=== PATIENT | female | born 1965 | race Two or more races ===

== ENCOUNTER → 2017-04-01 | Outpatient (CLI) | payer BC ==
[~2017-04-01] MED LIST: GEMF600T3; INSU31MI32; LEVO100T8; LEVOTHYROXINE; LISI-646; LISIPOW; METF-312; METF-312 OR; SITA100T7
[2017-04-01 07:14] LABS: Urine RBC None Seen /hpf (0 - 4)
[2017-04-01 07:31] LABS: Urine Bilirubin Negative (Negative); Urine Blood Negative /uL (Negative); Urine Color Yellow (Yellow); Urine Ketone Negative (Negative); Urine Nitrite Negative (Negative); Urine Squamous Epithelial Cell FEW /hpf (<5); Urine Urobilinogen Normal (Negative)
[2017-04-01 07:36] LABS: Basophils # (auto) 0 uL; Basophils % (auto) 0.6 % (0.0-2.0); Eosinophils # (auto) 0.2 uL; Eosinophils % (auto) 3.6 % (0.0-7.0); Hematocrit 41.5 % (36.0-46.0); Hemoglobin 14.4 g/dL (12.2-16.2); Lymphocytes # (auto) 2.3 uL; Lymphocytes % (auto) 33.4 % (10.0-50.0); Mean Corpuscular Hemoglobin 30.7 pg (28.0-32.0); Mean Corpuscular Hgb Conc. 34.6 g/dL (32.0-36.0); Mean Corpuscular Volume 88.7 fL (80.0-100.0); Mean Platelet Volume 9.7 fL (7.4-10.4); Monocytes # (auto) 0.5 uL; Neutrophils # (auto) 3.8 uL; Neutrophils % (auto) 55.4 % (37.0-80.0); Platelet Count (auto) 208 10^3/uL (140-450); Red Cell Distribution Width 12.2 % (11.6-16.0); Urine Glucose 4+ mg/dL (Normal); White Blood Cell 6.8 10^3/uL (4.4-10.8)
[2017-04-01 07:55] LABS: Albumin 3.7 g/dL (3.4-5.0); Alkaline Phosphatase 87 U/L (45-117); Anion Gap 9 (5-15); Aspartate Aminotransferase 77 U/L (15-37); BUN/Creatinine Ratio 13.3; Bilirubin, Total 0.4 mg/dL (0.2-1.0); Blood Urea Nitrogen 10 mg/dL (7-18); Calcium 9.3 mg/dL (8.5-10.1); Carbon Dioxide 26 mmol/L (21-32); Chloride 99 mmol/L (98-107); Cholesterol 174 mg/dL (< 200); GFR African American 104 mL/min; GFR Non-African American 86 mL/min; Glucose 295 mg/dL (74-106); HDL Cholesterol 31 mg/dL (40-59); Potassium 4.1 mmol/L (3.5-5.1); Sodium 134 mmol/L (136-145); Total Protein 8.4 g/dL (6.4-8.2); Triglycerides 412 mg/dL (< 150)
== END | disposition home or self-care (01) ==
LOC: LAB 06:57
PROVIDERS: ATTEND Internal Medicine
DX: Z00.00 Encounter for general adult medical examination without abnormal findings (principal); E78.2 Mixed hyperlipidemia; I10 Essential (primary) hypertension; E55.9 Vitamin D deficiency, unspecified
CPT/HCPCS: 36415; 80053; 80061; 81001; 82043; 82306; 83036; 84443; 85025

== ENCOUNTER 2017-09-17 06:27 | Day surgery (SDC) | payer BC ==
[2017-09-11 09:59] LABS: Basophils # (auto) 0.1 uL; Basophils % (auto) 1.1 % (0.0-2.0); Eosinophils # (auto) 0.2 uL; Eosinophils % (auto) 2.9 % (0.0-7.0); Hematocrit 40.9 % (36.0-46.0); Hemoglobin 14.1 g/dL (12.2-16.2); Lymphocytes # (auto) 2.4 uL; Mean Corpuscular Hgb Conc. 34.3 g/dL (32.0-36.0); Mean Corpuscular Volume 93.1 fL (80.0-100.0); Mean Platelet Volume 9.2 fL (6.9-10.8); Monocytes # (auto) 0.6 uL; Monocytes % (auto) 8.8 % (0.0-12.0); Neutrophils # (auto) 3.4 uL; Neutrophils % (auto) 51.2 % (37.0-80.0); Platelet Count (auto) 161 10^3/uL (140-450); Red Cell Distribution Width 12.3 % (11.8-14.3); White Blood Cell 6.6 10^3/uL (4.4-10.8)
[2017-09-11 10:19] LABS: INR 1.04 (0.9-1.15); Partial Thromboplastin Time 27.5 sec (22.64-33.71); Prothrombin Time 11.3 sec (9.37-12.3)
[2017-09-11 10:22] LABS: Urine Bilirubin Negative (Negative); Urine Blood Negative /uL (Negative); Urine Color Yellow (Yellow); Urine Glucose 4+ mg/dL (Normal); Urine Ketone Negative (Negative); Urine Nitrite Negative (Negative); Urine RBC 2 /hpf (0 - 4); Urine Squamous Epithelial Cell FEW /hpf (<5); Urine Urobilinogen Normal (Negative)
[2017-09-11 10:25] LABS: Albumin 4.4 g/dL (3.4-5.0); BUN/Creatinine Ratio 12.5; Bilirubin, Total 0.7 mg/dL (0.2-1.0); Calcium 9.5 mg/dL (8.5-10.1); Potassium 4.4 mmol/L (3.5-5.1); Total Protein 9.1 g/dL (6.4-8.2)
[~2017-09-17] VITALS: Ht 165.1 cm; Wt 80.7 kg
[~2017-09-17 06:27] MED LIST changes: -GEMF600T3; -INSU31MI32; +INSUINJ37 SUBCUT; -LEVO100T8; +LEVO100T8 PO; -LEVOTHYROXINE; -LISI-646; +LISI-646 PO; -LISIPOW; -METF-312; -METF-312 OR; +METF-372 PO; -SITA100T7; +SITA100T7 PO
[2017-09-17] MEDS ORDERED: NEOMYCIN-BACITRACIN-POLYM 15GM TOP OINT TOP ONE (06:49)
[2017-09-17] MEDS ORDERED: BUPIVACAINE 0.75% INJ 10ML MPV SDV IJ ONE ×2 (06:49→06:50)
[2017-09-17] MEDS ORDERED: DOXAPRAM HCL 20 MG/ML 20ML VIAL INJ IV ONE (06:52)
[2017-09-17] MEDS ORDERED: LIDOCAINE 1% HCL (LOCAL ANESTH.) INJ 20ML MDV ONE (06:52)
[2017-09-17] MEDS ORDERED: SUCCINYLCHOLINE CHLORIDE 20 MG/ML 10ML VIAL IV ONE (06:53)
[2017-09-17] MEDS ORDERED: ceFAZolin 1GM/50ML D5W 50 ML IV ONE (06:53)
[2017-09-17] MEDS ORDERED: MIDAZOLAM HCL 1MG/1ML-2 ML VIAL ONE (07:18)
[2017-09-17] MEDS ORDERED: fentaNYL CITRATE 100 MCG/2 ML VL ONE (07:18)
[2017-09-17] MEDS ORDERED: PROPOFOL 10 MG/ML 20 ML IV ONE (07:18)
[2017-09-17] MEDS ORDERED: SODIUM CHLORIDE LOCK 10 ML ONE (07:18)
[2017-09-17] MEDS ORDERED: METOCLOPRAMIDE HCL 5MG/ml INJ 2ml VIAL ONE (07:18)
[2017-09-17] MEDS ORDERED: ACCU-CHEK COMFORT CURVE STRIP VI ONE (07:30)
[2017-09-17] MEDS ORDERED: KETOROLAC TROMETH 30 MG/ML 1ML VIAL IV ONE (07:30)
[2017-09-17] MEDS ORDERED: METOCLOPRAMIDE HCL 5MG/ml INJ 2ml VIAL IV ONE (07:30)
[2017-09-17] MEDS ORDERED: HYDROmorphone HCL 2 MG/ML VL IV PRN (07:30)
[2017-09-17 09:11] VITALS: BP 103/75
== END 2017-09-17 09:21 | disposition home or self-care (01) ==
LOC: SUR 06:27
PROVIDERS: ATTEND Podiatrist Foot & Ankle Surgery
DX: S92.912A Unspecified fracture of left toe(s), initial encounter for closed fracture (principal); X58.XXXA Exposure to other specified factors, initial encounter; Y93.89 Activity, other specified; Y92.89 Other specified places as the place of occurrence of the external cause; Y99.8 Other external cause status; Z90.710 Acquired absence of both cervix and uterus; Z90.721 Acquired absence of ovaries, unilateral; E11.9 Type 2 diabetes mellitus without complications; Z83.3 Family history of diabetes mellitus; D69.6 Thrombocytopenia, unspecified; J45.909 Unspecified asthma, uncomplicated; F10.99 Alcohol use, unspecified with unspecified alcohol-induced disorder; I10 Essential (primary) hypertension; E03.9 Hypothyroidism, unspecified; E66.9 Obesity, unspecified; Z68.29 Body mass index [BMI] 29.0-29.9, adult
CPT/HCPCS: 28525; 36415; 73660; 76000; 80053; 81001; 82962; 85025; 85610; 85730; J0330; J0690; J1885; J2001; J2250; J2704; J2765; J3010; J3490

== ENCOUNTER → 2018-10-21 | Outpatient (CLI) | payer BC ==
[2018-10-21 08:16] LABS: Basophils # (auto) 0.1 uL; Basophils % (auto) 1.2 % (0.0-2.0); Eosinophils # (auto) 0.1 uL; Eosinophils % (auto) 1.9 % (0.0-7.0); Hematocrit 43.8 % (36.0-46.0); Hemoglobin 14.8 g/dL (12.2-16.2); Lymphocytes # (auto) 2.9 uL; Lymphocytes % (auto) 39.8 % (10.0-50.0); Mean Corpuscular Hemoglobin 31.2 pg (28.0-32.0); Mean Corpuscular Hgb Conc. 33.8 g/dL (32.0-36.0); Mean Corpuscular Volume 92.3 fL (80.0-100.0); Monocytes # (auto) 0.6 uL; Neutrophils # (auto) 3.5 uL; Neutrophils % (auto) 49.1 % (37.0-80.0); Platelet Count (auto) 192 10^3/uL (140-450); Red Blood Cells 4.75 10^6/uL (4.0-5.20); Red Cell Distribution Width 12.4 % (11.8-14.3); White Blood Cell 7.2 10^3/uL (4.4-10.8)
[2018-10-21 08:20] LABS: Urine Bacteria NONE SEEN /hpf (None Seen); Urine Blood Negative /uL (Negative); Urine Specific Gravity 1.024 (1.001-1.035); Urine WBC 3 /hpf (0 - 5)
[2018-10-21 08:28] LABS: Albumin 4.3 g/dL (3.4-5.0); Calcium 9.9 mg/dL (8.5-10.1); Potassium 4.1 mmol/L (3.5-5.1)
[2018-10-21 08:36] LABS: BUN/Creatinine Ratio 12.5; Bilirubin, Total 0.7 mg/dL (0.2-1.0); Total Protein 8.9 g/dL (6.4-8.2)
== END | disposition home or self-care (01) ==
LOC: LAB 07:15
PROVIDERS: ATTEND Physician Assistant
DX: E11.22 Type 2 diabetes mellitus with diabetic chronic kidney disease (principal); N18.2 Chronic kidney disease, stage 2 (mild); E11.21 Type 2 diabetes mellitus with diabetic nephropathy; E78.2 Mixed hyperlipidemia; R70.0 Elevated erythrocyte sedimentation rate; K70.9 Alcoholic liver disease, unspecified; R79.89 Other specified abnormal findings of blood chemistry
CPT/HCPCS: 36415; 80053; 80061; 81001; 83036; 84443; 85025

== ENCOUNTER → 2018-11-20 | Outpatient (CLI) | payer BC | END | disposition home or self-care (01) | LOC: LAB 09:03 | PROVIDERS: ATTEND Urology | DX: N39.0 Urinary tract infection, site not specified (principal) | CPT/HCPCS: 87086 ==

== ENCOUNTER 2019-01-24 22:24 | Emergency (ER) | payer BC ==
[~2019-01-24] VITALS: Ht 160 cm; Wt 63.5 kg
[2019-01-24 22:57] LABS: Basophils # (auto) 0.1 uL; Basophils % (auto) 0.8 % (0.0-2.0); Eosinophils # (auto) 0.1 uL; Eosinophils % (auto) 2.1 % (0.0-7.0); Hematocrit 41.9 % (36.0-46.0); Hemoglobin 14.2 g/dL (12.2-16.2); Lymphocytes # (auto) 2.8 uL; Lymphocytes % (auto) 42.1 % (10.0-50.0); Mean Corpuscular Hemoglobin 31.8 pg (28.0-32.0); Mean Corpuscular Hgb Conc. 33.9 g/dL (32.0-36.0); Mean Corpuscular Volume 93.9 fL (80.0-100.0); Monocytes # (auto) 0.5 uL; Monocytes % (auto) 7.8 % (0.0-12.0); Neutrophils # (auto) 3.2 uL; Neutrophils % (auto) 47.2 % (37.0-80.0); Nucleated Red Blood Cells % 0.1 %; Platelet Count (auto) 134 10^3/uL (140-450); Red Blood Cells 4.46 10^6/uL (4.0-5.20); Red Cell Distribution Width 12.9 % (11.8-14.3); White Blood Cell 6.7 10^3/uL (4.4-10.8)
[2019-01-24 23:15] LABS: Alanine Aminotransferase 75 U/L (13-56); Anion Gap 15 (5-15); Aspartate Aminotransferase 52 U/L (15-37); Blood Urea Nitrogen 9 mg/dL (7-18); Calcium 8.7 mg/dL (8.5-10.1); Carbon Dioxide 20 mmol/L (21-32); Chloride 100 mmol/L (98-107); GFR African American 93 mL/min; GFR Non-African American 77 mL/min; Glucose 373 mg/dL (74-106); Potassium 3.7 mmol/L (3.5-5.1); Sodium 135 mmol/L (136-145)
[2019-01-24 23:21] LABS: Alkaline Phosphatase 94 U/L (45-117); Bilirubin, Total 0.5 mg/dL (0.2-1.0); Total Protein 8.7 g/dL (6.4-8.2)
[2019-01-25 00:56] VITALS: BP 151/97
[2019-01-25 01:06] LABS: Urine Bacteria NONE SEEN /hpf (None Seen); Urine Blood Negative /uL (Negative); Urine Specific Gravity 1.021 (1.001-1.035); Urine WBC <1 /hpf (0 - 5)
[2019-01-25 01:24] LABS: Amphetamine Screen, Urine NEGATIVE (NEGATIVE); Barbiturate Scree,Urine NEGATIVE (NEGATIVE); Benzodiazephine Screen, Urine NEGATIVE (NEGATIVE); Cannabinoid Screen, Urine NEGATIVE (NEGATIVE); Cocaine Screen, Urine NEGATIVE (NEGATIVE); Opiate Scree,Urine NEGATIVE (NEGATIVE); Phencyclidine Screen, Urine NEGATIVE (NEGATIVE)
[2019-01-25] MEDS ORDERED: SODIUM CHLORIDE 0.9% 1,000 ML IV ONE (01:45)
== END 2019-01-25 03:17 | disposition home or self-care (01) ==
LOC: EDBD 22:24 → ER 22:29
DX: E11.65 Type 2 diabetes mellitus with hyperglycemia (principal); F41.9 Anxiety disorder, unspecified; F10.920 Alcohol use, unspecified with intoxication, uncomplicated; R94.5 Abnormal results of liver function studies; M19.90 Unspecified osteoarthritis, unspecified site; E78.5 Hyperlipidemia, unspecified; Z90.710 Acquired absence of both cervix and uterus
CPT/HCPCS: 36415; 70450; 71045; 80053; 80307; 81001; 84484; 85025; 93005; 96360; 99284; J7030

== ENCOUNTER → 2019-03-30 | Outpatient (CLI) | payer BC ==
[~2019-03-30] MED LIST changes: +BUPIVACAINE 0.25% INJ 50ML VIAL ONE; +IOHEXOL 300 MG/ML 100ML BOTTLE IJ ONE; +LIDOCAINE 2%HCL (LOCAL ANESTH.) INJ 20ML MDV ONE; +methylPREDNISolone ACETATE 80 MG/ML VL ONE
== END | disposition home or self-care (01) ==
LOC: XYW 10:25
PROVIDERS: ATTEND Orthopaedic Surgery Adult Reconstructive Orthopaedic Surgery
DX: M75.01 Adhesive capsulitis of right shoulder (principal); Z98.890 Other specified postprocedural states
CPT/HCPCS: 20610; 77002; J1040; J3490; Q9967; 76000

== ENCOUNTER → 2019-11-12 | Outpatient (CLI) | payer BC ==
[~2019-11-12] MED LIST changes: -BUPIVACAINE 0.25% INJ 50ML VIAL ONE; -IOHEXOL 300 MG/ML 100ML BOTTLE IJ ONE; -LIDOCAINE 2%HCL (LOCAL ANESTH.) INJ 20ML MDV ONE; -methylPREDNISolone ACETATE 80 MG/ML VL ONE
== END | disposition home or self-care (01) ==
LOC: XYW 08:55
PROVIDERS: ATTEND Internal Medicine
DX: I10 Essential (primary) hypertension (principal)
CPT/HCPCS: 93306

== ENCOUNTER → 2019-11-16 | Outpatient (CLI) | payer BC ==
[~2019-11-16] VITALS: Ht 167.6 cm; Wt 81.6 kg
[~2019-11-16] MED LIST changes: +ADENOSINE 69 MG in GIVE UN-DILUTED 0 ML IV STA
[2019-11-16 09:27] VITALS: BP 123/76
== END | disposition home or self-care (01) ==
LOC: XY 08:19
PROVIDERS: ATTEND Internal Medicine
DX: R07.9 Chest pain, unspecified (principal)
CPT/HCPCS: 78452; 93017; A9500; J0153

== ENCOUNTER → 2019-12-17 | Outpatient (CLI) | payer BC ==
[~2019-12-17] MED LIST changes: -ADENOSINE 69 MG in GIVE UN-DILUTED 0 ML IV STA
[2019-12-17 08:45] LABS: Cholesterol 115 mg/dL (< 200); HDL Cholesterol 35 mg/dL (40-59); LDL Cholesterol 61 mg/dL (< 100); Triglycerides 180 mg/dL (< 150)
== END | disposition home or self-care (01) ==
LOC: LAB 07:38
PROVIDERS: ATTEND Internal Medicine
DX: I10 Essential (primary) hypertension (principal); E11.9 Type 2 diabetes mellitus without complications; R07.9 Chest pain, unspecified; E78.5 Hyperlipidemia, unspecified
CPT/HCPCS: 36415; 80061

== ENCOUNTER → 2020-07-01 | Outpatient (CLI) | payer BC ==
[2020-07-01 09:19] LABS: Basophils # (auto) 0.1 10 ^3/uL (0-0.2); Eosinophils # (auto) 0.1 10 ^3/uL (0-0.8); Eosinophils % (auto) 1.7 % (0.0-7.0); Hematocrit 44.6 % (36.0-46.0); Hemoglobin 15.1 g/dL (12.2-16.2); Lymphocytes # (auto) 2.6 10 ^3/uL (0.4-5.4); Lymphocytes % (auto) 33.6 % (10.0-50.0); Mean Corpuscular Hemoglobin 31.6 pg (28.0-32.0); Mean Corpuscular Hgb Conc. 33.9 g/dL (32.0-36.0); Mean Corpuscular Volume 93.2 fL (80.0-100.0); Monocytes # (auto) 0.5 10 ^3/uL (0-1.3); Monocytes % (auto) 6.7 % (0.0-12.0); Neutrophils # (auto) 4.4 10 ^3/uL (1.6-8.6); Platelet Count (auto) 183 10^3/uL (140-450); Red Blood Cells 4.78 10^6/uL (4.0-5.20); Red Cell Distribution Width 12.6 % (11.8-14.3); White Blood Cell 7.6 10^3/uL (4.4-10.8)
[2020-07-01 09:22] LABS: Urine Bacteria NONE SEEN /hpf (None Seen); Urine Blood Negative /uL (Negative); Urine Specific Gravity 1.022 (1.001-1.035); Urine WBC 24 /hpf (0 - 5)
[2020-07-01 12:01] LABS: Potassium 4.2 mmol/L (3.5-5.1)
[2020-07-01 12:15] LABS: Albumin 4.2 g/dL (3.4-5.0); BUN/Creatinine Ratio 9.6; Bilirubin, Total 0.6 mg/dL (0.2-1.0); Calcium 10.3 mg/dL (8.5-10.1); Total Protein 8.6 g/dL (6.4-8.2)
[2020-07-03 10:10] LABS: Folate (Folic Acid) 22.75 ng/mL (5.38-24)
== END | disposition home or self-care (01) ==
LOC: LAB 09:07
PROVIDERS: ATTEND Physician Assistant
DX: E11.21 Type 2 diabetes mellitus with diabetic nephropathy (principal); I10 Essential (primary) hypertension; E78.2 Mixed hyperlipidemia; R07.9 Chest pain, unspecified
CPT/HCPCS: 36415; 80053; 80061; 81001; 82746; 83036; 85025

== ENCOUNTER 2020-10-18 13:54 | Inpatient (IN) | payer BC ==
[~2020-10-18] VITALS: Ht 167.6 cm; Wt 72.4 kg
[2020-10-18 15:13] LABS: Basophils # (auto) 0 10 ^3/uL (0-0.2); Basophils % (auto) 0.2 % (0.0-2.0); Eosinophils # (auto) 0.2 10 ^3/uL (0-0.8); Eosinophils % (auto) 1.7 % (0.0-7.0); Hematocrit 45.5 % (36.0-46.0); Hemoglobin 15.4 g/dL (12.2-16.2); Lymphocytes # (auto) 2.7 10 ^3/uL (0.4-5.4); Mean Corpuscular Hemoglobin 32.5 pg (28.0-32.0); Mean Corpuscular Hgb Conc. 33.9 g/dL (32.0-36.0); Mean Corpuscular Volume 95.9 fL (80.0-100.0); Monocytes # (auto) 0.7 10 ^3/uL (0-1.3); Monocytes % (auto) 8.2 % (0.0-12.0); Neutrophils # (auto) 5.1 10 ^3/uL (1.6-8.6); Neutrophils % (auto) 58.9 % (37.0-80.0); Platelet Count (auto) 196 10^3/uL (140-450); Red Blood Cells 4.75 10^6/uL (4.0-5.20); Red Cell Distribution Width 12.7 % (11.8-14.3); White Blood Cell 8.7 10^3/uL (4.4-10.8)
[2020-10-18 15:28] LABS: Urine Bacteria NONE SEEN /hpf (None Seen); Urine Blood Negative /uL (Negative); Urine Specific Gravity 1.025 (1.001-1.035); Urine WBC 1 /hpf (0 - 5)
[2020-10-18 15:33] LABS: Albumin 3.9 g/dL (3.4-5.0); Calcium 9.1 mg/dL (8.5-10.1); Potassium 4.1 mmol/L (3.5-5.1)
[2020-10-18 15:41] LABS: BUN/Creatinine Ratio 8.2; Bilirubin, Total 0.5 mg/dL (0.2-1.0); Total Protein 8.6 g/dL (6.4-8.2)
[2020-10-18] MEDS ORDERED: SODIUM CHLORIDE 0.9% 1,000 ML IVB ONE (18:00)
[2020-10-18] MEDS ORDERED: cefTRIAXone 1GM/50ML D5W 50 ML IV ONE (18:00)
[2020-10-18] MEDS ORDERED: ONDANSETRON HCL 4 MG/2 ML VIAL IV ONE (18:00)
[2020-10-18] MEDS ORDERED: MORPHINE SULF INJ 2 MG/ML SYRINGE 1ML IV ONE (18:00)
[2020-10-18] MEDS ORDERED: metroNIDAZOLE 500MG/100ML 100 ML IV ONE (18:00)
[2020-10-18] MEDS ORDERED: DEXTROSE (50%) 50ML SYRG IV PRN (21:45)
[2020-10-18] MEDS: MORPHINE SULF INJ 2 MG/ML SYRINGE 1ML IV PRN (21:56)
[2020-10-18] MEDS: SODIUM CHLORIDE 0.9% 1,000 ML IV SCH (22:02)
[2020-10-19] MEDS: ACCU-CHEK COMFORT CURVE STRIP VI SCH ×5 (00:08→23:56)
[2020-10-19] MEDS: MORPHINE SULF INJ 2 MG/ML SYRINGE 1ML IV PRN ×4 (02:52→20:24)
[2020-10-19] MEDS: InsuLIN REG 1unit/0.01ml Soln (100units/ml) SC SCH ×4 (06:00→17:51)
[2020-10-19] MEDS: metroNIDAZOLE 500MG/100ML 100 ML IV SCH ×3 (06:15→22:12)
[2020-10-19 06:56] LABS: Basophils # (auto) 0 10 ^3/uL (0-0.2); Basophils % (auto) 0.4 % (0.0-2.0); Eosinophils # (auto) 0.2 10 ^3/uL (0-0.8); Eosinophils % (auto) 2.7 % (0.0-7.0); Hemoglobin 13.3 g/dL (12.2-16.2); Lymphocytes # (auto) 2.3 10 ^3/uL (0.4-5.4); Lymphocytes % (auto) 34.3 % (10.0-50.0); Mean Corpuscular Hemoglobin 32.3 pg (28.0-32.0); Mean Corpuscular Hgb Conc. 33.4 g/dL (32.0-36.0); Mean Corpuscular Volume 96.7 fL (80.0-100.0); Monocytes # (auto) 0.6 10 ^3/uL (0-1.3); Monocytes % (auto) 8.8 % (0.0-12.0); Neutrophils # (auto) 3.6 10 ^3/uL (1.6-8.6); Neutrophils % (auto) 53.8 % (37.0-80.0); Nucleated Red Blood Cells % 0.1 %; Platelet Count (auto) 142 10^3/uL (140-450); Red Blood Cells 4.13 10^6/uL (4.0-5.20); Red Cell Distribution Width 12.6 % (11.8-14.3); White Blood Cell 6.7 10^3/uL (4.4-10.8)
[2020-10-19 07:13] LABS: Albumin 3.2 g/dL (3.4-5.0); Calcium 8.6 mg/dL (8.5-10.1)
[2020-10-19 07:15] LABS: BUN/Creatinine Ratio 13.8
[2020-10-19 07:27] LABS: Bilirubin, Total 0.4 mg/dL (0.2-1.0); Total Protein 6.8 g/dL (6.4-8.2)
[2020-10-19] MEDS: cefTRIAXone 1GM/50ML D5W 50 ML IV SCH (08:50)
[2020-10-19] MEDS: ONDANSETRON HCL 4 MG/2 ML VIAL IV PRN ×2 (08:50→15:54)
[2020-10-19] MEDS ORDERED: PANTOPRAZOLE 40 MG/10 ML VIAL INJ IV SCH (10:00)
[2020-10-19] MEDS: SODIUM CHLORIDE 0.9% 1,000 ML IV SCH (11:27)
[2020-10-19 14:23] VITALS: BP 117/69
[2020-10-19] MEDS ORDERED: ATOR20TA50 PO (14:59)
[2020-10-19] MEDS ORDERED: MELA3TAB27 PO (14:59)
[2020-10-19 16:24] LABS: INR 1.08 (0.9-1.15)
[2020-10-19 16:47] VITALS: BP 117/69
[2020-10-19] MEDS: SUCRALFATE 1 GM/10 ML ORAL SUSP PO SCH ×2 (17:51→22:10)
--- NOTE | 2020-10-19 19:20 | NUR ---
Opening Shift Note Assumed care of patient, awake and alert. No S/S of distress/SOB. Instructed on POC and to call for assist PRN, will continue to monitor for changes Q1hr and PRN. Bed locked and in lowest position with call light within reach.
[2020-10-19 20:00] VITALS: BP 115/70
[2020-10-19 22:00] VITALS: BP 115/70
[2020-10-19] MEDS: PANTOPRAZOLE 40 MG/10 ML VIAL INJ IV SCH (22:11)
[2020-10-20] MEDS: SODIUM CHLORIDE 0.9% 1,000 ML IV SCH ×2 (00:25→13:45)
[2020-10-20 05:00] VITALS: BP 109/62
[2020-10-20] MEDS: metroNIDAZOLE 500MG/100ML 100 ML IV SCH ×3 (05:31→22:28)
[2020-10-20] MEDS: ACCU-CHEK COMFORT CURVE STRIP VI SCH ×4 (05:43→23:56)
[2020-10-20] MEDS: InsuLIN REG 1unit/0.01ml Soln (100units/ml) SC SCH ×4 (05:44→17:30)
[2020-10-20] MEDS: SUCRALFATE 1 GM/10 ML ORAL SUSP PO SCH ×4 (06:44→22:28)
--- NOTE | 2020-10-20 07:30 | NUR ---
Opening Shift Note Assumed care of patient, awake and alert. No S/S of distress/SOB or pain on room air. Instructed on POC and to call for assist PRN, will continue to monitor for changes Q1hr and PRN. Bed in low and locked position, rails up x2, no-slip socks on. Patient NPO status maintained for procedure today.
[2020-10-20] MEDS ORDERED: SODIUM CHLORIDE LOCK 10 ML ONE (08:35)
[2020-10-20] MEDS ORDERED: LIDOCAINE VISCOUS 2% 15ML UD ONE (08:35)
[2020-10-20] MEDS ORDERED: diphenhdrAMINE HCL 50 MG/1 ML VL ONE (08:35)
--- NOTE | 2020-10-20 08:55 | NUR ---
PATIENT OFF UNIT FOR PROCEDURE EGD
--- NOTE | 2020-10-20 11:00 | NUR ---
DR VERDIN AWAITING PATIENT RETURN
[2020-10-20] MEDS: fentaNYL CITRATE 100 MCG/2 ML VL ONE ×2 (11:04→11:07)
[2020-10-20] MEDS: MIDAZOLAM HCL 5 MG/ML-1ML VIAL ONE ×2 (11:04→11:07)
[2020-10-20] MEDS: cefTRIAXone 1GM/50ML D5W 50 ML IV SCH (11:55)
[2020-10-20] MEDS: PANTOPRAZOLE 40 MG/10 ML VIAL INJ IV SCH ×2 (11:55→22:28)
--- NOTE | 2020-10-20 13:00 | NUR ---
DR VERDIN AT BEDSIDE
[2020-10-20] MEDS ORDERED: ACETAMINOPHEN 325 MG TAB PO PRN (16:45)
[2020-10-20] MEDS ORDERED: POLYETHYLENE GLYCOL 17 GM PWDR PO ONE (16:45)
[2020-10-20 17:00] VITALS: BP 117/78
[2020-10-20] MEDS: MORPHINE SULF INJ 2 MG/ML SYRINGE 1ML IV PRN (18:11)
[2020-10-20] MEDS: ONDANSETRON HCL 4 MG/2 ML VIAL IV PRN (18:11)
[2020-10-20 22:00] VITALS: BP 100/62
[2020-10-21] MEDS: MORPHINE SULF INJ 2 MG/ML SYRINGE 1ML IV PRN ×3 (00:05→11:24)
[2020-10-21] MEDS: InsuLIN REG 1unit/0.01ml Soln (100units/ml) SC SCH ×3 (00:23→12:15)
[2020-10-21] MEDS: SODIUM CHLORIDE 0.9% 1,000 ML IV SCH (03:20)
[2020-10-21 05:00] VITALS: BP 103/69
[2020-10-21] MEDS: ACCU-CHEK COMFORT CURVE STRIP VI SCH ×2 (06:03→12:12)
[2020-10-21] MEDS: SUCRALFATE 1 GM/10 ML ORAL SUSP PO SCH ×2 (06:26→11:24)
[2020-10-21] MEDS: metroNIDAZOLE 500MG/100ML 100 ML IV SCH (06:26)
--- NOTE | 2020-10-21 08:00 | NUR ---
OPENING SHIFT NOTE ASSUMED CARE OF PATIENT AWAKE AND ALERT. NO S/S OF DISTRESS NOTED. PATIENT UPDATED ON POC FOR THE DAY AND ALL QUESTIONS ANSWERED. BED IS IN LOWEST, LOCKED POSITION WITH SIDE RAILS UP X2 AND CALL LIGHT WITHIN REACH. WILL CONTINUE TO MONITOR Q1H AND PRN.
[2020-10-21 09:10] VITALS: BP 99/66
[2020-10-21] MEDS ORDERED: POLYETHYLENE GLYCOL 17 GM PWDR PO SCH (10:00)
[2020-10-21] MEDS: PANTOPRAZOLE 40 MG/10 ML VIAL INJ IV SCH (10:03)
[2020-10-21] MEDS: cefTRIAXone 1GM/50ML D5W 50 ML IV SCH (10:03)
--- NOTE | 2020-10-21 13:46 | NUR ---
Discharge instructions given as ordered. Encourage to follow up with PMD as instructed. All questions and concerns addressed. Patient verbalized understanding. IV removed with catheter intact, pressure dressing applied. Patient taken to vehicle via wheelchair with all personal belongings, accompanied by staff. Medications picked up at [facility]. No distress noted at time of departure.
== END 2020-10-21 13:45 | disposition home or self-care (01) | DRG 392 ==
LOC: ER 13:54 → OVERFLOW 13:55 → CENTRAL 10-19 13:47
PROVIDERS: ADMIT Nurse Practitioner; ATTEND Internal Medicine
PROC: 0DB68ZX Excision of Stomach, Via Natural or Artificial Opening Endoscopic, Diagnostic (ICD-10-PCS; 2020-10-20)
PROC: 0DBA8ZX Excision of Jejunum, Via Natural or Artificial Opening Endoscopic, Diagnostic (ICD-10-PCS; 2020-10-20)
PROC: 0DB98ZX Excision of Duodenum, Via Natural or Artificial Opening Endoscopic, Diagnostic (ICD-10-PCS; principal; 2020-10-20 11:01)
DX: K29.70 Gastritis, unspecified, without bleeding (principal); K52.9 Noninfective gastroenteritis and colitis, unspecified; D72.829 Elevated white blood cell count, unspecified; Z20.828 Contact with and (suspected) exposure to other viral communicable diseases; E11.9 Type 2 diabetes mellitus without complications; E27.8 Other specified disorders of adrenal gland; E78.5 Hyperlipidemia, unspecified; I10 Essential (primary) hypertension; M19.90 Unspecified osteoarthritis, unspecified site; K29.80 Duodenitis without bleeding; K80.20 Calculus of gallbladder without cholecystitis without obstruction; R16.0 Hepatomegaly, not elsewhere classified; Z79.4 Long term (current) use of insulin; Z82.49 Family history of ischemic heart disease and other diseases of the circulatory system; Z83.3 Family history of diabetes mellitus; Z90.710 Acquired absence of both cervix and uterus; Z79.899 Other long term (current) drug therapy; E66.9 Obesity, unspecified; Z68.25 Body mass index [BMI] 25.0-25.9, adult
CPT/HCPCS: 36415; 71045; 74176; 74181; 76705; 78226; 80053; 81001; 82962; 83036; 83690; 83735; 85025; 85610; 86850; 86900; 86901; 93005; 96365; 96367; 96375; C9113; G0378; J0696; J1815; J2250; J2405; J3490

== ENCOUNTER 2020-10-22 18:51 | Inpatient (IN) | payer BC ==
[~2020-10-22] VITALS: Ht 167.6 cm; Wt 81.9 kg
[~2020-10-22 18:51] MED LIST changes: +ATOR20TA50 PO; +MELA3TAB27 PO
[2020-10-22] MEDS ORDERED: ONDANSETRON HCL 4 MG/2 ML VIAL IV ONE (19:30)
[2020-10-22] MEDS ORDERED: MORPHINE SULFATE 4 MG/ML SYR/VIAL IV ONE (19:30)
[2020-10-22] MEDS ORDERED: SODIUM CHLORIDE 0.9% 500 ML IVB ONE (19:30)
[2020-10-22 19:48] LABS: Basophils # (auto) 0.1 10 ^3/uL (0-0.2); Basophils % (auto) 0.8 % (0.0-2.0); Eosinophils # (auto) 0.1 10 ^3/uL (0-0.8); Eosinophils % (auto) 0.9 % (0.0-7.0); Lymphocytes # (auto) 2.3 10 ^3/uL (0.4-5.4); Lymphocytes % (auto) 18.8 % (10.0-50.0); Mean Corpuscular Hemoglobin 32.2 pg (28.0-32.0); Mean Corpuscular Hgb Conc. 34.1 g/dL (32.0-36.0); Mean Corpuscular Volume 94.5 fL (80.0-100.0); Monocytes # (auto) 0.9 10 ^3/uL (0-1.3); Monocytes % (auto) 7.2 % (0.0-12.0); Neutrophils # (auto) 8.9 10 ^3/uL (1.6-8.6); Neutrophils % (auto) 72.3 % (37.0-80.0); Nucleated Red Blood Cells % 0.1 %; Platelet Count (auto) 238 10^3/uL (140-450); Red Blood Cells 4.97 10^6/uL (4.0-5.20); Red Cell Distribution Width 12.7 % (11.8-14.3); White Blood Cell 12.3 10^3/uL (4.4-10.8)
[2020-10-22 20:01] LABS: Urine Bacteria FEW /hpf (None Seen); Urine Blood Negative /uL (Negative); Urine Mucus FEW (None Seen); Urine Specific Gravity 1.035 (1.001-1.035); Urine WBC 3 /hpf (0 - 5)
[2020-10-22 20:08] LABS: Albumin 3.7 g/dL (3.4-5.0); Calcium 9.6 mg/dL (8.5-10.1); Potassium 3.9 mmol/L (3.5-5.1)
[2020-10-22 20:13] LABS: BUN/Creatinine Ratio 17.1; Bilirubin, Total 0.6 mg/dL (0.2-1.0)
[2020-10-22 20:17] LABS: Lipase 139 U/L (73-393)
[2020-10-23] MEDS ORDERED: HYDROcodone-ACET 5/325MG TAB PO PRN (02:30)
[2020-10-23] MEDS ORDERED: ONDANSETRON HCL 4 MG/2 ML VIAL IV PRN (02:30)
[2020-10-23] MEDS ORDERED: MORPHINE SULFATE 4 MG/ML SYR/VIAL IV PRN (02:30)
[2020-10-23] MEDS ORDERED: DEXTROSE (50%) 50ML SYRG IV PRN (02:30)
[2020-10-23] MEDS ORDERED: ACETAMINOPHEN 325 MG TAB PO PRN (02:30)
[2020-10-23 03:30] VITALS: BP 125/79
[2020-10-23] MEDS: SODIUM CHLORIDE 0.9% 1,000 ML IV SCH ×2 (03:47→15:50)
[2020-10-23 05:00] VITALS: BP 123/74
[2020-10-23] MEDS: ACCU-CHEK COMFORT CURVE STRIP VI SCH ×3 (06:08→17:32)
[2020-10-23] MEDS: LEVOTHYROXINE SODIUM 100 MCG TAB PO SCH (06:08)
[2020-10-23] MEDS: metroNIDAZOLE 500MG/100ML 100 ML IV SCH ×3 (06:08→22:08)
[2020-10-23] MEDS: InsuLIN REG 1unit/0.01ml Soln (100units/ml) SC SCH ×3 (06:09→17:28)
[2020-10-23 09:00] VITALS: BP 126/84
[2020-10-23] MEDS: PANTOPRAZOLE 40 MG/10 ML VIAL INJ IV SCH ×2 (10:02→22:08)
[2020-10-23] MEDS: cefTRIAXone 1GM/50ML D5W 50 ML IV SCH (10:03)
[2020-10-23] MEDS: LISINOPRIL 20 MG TAB PO SCH (10:04)
[2020-10-23] MEDS ORDERED: POLYETHYLENE GLYCOL 17 GM PWDR PO ONE (11:00)
[2020-10-23] MEDS: SUCRALFATE 1 GM TAB PO SCH ×3 (11:45→22:08)
[2020-10-23] MEDS ORDERED: GOLYTELY 4L KIT PO ONE (13:45)
[2020-10-23 17:00] VITALS: BP 119/84
[2020-10-23 22:00] VITALS: BP 108/66
[2020-10-23] MEDS: ATORVASTATIN 20 MG TAB PO SCH (22:08)
[2020-10-24] MEDS: ACCU-CHEK COMFORT CURVE STRIP VI SCH ×4 (00:12→18:02)
[2020-10-24 05:06] VITALS: BP 106/68
[2020-10-24] MEDS: SODIUM CHLORIDE 0.9% 1,000 ML IV SCH ×2 (05:21→18:30)
[2020-10-24] MEDS: metroNIDAZOLE 500MG/100ML 100 ML IV SCH ×3 (05:56→21:57)
[2020-10-24] MEDS ORDERED: GOLYTELY 4L KIT PO ONE (06:00)
[2020-10-24] MEDS: LEVOTHYROXINE SODIUM 100 MCG TAB PO SCH (06:34)
[2020-10-24] MEDS: SUCRALFATE 1 GM TAB PO SCH ×4 (06:34→21:57)
[2020-10-24] MEDS: InsuLIN REG 1unit/0.01ml Soln (100units/ml) SC SCH ×4 (06:41→18:06)
[2020-10-24 06:53] LABS: Basophils # (auto) 0 10 ^3/uL (0-0.2); Basophils % (auto) 0.3 % (0.0-2.0); Eosinophils # (auto) 0.1 10 ^3/uL (0-0.8); Eosinophils % (auto) 1.6 % (0.0-7.0); Hematocrit 40.4 % (36.0-46.0); Hemoglobin 13.5 g/dL (12.2-16.2); Lymphocytes # (auto) 2.3 10 ^3/uL (0.4-5.4); Lymphocytes % (auto) 27.7 % (10.0-50.0); Mean Corpuscular Hgb Conc. 33.5 g/dL (32.0-36.0); Mean Corpuscular Volume 95.5 fL (80.0-100.0); Monocytes # (auto) 0.8 10 ^3/uL (0-1.3); Monocytes % (auto) 9.5 % (0.0-12.0); Neutrophils # (auto) 5.1 10 ^3/uL (1.6-8.6); Neutrophils % (auto) 60.9 % (37.0-80.0); Nucleated Red Blood Cells % 0.1 %; Platelet Count (auto) 180 10^3/uL (140-450); Red Blood Cells 4.23 10^6/uL (4.0-5.20); Red Cell Distribution Width 12.2 % (11.8-14.3); White Blood Cell 8.4 10^3/uL (4.4-10.8)
[2020-10-24 07:05] LABS: INR 1.09 (0.9-1.15); Partial Thromboplastin Time 25.5 sec (23.0-31.2)
[2020-10-24 07:07] LABS: Albumin 2.8 g/dL (3.4-5.0); Calcium 8.4 mg/dL (8.5-10.1); Potassium 3.3 mmol/L (3.5-5.1)
[2020-10-24 07:24] LABS: Bilirubin, Total 0.5 mg/dL (0.2-1.0); Total Protein 6.2 g/dL (6.4-8.2)
[2020-10-24] MEDS ORDERED: POTASSIUM CHL 20 Meq TABLET PO ONE (08:15)
[2020-10-24] MEDS ORDERED: SODIUM CHLORIDE LOCK 10 ML ONE (08:38)
[2020-10-24] MEDS ORDERED: diphenhdrAMINE HCL 50 MG/1 ML VL ONE (08:39)
[2020-10-24 09:00] VITALS: BP 103/65
[2020-10-24] MEDS: LISINOPRIL 20 MG TAB PO SCH (10:00)
[2020-10-24] MEDS: PANTOPRAZOLE 40 MG/10 ML VIAL INJ IV SCH ×2 (10:10→22:17)
[2020-10-24] MEDS: cefTRIAXone 1GM/50ML D5W 50 ML IV SCH (10:10)
[2020-10-24] MEDS: fentaNYL CITRATE 100 MCG/2 ML VL ONE ×3 (11:32→11:39)
[2020-10-24] MEDS: MIDAZOLAM HCL 5 MG/ML-1ML VIAL ONE ×3 (11:32→11:39)
[2020-10-24 13:00] VITALS: BP 102/61
[2020-10-24 16:22] VITALS: BP 118/71
[2020-10-24] MEDS: ATORVASTATIN 20 MG TAB PO SCH (21:57)
[2020-10-24 22:00] VITALS: BP 100/66
[2020-10-25] MEDS: ACCU-CHEK COMFORT CURVE STRIP VI SCH ×3 (00:46→11:22)
[2020-10-25] MEDS: InsuLIN REG 1unit/0.01ml Soln (100units/ml) SC SCH ×3 (00:47→11:22)
[2020-10-25 05:00] VITALS: BP 90/58
[2020-10-25] MEDS: LEVOTHYROXINE SODIUM 100 MCG TAB PO SCH (06:13)
[2020-10-25] MEDS: metroNIDAZOLE 500MG/100ML 100 ML IV SCH ×2 (06:13→13:18)
[2020-10-25] MEDS: SUCRALFATE 1 GM TAB PO SCH ×2 (06:14→11:22)
[2020-10-25 07:27] LABS: Potassium 3.7 mmol/L (3.5-5.1)
[2020-10-25 07:32] LABS: Calcium 8.4 mg/dL (8.5-10.1); Magnesium 1.9 mg/dL (1.6-2.6)
[2020-10-25] MEDS: SODIUM CHLORIDE 0.9% 1,000 ML IV SCH (07:50)
[2020-10-25 08:43] VITALS: BP 108/70
[2020-10-25] MEDS: cefTRIAXone 1GM/50ML D5W 50 ML IV SCH (09:09)
[2020-10-25] MEDS: LISINOPRIL 20 MG TAB PO SCH (09:09)
[2020-10-25] MEDS: PANTOPRAZOLE 40 MG/10 ML VIAL INJ IV SCH (09:09)
[2020-10-25 13:00] VITALS: BP 98/56
== END 2020-10-25 15:10 | disposition home or self-care (01) | DRG 392 ==
LOC: ER 18:55 → OVERFLOW 18:56 → WEST WING 10-23 03:27
PROVIDERS: ADMIT Nurse Practitioner; ATTEND Internal Medicine
PROC: 0DBF8ZX Excision of Right Large Intestine, Via Natural or Artificial Opening Endoscopic, Diagnostic (ICD-10-PCS; 2020-10-24)
PROC: 0DBB8ZX Excision of Ileum, Via Natural or Artificial Opening Endoscopic, Diagnostic (ICD-10-PCS; principal; 2020-10-24 11:29)
DX: K52.9 Noninfective gastroenteritis and colitis, unspecified (principal); N39.0 Urinary tract infection, site not specified; E11.9 Type 2 diabetes mellitus without complications; E27.8 Other specified disorders of adrenal gland; E78.5 Hyperlipidemia, unspecified; I10 Essential (primary) hypertension; Z20.828 Contact with and (suspected) exposure to other viral communicable diseases; K29.70 Gastritis, unspecified, without bleeding; K29.80 Duodenitis without bleeding; Z82.49 Family history of ischemic heart disease and other diseases of the circulatory system; Z83.3 Family history of diabetes mellitus; Z90.710 Acquired absence of both cervix and uterus
CPT/HCPCS: 36415; 71045; 74176; 80048; 80053; 81001; 82962; 83690; 83735; 84484; 85025; 85610; 85730; 86850; 86900; 86901; 87081; C9113; G0378; J0696; J1815; J2250; J2405; J3490

== ENCOUNTER → 2021-04-12 | Outpatient (CLI) | payer BC ==
[~2021-04-12] MED LIST changes: -LISI-646 PO; +LISI20TA28 PO
[2021-04-12 08:12] LABS: Basophils # (auto) 0 10 ^3/uL (0-0.2); Basophils % (auto) 0.6 % (0.0-2.0); Eosinophils # (auto) 0.1 10 ^3/uL (0-0.8); Eosinophils % (auto) 1.4 % (0.0-7.0); Lymphocytes % (auto) 37.5 % (10.0-50.0); Mean Corpuscular Hemoglobin 32.7 pg (28.0-32.0); Mean Corpuscular Hgb Conc. 34.9 g/dL (32.0-36.0); Mean Corpuscular Volume 93.9 fL (80.0-100.0); Monocytes # (auto) 0.5 10 ^3/uL (0-1.3); Monocytes % (auto) 6.9 % (0.0-12.0); Neutrophils # (auto) 4.3 10 ^3/uL (1.6-8.6); Neutrophils % (auto) 53.6 % (37.0-80.0); Nucleated Red Blood Cells % 0.1 %; Platelet Count (auto) 175 10^3/uL (140-450); Red Blood Cells 4.59 10^6/uL (4.0-5.20); Red Cell Distribution Width 12.6 % (11.8-14.3); White Blood Cell 7.9 10^3/uL (4.4-10.8)
[2021-04-12 08:29] LABS: Calcium 10.8 mg/dL (8.5-10.1); Potassium 4.4 mmol/L (3.5-5.1)
[2021-04-12 08:35] LABS: BUN/Creatinine Ratio 12.2; Bilirubin, Total 0.7 mg/dL (0.2-1.0); Total Protein 8.4 g/dL (6.4-8.2)
[2021-04-12 09:43] LABS: Folate (Folic Acid) > 24.00 ng/mL (5.38-24)
== END | disposition home or self-care (01) ==
LOC: LAB 07:42
PROVIDERS: ATTEND Physician Assistant
DX: E11.21 Type 2 diabetes mellitus with diabetic nephropathy (principal); I10 Essential (primary) hypertension; E78.5 Hyperlipidemia, unspecified; K70.9 Alcoholic liver disease, unspecified; F10.20 Alcohol dependence, uncomplicated
CPT/HCPCS: 36415; 80053; 80061; 82043; 82746; 83036; 85025

== ENCOUNTER → 2021-05-24 | Outpatient (CLI) | payer BC ==
[~2021-05-24] MED LIST changes: +EMPA1TAB PO; +GLIP5TAB12 PO
== END | disposition home or self-care (01) ==
LOC: LAB 14:25
PROVIDERS: ATTEND Nurse Practitioner Family
DX: E11.65 Type 2 diabetes mellitus with hyperglycemia (principal); R53.83 Other fatigue; R23.3 Spontaneous ecchymoses
CPT/HCPCS: 36415; 84443; 85652; 86038; 86141

== ENCOUNTER 2021-05-25 12:39 | Inpatient (IN) | payer BC ==
[~2021-05-25] VITALS: Ht 167.6 cm; Wt 77.7 kg
[~2021-05-25 12:39] MED LIST changes: -EMPA1TAB PO; -GLIP5TAB12 PO
[2021-05-25] MEDS ORDERED: MORPHINE SULFATE 4 MG/ML SYR/VIAL IV ONE (13:30)
[2021-05-25] MEDS ORDERED: ONDANSETRON HCL 4 MG/2 ML VIAL IV ONE (13:30)
[2021-05-25] MEDS ORDERED: SODIUM CHLORIDE 0.9% 500 ML IVB ONE (13:30)
[2021-05-25 14:13] LABS: Basophils # (auto) 0.1 10 ^3/uL (0-0.2); Basophils % (auto) 1.1 % (0.0-2.0); Eosinophils # (auto) 0.1 10 ^3/uL (0-0.8); Eosinophils % (auto) 0.6 % (0.0-7.0); Hematocrit 41.9 % (36.0-46.0); Hemoglobin 14.7 g/dL (12.2-16.2); Lymphocytes # (auto) 3.4 10 ^3/uL (0.4-5.4); Mean Corpuscular Hemoglobin 32.2 pg (28.0-32.0); Mean Corpuscular Hgb Conc. 35.2 g/dL (32.0-36.0); Mean Corpuscular Volume 91.4 fL (80.0-100.0); Monocytes % (auto) 9.5 % (0.0-12.0); Neutrophils # (auto) 6.3 10 ^3/uL (1.6-8.6); Neutrophils % (auto) 57.8 % (37.0-80.0); Nucleated Red Blood Cells % 0.1 %; Red Blood Cells 4.58 10^6/uL (4.0-5.20); Red Cell Distribution Width 12.3 % (11.8-14.3); White Blood Cell 10.9 10^3/uL (4.4-10.8)
[2021-05-25 14:29] LABS: Alanine Aminotransferase 74 U/L (13-56); Albumin 3.7 g/dL (3.4-5.0); Amylase 67 U/L (25-115); Anion Gap 7 (5-15); Aspartate Aminotransferase 60 U/L (15-37); BUN/Creatinine Ratio 11.1; Blood Urea Nitrogen 8 mg/dL (7-18); Calcium 9.1 mg/dL (8.5-10.1); Carbon Dioxide 26 mmol/L (21-32); Chloride 101 mmol/L (98-107); GFR African American 107 mL/min; GFR Non-African American 89 mL/min; Glucose 163 mg/dL (74-106); Lipase 137 U/L (73-393); Potassium 3.8 mmol/L (3.5-5.1); Sodium 134 mmol/L (136-145)
[2021-05-25 14:34] LABS: Alkaline Phosphatase 81 U/L (45-117); Bilirubin, Total 0.8 mg/dL (0.2-1.0); Total Protein 8.4 g/dL (6.4-8.2)
[2021-05-25 14:52] LABS: Urine Bacteria NONE SEEN /hpf (None Seen); Urine Blood 2+ /uL (Negative); Urine Specific Gravity 1.029 (1.001-1.035); Urine WBC None Seen /hpf (0 - 5)
[2021-05-25] MEDS ORDERED: LABETALOL HCL 5 MG/ML 4ML SYRINGE IV PRN (15:15)
[2021-05-25] MEDS ORDERED: SODIUM CHLORIDE 0.9% 500 ML IV ONE (15:15)
[2021-05-25] MEDS ORDERED: LORazepam 2MG/ML-1ML VIAL IV PRN (15:15)
[2021-05-25] MEDS ORDERED: MORPHINE SULFATE INJECTION 2 MG/ML SYRG IV PRN (15:15)
[2021-05-25] MEDS ORDERED: NITROGLYCERIN 0.4 MG SL TAB SL PRN (15:15)
[2021-05-25] MEDS ORDERED: ACETAMINOPHEN 325 MG RECT SUPP PR PRN (15:15)
[2021-05-25] MEDS ORDERED: GLYCERIN ADULT RECTAL SUPP PR SCH (15:15)
[2021-05-25] MEDS ORDERED: DEXTROSE (50%) 50ML SYRG IV PRN (15:30)
[2021-05-25] MEDS ORDERED: GLYCERIN ADULT RECTAL SUPP PR PRN (16:00)
[2021-05-25 16:44] LABS: INR 1.1 (0.9-1.15); Partial Thromboplastin Time 26.9 sec (23.0-31.2)
[2021-05-25] MEDS: SODIUM CHLORIDE 0.9% 1,000 ML IV SCH ×2 (16:51→20:21)
[2021-05-25] MEDS: ACCU-CHEK COMFORT CURVE STRIP VI SCH (17:37)
[2021-05-25] MEDS: InsuLIN REG 1unit/0.01ml Soln (100units/ml) SC SCH (18:00)
[2021-05-25] MEDS: HYDROmorphone HCL 2 MG/ML VL IV PRN (21:19)
[2021-05-25 22:00] VITALS: BP 115/70
[2021-05-25 22:40] VITALS: BP 115/70
[2021-05-26] MEDS: ACCU-CHEK COMFORT CURVE STRIP VI SCH ×4 (00:20→16:46)
[2021-05-26] MEDS ORDERED: GLIP5TAB12 PO (04:52)
[2021-05-26] MEDS ORDERED: EMPA1TAB PO (04:52)
[2021-05-26] MEDS: HYDROmorphone HCL 2 MG/ML VL IV PRN ×3 (05:13→13:14)
[2021-05-26] MEDS: InsuLIN REG 1unit/0.01ml Soln (100units/ml) SC SCH ×4 (05:14→17:20)
[2021-05-26 05:24] LABS: Basophils # (auto) 0 10 ^3/uL (0-0.2); Basophils % (auto) 0.6 % (0.0-2.0); Eosinophils # (auto) 0.2 10 ^3/uL (0-0.8); Eosinophils % (auto) 2.2 % (0.0-7.0); Hemoglobin 13.1 g/dL (12.2-16.2); Lymphocytes # (auto) 2.3 10 ^3/uL (0.4-5.4); Lymphocytes % (auto) 32.9 % (10.0-50.0); Mean Corpuscular Hemoglobin 31.8 pg (28.0-32.0); Mean Corpuscular Hgb Conc. 34.4 g/dL (32.0-36.0); Mean Corpuscular Volume 92.3 fL (80.0-100.0); Monocytes # (auto) 0.6 10 ^3/uL (0-1.3); Monocytes % (auto) 8.9 % (0.0-12.0); Neutrophils # (auto) 3.8 10 ^3/uL (1.6-8.6); Neutrophils % (auto) 55.4 % (37.0-80.0); Nucleated Red Blood Cells % 0.1 %; Red Blood Cells 4.11 10^6/uL (4.0-5.20); Red Cell Distribution Width 12.5 % (11.8-14.3); White Blood Cell 6.9 10^3/uL (4.4-10.8)
[2021-05-26 05:29] VITALS: BP 108/73
[2021-05-26 06:03] LABS: Potassium 4.2 mmol/L (3.5-5.1)
[2021-05-26 06:14] LABS: BUN/Creatinine Ratio 14.8; Bilirubin, Total 0.7 mg/dL (0.2-1.0); Calcium 8.2 mg/dL (8.5-10.1); Total Protein 6.8 g/dL (6.4-8.2)
[2021-05-26] MEDS ORDERED: METF-370 PO (07:33)
[2021-05-26] MEDS: SODIUM CHLORIDE 0.9% 1,000 ML IV SCH ×2 (07:42→21:15)
[2021-05-26 09:00] VITALS: BP 104/73
[2021-05-26] MEDS: cefTRIAXone 1GM/50ML D5W 50 ML IV SCH (09:24)
[2021-05-26] MEDS: PANTOPRAZOLE 40 MG/10 ML VIAL INJ IV SCH (09:25)
[2021-05-26] MEDS: ENOXAPARIN SOD 40 MG/0.4 ML SYRINGE SC SCH (09:26)
[2021-05-26] MEDS ORDERED: INSLANTI SC (09:37)
[2021-05-26] MEDS ORDERED: LEVOTHYROXINE SODIUM 100 MCG TAB PO ONE (12:00)
[2021-05-26 13:00] VITALS: BP 111/74
[2021-05-26] MEDS: metroNIDAZOLE 500MG/100ML 100 ML IV SCH ×2 (13:14→23:04)
[2021-05-26] MEDS: HYDROcodone-ACET 5/325MG TAB PO PRN (15:28)
[2021-05-26] MEDS ORDERED: diphenhdrAMINE HCL 50 MG/1 ML VL IV PRN (16:30)
[2021-05-26 17:00] VITALS: BP 101/70
[2021-05-26] MEDS: MORPHINE SULFATE 4 MG/ML SYR/VIAL IV PRN ×2 (18:20→23:50)
[2021-05-26 22:00] VITALS: BP 113/70
[2021-05-26] MEDS: INSULIN LANTUS (GLARGINE) 1 /0.01ml (100units/ml) SC SCH (23:01)
[2021-05-26] MEDS: ATORVASTATIN 20 MG TAB PO SCH (23:03)
[2021-05-26] MEDS: diphenhdrAMINE HCL 50 MG/1 ML VL IV PRN (23:04)
[2021-05-27] MEDS: ACCU-CHEK COMFORT CURVE STRIP VI SCH ×5 (00:09→23:31)
[2021-05-27] MEDS: InsuLIN REG 1unit/0.01ml Soln (100units/ml) SC SCH ×5 (00:12→23:30)
[2021-05-27 05:00] VITALS: BP 132/76
[2021-05-27] MEDS: MORPHINE SULFATE 4 MG/ML SYR/VIAL IV PRN ×2 (05:36→16:49)
[2021-05-27] MEDS: diphenhdrAMINE HCL 50 MG/1 ML VL IV PRN ×2 (06:21→20:44)
[2021-05-27] MEDS: LEVOTHYROXINE SODIUM 100 MCG TAB PO SCH (06:22)
[2021-05-27] MEDS: metroNIDAZOLE 500MG/100ML 100 ML IV SCH ×3 (06:22→21:41)
[2021-05-27] MEDS: INSULIN LANTUS (GLARGINE) 1 /0.01ml (100units/ml) SC SCH ×2 (06:44→22:00)
[2021-05-27] MEDS: SODIUM CHLORIDE 0.9% 1,000 ML IV SCH ×2 (07:27→17:30)
[2021-05-27 07:32] LABS: Basophils # (auto) 0 10 ^3/uL (0-0.2); Basophils % (auto) 0.5 % (0.0-2.0); Eosinophils # (auto) 0.2 10 ^3/uL (0-0.8); Eosinophils % (auto) 2.4 % (0.0-7.0); Hematocrit 37.5 % (36.0-46.0); Hemoglobin 13.1 g/dL (12.2-16.2); Lymphocytes # (auto) 2.3 10 ^3/uL (0.4-5.4); Lymphocytes % (auto) 35.7 % (10.0-50.0); Mean Corpuscular Hgb Conc. 34.8 g/dL (32.0-36.0); Monocytes # (auto) 0.7 10 ^3/uL (0-1.3); Monocytes % (auto) 10.3 % (0.0-12.0); Neutrophils # (auto) 3.3 10 ^3/uL (1.6-8.6); Neutrophils % (auto) 51.1 % (37.0-80.0); Red Blood Cells 4.08 10^6/uL (4.0-5.20); Red Cell Distribution Width 12.4 % (11.8-14.3); White Blood Cell 6.5 10^3/uL (4.4-10.8)
[2021-05-27 07:53] LABS: Potassium 4.1 mmol/L (3.5-5.1)
[2021-05-27 08:00] LABS: BUN/Creatinine Ratio 10.3; Bilirubin, Total 0.5 mg/dL (0.2-1.0); Calcium 8.6 mg/dL (8.5-10.1)
[2021-05-27] MEDS: PANTOPRAZOLE 40 MG/10 ML VIAL INJ IV SCH (09:31)
[2021-05-27] MEDS: LISINOPRIL 20 MG TAB PO SCH (09:32)
[2021-05-27] MEDS: ENOXAPARIN SOD 40 MG/0.4 ML SYRINGE SC SCH (09:32)
[2021-05-27] MEDS: cefTRIAXone 1GM/50ML D5W 50 ML IV SCH (09:32)
[2021-05-27 09:55] VITALS: BP 116/76
[2021-05-27 13:00] VITALS: BP 118/72
[2021-05-27 17:00] VITALS: BP 125/80
[2021-05-27] MEDS: HYDROcodone-ACET 5/325MG TAB PO PRN (20:44)
[2021-05-27] MEDS: ATORVASTATIN 20 MG TAB PO SCH (21:41)
[2021-05-27 22:00] VITALS: BP 116/79
[2021-05-28] MEDS: SODIUM CHLORIDE 0.9% 1,000 ML IV SCH (00:20)
[2021-05-28] MEDS: MORPHINE SULFATE 4 MG/ML SYR/VIAL IV PRN ×4 (02:29→23:25)
[2021-05-28] MEDS: InsuLIN REG 1unit/0.01ml Soln (100units/ml) SC SCH ×4 (06:00→23:23)
[2021-05-28 06:06] VITALS: BP 134/77
[2021-05-28] MEDS: metroNIDAZOLE 500MG/100ML 100 ML IV SCH ×3 (06:10→22:20)
[2021-05-28] MEDS: INSULIN LANTUS (GLARGINE) 1 /0.01ml (100units/ml) SC SCH ×2 (06:11→22:00)
[2021-05-28] MEDS: LEVOTHYROXINE SODIUM 100 MCG TAB PO SCH (06:11)
[2021-05-28] MEDS: ACCU-CHEK COMFORT CURVE STRIP VI SCH ×4 (06:11→23:23)
[2021-05-28 06:35] LABS: Basophils # (auto) 0 10 ^3/uL (0-0.2); Basophils % (auto) 0.6 % (0.0-2.0); Eosinophils # (auto) 0.1 10 ^3/uL (0-0.8); Eosinophils % (auto) 1.9 % (0.0-7.0); Hematocrit 40.5 % (36.0-46.0); Hemoglobin 14.3 g/dL (12.2-16.2); Lymphocytes # (auto) 3.4 10 ^3/uL (0.4-5.4); Lymphocytes % (auto) 45.6 % (10.0-50.0); Mean Corpuscular Hemoglobin 32.4 pg (28.0-32.0); Mean Corpuscular Hgb Conc. 35.4 g/dL (32.0-36.0); Mean Corpuscular Volume 91.5 fL (80.0-100.0); Monocytes # (auto) 0.9 10 ^3/uL (0-1.3); Monocytes % (auto) 11.5 % (0.0-12.0); Neutrophils % (auto) 40.4 % (37.0-80.0); Nucleated Red Blood Cells % 0.1 %; Red Blood Cells 4.43 10^6/uL (4.0-5.20); Red Cell Distribution Width 12.5 % (11.8-14.3); White Blood Cell 7.5 10^3/uL (4.4-10.8)
[2021-05-28 06:52] LABS: INR 1.12 (0.9-1.15); Partial Thromboplastin Time 27.3 sec (23.0-31.2); Potassium 3.9 mmol/L (3.5-5.1)
[2021-05-28 09:00] VITALS: BP 106/70
[2021-05-28] MEDS: LISINOPRIL 20 MG TAB PO SCH (10:00)
[2021-05-28] MEDS: ENOXAPARIN SOD 40 MG/0.4 ML SYRINGE SC SCH (10:00)
[2021-05-28] MEDS: PANTOPRAZOLE 40 MG/10 ML VIAL INJ IV SCH (10:00)
[2021-05-28 12:50] VITALS: BP 108/67
[2021-05-28] MEDS: ONDANSETRON HCL 4 MG/2 ML VIAL IV PRN (12:53)
[2021-05-28] MEDS: diphenhdrAMINE HCL 50 MG/1 ML VL IV PRN (14:49)
[2021-05-28 16:50] VITALS: BP 126/77
[2021-05-28] MEDS: cefTRIAXone 1GM/50ML D5W 50 ML IV SCH (19:03)
[2021-05-28 22:00] VITALS: BP 122/76
[2021-05-28] MEDS: ATORVASTATIN 20 MG TAB PO SCH (22:20)
[2021-05-29 05:00] VITALS: BP 102/65
[2021-05-29] MEDS: InsuLIN REG 1unit/0.01ml Soln (100units/ml) SC SCH ×4 (06:00→22:41)
[2021-05-29 06:21] LABS: Basophils # (auto) 0 10 ^3/uL (0-0.2); Basophils % (auto) 0.6 % (0.0-2.0); Eosinophils # (auto) 0.2 10 ^3/uL (0-0.8); Eosinophils % (auto) 2.7 % (0.0-7.0); Hematocrit 38.9 % (36.0-46.0); Hemoglobin 13.7 g/dL (12.2-16.2); Lymphocytes # (auto) 2.7 10 ^3/uL (0.4-5.4); Lymphocytes % (auto) 37.9 % (10.0-50.0); Mean Corpuscular Hemoglobin 32.1 pg (28.0-32.0); Mean Corpuscular Hgb Conc. 35.1 g/dL (32.0-36.0); Mean Corpuscular Volume 91.3 fL (80.0-100.0); Monocytes # (auto) 0.8 10 ^3/uL (0-1.3); Monocytes % (auto) 11.1 % (0.0-12.0); Neutrophils # (auto) 3.4 10 ^3/uL (1.6-8.6); Neutrophils % (auto) 47.7 % (37.0-80.0); Nucleated Red Blood Cells % 0.1 %; Red Blood Cells 4.26 10^6/uL (4.0-5.20); Red Cell Distribution Width 12.3 % (11.8-14.3); White Blood Cell 7.1 10^3/uL (4.4-10.8)
[2021-05-29] MEDS: LEVOTHYROXINE SODIUM 100 MCG TAB PO SCH (06:26)
[2021-05-29] MEDS: ACCU-CHEK COMFORT CURVE STRIP VI SCH ×4 (06:26→22:51)
[2021-05-29] MEDS: metroNIDAZOLE 500MG/100ML 100 ML IV SCH ×3 (06:26→21:13)
[2021-05-29] MEDS: INSULIN LANTUS (GLARGINE) 1 /0.01ml (100units/ml) SC SCH ×2 (06:27→22:43)
[2021-05-29 06:54] LABS: BUN/Creatinine Ratio 8.1; Bilirubin, Total 0.5 mg/dL (0.2-1.0); Calcium 8.7 mg/dL (8.5-10.1); Magnesium 1.9 mg/dL (1.6-2.6)
[2021-05-29 09:00] VITALS: BP 123/81
[2021-05-29] MEDS: LISINOPRIL 20 MG TAB PO SCH (10:00)
[2021-05-29] MEDS: ENOXAPARIN SOD 40 MG/0.4 ML SYRINGE SC SCH (10:00)
[2021-05-29] MEDS: ONDANSETRON HCL 4 MG/2 ML VIAL IV PRN ×2 (10:16→19:53)
[2021-05-29] MEDS: cefTRIAXone 1GM/50ML D5W 50 ML IV SCH (10:16)
[2021-05-29] MEDS: PANTOPRAZOLE 40 MG/10 ML VIAL INJ IV SCH (10:16)
[2021-05-29] MEDS: MORPHINE SULFATE 4 MG/ML SYR/VIAL IV PRN ×2 (10:17→19:53)
[2021-05-29] MEDS: diphenhdrAMINE HCL 50 MG/1 ML VL IV PRN ×2 (10:17→20:19)
[2021-05-29 13:00] VITALS: BP 107/71
[2021-05-29 17:00] VITALS: BP 128/69
[2021-05-29] MEDS: ATORVASTATIN 20 MG TAB PO SCH (21:13)
[2021-05-29 23:30] VITALS: BP 114/74
[2021-05-30] MEDS: HYDROcodone-ACET 5/325MG TAB PO PRN ×3 (05:20→20:06)
[2021-05-30] MEDS: ACCU-CHEK COMFORT CURVE STRIP VI SCH ×4 (05:20→22:46)
[2021-05-30] MEDS: metroNIDAZOLE 500MG/100ML 100 ML IV SCH ×3 (05:20→22:20)
[2021-05-30] MEDS: InsuLIN REG 1unit/0.01ml Soln (100units/ml) SC SCH ×4 (05:20→22:48)
[2021-05-30 05:52] VITALS: BP 100/63
[2021-05-30] MEDS: LEVOTHYROXINE SODIUM 100 MCG TAB PO SCH (06:35)
[2021-05-30] MEDS: INSULIN LANTUS (GLARGINE) 1 /0.01ml (100units/ml) SC SCH ×2 (06:36→22:49)
[2021-05-30] MEDS: cefTRIAXone 1GM/50ML D5W 50 ML IV SCH (08:31)
[2021-05-30] MEDS: LISINOPRIL 20 MG TAB PO SCH (08:32)
[2021-05-30] MEDS: MORPHINE SULFATE 4 MG/ML SYR/VIAL IV PRN ×3 (08:32→21:05)
[2021-05-30] MEDS: ENOXAPARIN SOD 40 MG/0.4 ML SYRINGE SC SCH (08:33)
[2021-05-30] MEDS: diphenhdrAMINE HCL 50 MG/1 ML VL IV PRN (08:33)
[2021-05-30] MEDS: PANTOPRAZOLE 40 MG/10 ML VIAL INJ IV SCH (08:33)
[2021-05-30] MEDS: ONDANSETRON HCL 4 MG/2 ML VIAL IV PRN ×2 (08:34→21:05)
[2021-05-30 09:00] VITALS: BP 194/100
[2021-05-30] MEDS ORDERED: BUPIVACAINE 0.25% INJ 50ML VIAL ONE (12:39)
[2021-05-30] MEDS ORDERED: LIDOCAINE W/ EPINEPHRINE 1% 20ML VIAL ONE (12:39)
[2021-05-30] MEDS ORDERED: fentaNYL CITRATE 100 MCG/2 ML VL ONE (12:56)
[2021-05-30] MEDS ORDERED: MIDAZOLAM HCL 2MG/2ML 2ml VIAL (1mg/ml) ONE (12:56)
[2021-05-30] MEDS ORDERED: ROCURONIUM 10MG/ML 10ML VIAL IV ONE (12:56)
[2021-05-30] MEDS ORDERED: PROPOFOL 10 MG/ML 20 ML IV ONE (13:22)
[2021-05-30] MEDS ORDERED: ONDANSETRON HCL 4 MG/2 ML VIAL IV ONE (14:09)
[2021-05-30] MEDS ORDERED: GLYCOPYRROLATE 0.2 MG/ML 1ML VIAL ONE (14:28)
[2021-05-30] MEDS ORDERED: ONDANSETRON HCL 4 MG/2 ML VIAL IV PRN (14:45)
[2021-05-30] MEDS ORDERED: MEPERIDINE HCL (25 MG/ML) 1ML VIAL IV PRN (14:55)
[2021-05-30] MEDS ORDERED: LACTATED RINGER'S 1,000 ML IV ONE (16:15)
[2021-05-30 17:00] VITALS: BP 119/75
[2021-05-30] MEDS: ATORVASTATIN 20 MG TAB PO SCH (21:04)
[2021-05-30 22:00] VITALS: BP 110/64
[2021-05-31] MEDS: HYDROcodone-ACET 5/325MG TAB PO PRN ×3 (00:06→09:14)
[2021-05-31] MEDS: MORPHINE SULFATE 4 MG/ML SYR/VIAL IV PRN ×5 (01:05→20:59)
[2021-05-31] MEDS: ONDANSETRON HCL 4 MG/2 ML VIAL IV PRN ×4 (01:05→20:59)
[2021-05-31 04:51] VITALS: BP 90/62
[2021-05-31] MEDS: metroNIDAZOLE 500MG/100ML 100 ML IV SCH ×3 (05:29→21:33)
[2021-05-31] MEDS: ACCU-CHEK COMFORT CURVE STRIP VI SCH ×4 (05:29→22:37)
[2021-05-31] MEDS: InsuLIN REG 1unit/0.01ml Soln (100units/ml) SC SCH ×4 (06:17→22:41)
[2021-05-31] MEDS: INSULIN LANTUS (GLARGINE) 1 /0.01ml (100units/ml) SC SCH ×2 (06:18→22:41)
[2021-05-31] MEDS: LEVOTHYROXINE SODIUM 100 MCG TAB PO SCH (06:18)
[2021-05-31 06:29] LABS: Basophils # (auto) 0 10 ^3/uL (0-0.2); Basophils % (auto) 0.4 % (0.0-2.0); Eosinophils # (auto) 0 10 ^3/uL (0-0.8); Eosinophils % (auto) 0.2 % (0.0-7.0); Hematocrit 39.1 % (36.0-46.0); Hemoglobin 13.4 g/dL (12.2-16.2); Lymphocytes # (auto) 1.6 10 ^3/uL (0.4-5.4); Lymphocytes % (auto) 19.1 % (10.0-50.0); Mean Corpuscular Hemoglobin 31.7 pg (28.0-32.0); Mean Corpuscular Hgb Conc. 34.3 g/dL (32.0-36.0); Mean Corpuscular Volume 92.2 fL (80.0-100.0); Monocytes # (auto) 0.8 10 ^3/uL (0-1.3); Neutrophils # (auto) 5.7 10 ^3/uL (1.6-8.6); Neutrophils % (auto) 70.3 % (37.0-80.0); Red Blood Cells 4.24 10^6/uL (4.0-5.20); Red Cell Distribution Width 12.5 % (11.8-14.3); White Blood Cell 8.2 10^3/uL (4.4-10.8)
[2021-05-31 09:04] VITALS: BP 94/63
[2021-05-31] MEDS: cefTRIAXone 1GM/50ML D5W 50 ML IV SCH (09:14)
[2021-05-31] MEDS: diphenhdrAMINE HCL 50 MG/1 ML VL IV PRN (09:14)
[2021-05-31] MEDS: PANTOPRAZOLE 40 MG/10 ML VIAL INJ IV SCH (09:15)
[2021-05-31] MEDS: ENOXAPARIN SOD 40 MG/0.4 ML SYRINGE SC SCH (09:15)
[2021-05-31] MEDS: LISINOPRIL 20 MG TAB PO SCH (10:00)
[2021-05-31 13:14] VITALS: BP 113/83
[2021-05-31 17:00] VITALS: BP 93/58
[2021-05-31] MEDS: KETOROLAC TROMETH 30 MG/ML 1ML VIAL IV SCH ×2 (18:32→23:53)
[2021-05-31] MEDS: METOCLOPRAMIDE HCL 5MG/ml INJ 2ml VIAL IV SCH ×2 (18:32→23:53)
[2021-05-31] MEDS: ATORVASTATIN 20 MG TAB PO SCH (21:32)
[2021-05-31 22:00] VITALS: BP 123/73
[2021-06-01] MEDS: MORPHINE SULFATE 4 MG/ML SYR/VIAL IV PRN (03:31)
[2021-06-01] MEDS: HYDROcodone-ACET 5/325MG TAB PO PRN (04:57)
[2021-06-01 05:00] VITALS: BP 96/59
[2021-06-01] MEDS: ACCU-CHEK COMFORT CURVE STRIP VI SCH ×3 (05:48→17:22)
[2021-06-01] MEDS: LEVOTHYROXINE SODIUM 100 MCG TAB PO SCH (05:54)
[2021-06-01] MEDS: InsuLIN REG 1unit/0.01ml Soln (100units/ml) SC SCH ×3 (05:54→17:21)
[2021-06-01] MEDS: METOCLOPRAMIDE HCL 5MG/ml INJ 2ml VIAL IV SCH ×3 (05:55→17:22)
[2021-06-01] MEDS: metroNIDAZOLE 500MG/100ML 100 ML IV SCH ×3 (05:55→21:12)
[2021-06-01] MEDS: KETOROLAC TROMETH 30 MG/ML 1ML VIAL IV SCH ×4 (05:55→19:52)
[2021-06-01] MEDS: INSULIN LANTUS (GLARGINE) 1 /0.01ml (100units/ml) SC SCH ×2 (05:55→22:00)
[2021-06-01 09:00] VITALS: BP 71/43
[2021-06-01] MEDS: cefTRIAXone 1GM/50ML D5W 50 ML IV SCH (09:11)
[2021-06-01] MEDS: LISINOPRIL 20 MG TAB PO SCH (09:12)
[2021-06-01] MEDS: PANTOPRAZOLE 40 MG/10 ML VIAL INJ IV SCH (09:12)
[2021-06-01] MEDS: ENOXAPARIN SOD 40 MG/0.4 ML SYRINGE SC SCH (09:12)
[2021-06-01] MEDS ORDERED: GASTROGRAFIN 120 ML SOL ONE (10:13)
[2021-06-01] MEDS ORDERED: ALBUMIN 25% 50 ML IV ONE (10:45)
[2021-06-01] MEDS ORDERED: SODIUM CHLORIDE 0.9% 2,000 ML IV ONE (10:45)
[2021-06-01 12:18] LABS: Albumin 3.4 g/dL (3.4-5.0); Calcium 9.4 mg/dL (8.5-10.1); Potassium 3.2 mmol/L (3.5-5.1)
[2021-06-01 12:21] LABS: BUN/Creatinine Ratio 4.5; Bilirubin, Total 0.9 mg/dL (0.2-1.0); Phosphorus 4.5 mg/dL (2.5-4.90); Total Protein 8.4 g/dL (6.4-8.2)
[2021-06-01 13:00] VITALS: BP 92/52
[2021-06-01] MEDS: ACETAMINOPHEN 500 MG TAB PO PRN ×2 (13:14→21:12)
[2021-06-01] MEDS: SODIUM CHLORIDE 0.9% 1,000 ML IV SCH ×3 (13:30→23:30)
[2021-06-01 16:47] VITALS: BP 79/52
[2021-06-01] MEDS ORDERED: SODIUM CHLORIDE 0.9% 1,000 ML IV ONE (17:00)
[2021-06-01] MEDS ORDERED: POTASSIUM CHLORIDE 40 MEQ, LIDOCAINE 1% (LOCAL ANESTH.) 4 ML in SODIUM CHL 0.9% 250 ML IV ONE (17:00)
[2021-06-01] MEDS: ATORVASTATIN 20 MG TAB PO SCH (21:12)
[2021-06-01 22:00] VITALS: BP 91/62
[2021-06-02] MEDS: METOCLOPRAMIDE HCL 5MG/ml INJ 2ml VIAL IV SCH ×5 (00:16→23:09)
[2021-06-02] MEDS: SODIUM CHLORIDE 0.9% 1,000 ML IV SCH ×3 (04:30→19:00)
[2021-06-02 05:00] VITALS: BP 111/67
[2021-06-02] MEDS: LEVOTHYROXINE SODIUM 100 MCG TAB PO SCH (05:40)
[2021-06-02] MEDS: ACETAMINOPHEN 500 MG TAB PO PRN (05:41)
[2021-06-02] MEDS: ACCU-CHEK COMFORT CURVE STRIP VI SCH ×5 (06:00→23:09)
[2021-06-02] MEDS: KETOROLAC TROMETH 30 MG/ML 1ML VIAL IV SCH ×2 (06:00→12:00)
[2021-06-02] MEDS: InsuLIN REG 1unit/0.01ml Soln (100units/ml) SC SCH ×5 (06:00→23:21)
[2021-06-02 06:10] LABS: Calcium 8.5 mg/dL (8.5-10.1); Potassium 3.4 mmol/L (3.5-5.1)
[2021-06-02 06:12] LABS: BUN/Creatinine Ratio 10.7
[2021-06-02] MEDS: INSULIN LANTUS (GLARGINE) 1 /0.01ml (100units/ml) SC SCH ×2 (06:46→21:43)
[2021-06-02] MEDS: metroNIDAZOLE 500MG/100ML 100 ML IV SCH ×3 (06:53→21:25)
[2021-06-02] MEDS: cefTRIAXone 1GM/50ML D5W 50 ML IV SCH (08:34)
[2021-06-02 09:00] VITALS: BP 116/67
[2021-06-02] MEDS: PANTOPRAZOLE 40 MG/10 ML VIAL INJ IV SCH (09:41)
[2021-06-02] MEDS: ENOXAPARIN SOD 40 MG/0.4 ML SYRINGE SC SCH (09:41)
[2021-06-02] MEDS: HYDROcodone-ACET 5/325MG TAB PO PRN ×3 (09:42→21:25)
[2021-06-02] MEDS ORDERED: FOLIC ACID 1 MG, MULTIPLE VITAMIN 10 ML, MAGNESIUM SULF SDV 50% 8 MEQ, THIAMINE INJ 100... INJ SCH ×5 (12:00)
[2021-06-02] MEDS ORDERED: POTASSIUM EFFERVESENT TAB 25 MEQ PO ONE (12:15)
[2021-06-02 13:00] VITALS: BP 106/65
[2021-06-02 16:39] VITALS: BP 114/71
[2021-06-02 19:06] LABS: Protein, Urine 12.7 mg/dL (0.0-11.9)
[2021-06-02] MEDS: ATORVASTATIN 20 MG TAB PO SCH (21:25)
[2021-06-02 22:23] VITALS: BP 143/82
[2021-06-03] MEDS: SODIUM CHLORIDE 0.9% 1,000 ML IV SCH ×2 (01:13→08:15)
[2021-06-03] MEDS: HYDROcodone-ACET 5/325MG TAB PO PRN ×2 (02:09→10:52)
[2021-06-03] MEDS: ACETAMINOPHEN 500 MG TAB PO PRN (04:48)
[2021-06-03 05:10] VITALS: BP 126/76
[2021-06-03 05:42] LABS: Basophils # (auto) 0 10 ^3/uL (0-0.2); Basophils % (auto) 0.4 % (0.0-2.0); Eosinophils # (auto) 0.1 10 ^3/uL (0-0.8); Eosinophils % (auto) 1.4 % (0.0-7.0); Hemoglobin 11.5 g/dL (12.2-16.2); Lymphocytes # (auto) 1.5 10 ^3/uL (0.4-5.4); Lymphocytes % (auto) 20.4 % (10.0-50.0); Mean Corpuscular Hemoglobin 31.7 pg (28.0-32.0); Mean Corpuscular Hgb Conc. 34.8 g/dL (32.0-36.0); Mean Corpuscular Volume 91.3 fL (80.0-100.0); Monocytes # (auto) 0.5 10 ^3/uL (0-1.3); Monocytes % (auto) 6.3 % (0.0-12.0); Neutrophils # (auto) 5.2 10 ^3/uL (1.6-8.6); Neutrophils % (auto) 71.5 % (37.0-80.0); Red Blood Cells 3.61 10^6/uL (4.0-5.20); Red Cell Distribution Width 12.7 % (11.8-14.3); White Blood Cell 7.3 10^3/uL (4.4-10.8)
[2021-06-03 05:45] LABS: Calcium 8.3 mg/dL (8.5-10.1); Magnesium 2.2 mg/dL (1.6-2.6); Potassium 3.3 mmol/L (3.5-5.1)
[2021-06-03] MEDS: metroNIDAZOLE 500MG/100ML 100 ML IV SCH ×2 (05:48→14:00)
[2021-06-03] MEDS: ACCU-CHEK COMFORT CURVE STRIP VI SCH ×2 (05:48→11:57)
[2021-06-03] MEDS: METOCLOPRAMIDE HCL 5MG/ml INJ 2ml VIAL IV SCH ×2 (05:48→12:00)
[2021-06-03] MEDS: LEVOTHYROXINE SODIUM 100 MCG TAB PO SCH (05:49)
[2021-06-03] MEDS: InsuLIN REG 1unit/0.01ml Soln (100units/ml) SC SCH ×2 (06:00→12:07)
[2021-06-03] MEDS: INSULIN LANTUS (GLARGINE) 1 /0.01ml (100units/ml) SC SCH (06:11)
[2021-06-03 09:00] VITALS: BP 125/77
[2021-06-03] MEDS: cefTRIAXone 1GM/50ML D5W 50 ML IV SCH (09:00)
[2021-06-03] MEDS: PANTOPRAZOLE 40 MG/10 ML VIAL INJ IV SCH (10:36)
[2021-06-03] MEDS: ENOXAPARIN SOD 40 MG/0.4 ML SYRINGE SC SCH (10:37)
[2021-06-03] MEDS ORDERED: LEVO500T31 PO (10:38)
[2021-06-03] MEDS ORDERED: METR500T PO (10:38)
[2021-06-03] MEDS ORDERED: POTASSIUM CHL 20 Meq TABLET PO ONE (10:45)
[2021-06-03 13:00] VITALS: BP 117/87
[2021-06-03 13:18] VITALS: BP 124/74
== END 2021-06-03 14:10 | disposition home or self-care (01) | DRG 417 ==
LOC: ER 12:39 → OVERFLOW 15:06 → WEST WING 19:47
PROVIDERS: ADMIT Family Medicine; ATTEND Internal Medicine
PROC: 0FT44ZZ Resection of Gallbladder, Percutaneous Endoscopic Approach (ICD-10-PCS; principal; 2021-05-30 13:19)
DX: K81.0 Acute cholecystitis (principal); N17.0 Acute kidney failure with tubular necrosis; E87.1 Hypo-osmolality and hyponatremia; R65.10 Systemic inflammatory response syndrome (SIRS) of non-infectious origin without acute organ dysfunction; N18.9 Chronic kidney disease, unspecified; E78.5 Hyperlipidemia, unspecified; E03.9 Hypothyroidism, unspecified; E11.22 Type 2 diabetes mellitus with diabetic chronic kidney disease; Z20.822 Contact with and (suspected) exposure to COVID-19; D17.71 Benign lipomatous neoplasm of kidney; E11.65 Type 2 diabetes mellitus with hyperglycemia; E27.8 Other specified disorders of adrenal gland; E66.9 Obesity, unspecified; Z68.27 Body mass index [BMI] 27.0-27.9, adult; E87.6 Hypokalemia; I12.9 Hypertensive chronic kidney disease with stage 1 through stage 4 chronic kidney disease, or unspecified chronic kidney disease; Z82.49 Family history of ischemic heart disease and other diseases of the circulatory system; Z83.3 Family history of diabetes mellitus; Z90.710 Acquired absence of both cervix and uterus; Z79.899 Other long term (current) drug therapy; Z79.4 Long term (current) use of insulin
CPT/HCPCS: 36415; 71046; 74022; 74176; 74250; 76700; 80048; 80053; 81001; 82150; 82247; 82570; 82962; 83036; 83605; 83690; 83735; 84100; 84156; 84300; 84436; 84443; 84480; 84484; 85025; 85049; 85610; 85730; 86850; 86900; 86901; 87040; 87426; 93005; 93306; 96361; 96374; 96375; C9113; G0378; J0696; J1815; J1885; J2001; J2250; J2405; J2704; J3490

== ENCOUNTER 2021-06-15 12:58 | Emergency (ER) | payer BC ==
[~2021-06-15] VITALS: Ht 167.6 cm; Wt 72.6 kg
[~2021-06-15 12:58] MED LIST changes: +EMPA1TAB PO; +GLIP5TAB12 PO; +INSLANTI SC; +LEVO500T31 PO; -MELA3TAB27 PO; +METF-370 PO; -METF-372 PO; +METR500T PO; -SITA100T7 PO
[2021-06-15] MEDS ORDERED: methylPREDNISolone SOD SUCC 125 MG/2 ML VL IM ONE (13:30)
[2021-06-15 14:21] LABS: Basophils # (auto) 0.1 10 ^3/uL (0-0.2); Basophils % (auto) 0.7 % (0.0-2.0); Eosinophils # (auto) 0 10 ^3/uL (0-0.8); Eosinophils % (auto) 0.3 % (0.0-7.0); Hematocrit 40.4 % (36.0-46.0); Hemoglobin 13.3 g/dL (12.2-16.2); Lymphocytes # (auto) 1.9 10 ^3/uL (0.4-5.4); Lymphocytes % (auto) 16.1 % (10.0-50.0); Mean Corpuscular Hgb Conc. 33.1 g/dL (32.0-36.0); Mean Corpuscular Volume 90.8 fL (80.0-100.0); Monocytes # (auto) 0.8 10 ^3/uL (0-1.3); Monocytes % (auto) 6.4 % (0.0-12.0); Neutrophils # (auto) 9.2 10 ^3/uL (1.6-8.6); Neutrophils % (auto) 76.5 % (37.0-80.0); Red Blood Cells 4.45 10^6/uL (4.0-5.20); Red Cell Distribution Width 12.7 % (11.8-14.3)
[2021-06-15 14:22] LABS: Albumin 3.5 g/dL (3.4-5.0); Potassium 4.8 mmol/L (3.5-5.1)
[2021-06-15 14:26] LABS: BUN/Creatinine Ratio 19.3; Bilirubin, Total 0.3 mg/dL (0.2-1.0); Total Protein 8.3 g/dL (6.4-8.2)
[2021-06-15 14:50] LABS: Urine Bacteria NONE SEEN /hpf (None Seen); Urine Blood 3+ /uL (Negative); Urine Specific Gravity 1.017 (1.001-1.035); Urine WBC 18 /hpf (0 - 5)
[2021-06-15 15:03] VITALS: BP 115/73
== END 2021-06-15 15:26 | disposition home or self-care (01) ==
LOC: ER 12:58
DX: R21 Rash and other nonspecific skin eruption (principal); E11.9 Type 2 diabetes mellitus without complications; E78.5 Hyperlipidemia, unspecified; I10 Essential (primary) hypertension; M19.90 Unspecified osteoarthritis, unspecified site; Z90.49 Acquired absence of other specified parts of digestive tract; Z90.710 Acquired absence of both cervix and uterus; Z88.6 Allergy status to analgesic agent; Z79.899 Other long term (current) drug therapy
CPT/HCPCS: 36415; 80053; 81001; 85025; 96372; 99283; J2930

== ENCOUNTER → 2022-01-21 | Outpatient (CLI) | payer BC ==
[2022-01-21 11:52] LABS: INR 1.12 (0.9-1.15)
[2022-01-21 13:32] LABS: Basophils # (auto) 0.1 10 ^3/uL (0-0.2); Basophils % (auto) 1.3 % (0.0-2.0); Eosinophils # (auto) 0.1 10 ^3/uL (0-0.8); Eosinophils % (auto) 1.7 % (0.0-7.0); Hematocrit 43.2 % (36.0-46.0); Hemoglobin 14.5 g/dL (12.2-16.2); Lymphocytes # (auto) 2.3 10 ^3/uL (0.4-5.4); Lymphocytes % (auto) 41.9 % (10.0-50.0); Mean Corpuscular Hemoglobin 32.5 pg (28.0-32.0); Mean Corpuscular Hgb Conc. 33.5 g/dL (32.0-36.0); Mean Corpuscular Volume 96.9 fL (80.0-100.0); Monocytes # (auto) 0.4 10 ^3/uL (0-1.3); Monocytes % (auto) 7.6 % (0.0-12.0); Neutrophils # (auto) 2.6 10 ^3/uL (1.6-8.6); Neutrophils % (auto) 47.5 % (37.0-80.0); Nucleated Red Blood Cells % 0.1 %; Red Blood Cells 4.46 10^6/uL (4.0-5.20); Red Cell Distribution Width 13.1 % (11.8-14.3); White Blood Cell 5.4 10^3/uL (4.4-10.8)
[2022-01-21 14:18] LABS: Potassium 3.7 mmol/L (3.5-5.1)
[2022-01-21 14:26] LABS: Albumin 3.8 g/dL (3.4-5.0); BUN/Creatinine Ratio 5.9; Bilirubin, Total 0.5 mg/dL (0.2-1.0); Calcium 8.9 mg/dL (8.5-10.1); Total Protein 8.3 g/dL (6.4-8.2)
[2022-01-21 16:14] LABS: Hepatitis C Antibody Negative (Negative)
== END | disposition home or self-care (01) ==
LOC: LAB 09:44
PROVIDERS: ATTEND Internal Medicine Gastroenterology
DX: R94.5 Abnormal results of liver function studies (principal)
CPT/HCPCS: 36415; 80053; 82105; 82728; 85025; 85610; 86803; 87340

== ENCOUNTER 2022-03-19 21:18 | Inpatient (IN) | payer BC ==
[~2022-03-19] VITALS: Ht 167.6 cm; Wt 74.0 kg
[2022-03-19] MEDS ORDERED: SODIUM CHLORIDE 0.9% 1,000 ML IV ONE (21:45)
[2022-03-19] MEDS ORDERED: NITROGLYCERIN 2.5 MG CAP PO ONE (21:45)
[2022-03-19] MEDS ORDERED: ASPirin 325 MG TAB PO ONE (21:45)
[2022-03-19 22:15] LABS: Basophils # (auto) 0.1 10 ^3/uL (0-0.2); Basophils % (auto) 0.8 % (0.0-2.0); Eosinophils # (auto) 0.1 10 ^3/uL (0-0.8); Eosinophils % (auto) 0.9 % (0.0-7.0); Hemoglobin 15.3 g/dL (12.2-16.2); Lymphocytes # (auto) 3.1 10 ^3/uL (0.4-5.4); Lymphocytes % (auto) 37.8 % (10.0-50.0); Mean Corpuscular Volume 94.2 fL (80.0-100.0); Monocytes # (auto) 0.6 10 ^3/uL (0-1.3); Monocytes % (auto) 6.8 % (0.0-12.0); Neutrophils # (auto) 4.4 10 ^3/uL (1.6-8.6); Neutrophils % (auto) 53.7 % (37.0-80.0); Nucleated Red Blood Cells % 0.1 %; Red Blood Cells 4.78 10^6/uL (4.0-5.20); Red Cell Distribution Width 13.3 % (11.8-14.3); White Blood Cell 8.2 10^3/uL (4.4-10.8)
[2022-03-19 22:36] LABS: Potassium 3.8 mmol/L (3.5-5.1)
[2022-03-19] MEDS ORDERED: DexAMETHasone SOD PHOS 10MG/1ML VIAL INJ IV ONE (22:45)
[2022-03-19 22:46] LABS: Albumin 3.3 g/dL (3.4-5.0); BUN/Creatinine Ratio 5.7; Bilirubin, Total 0.8 mg/dL (0.2-1.0); Calcium 9.1 mg/dL (8.5-10.1); Total Protein 7.2 g/dL (6.4-8.2)
[2022-03-19 23:26] LABS: INR 1.1 (0.9-1.15)
[2022-03-19] MEDS ORDERED: TICAGRELOR 90 MG TAB PO ONE (23:45)
[2022-03-19] MEDS ORDERED: HEPARIN DRIP/D5W 100UNITS/ML 250 ML IV SCH (23:45)
[2022-03-20] VITALS (8 sets, daily range): BP systolic 101–132; BP diastolic 56–75
[2022-03-20] MEDS ORDERED: NITROGLYCERIN 0.4 MG SL TAB SL ONE
[2022-03-20] MEDS ORDERED: ONDANSETRON HCL 4 MG/2 ML VIAL IV ONE
[2022-03-20] MEDS: SODIUM CHLOR 0.9% PF (SALINE LOCK) 10ML VIAL/SYR IV SCH ×4 (06:02→21:14)
[2022-03-20] MEDS ORDERED: NITROGLYCERIN 0.4 MG SL TAB SL PRN (06:45)
[2022-03-20] MEDS ORDERED: TEMAZEPAM 15 MG CAP PO PRN (06:45)
[2022-03-20] MEDS ORDERED: ONDANSETRON HCL 4 MG/2 ML VIAL IV PRN (06:45)
[2022-03-20] MEDS ORDERED: DEXTROSE (50%) 50ML SYRG IV PRN (06:45)
[2022-03-20] MEDS ORDERED: MORPHINE SULFATE INJECTION 2 MG/ML SYRG IV PRN ×2 (06:45→08:15)
[2022-03-20] MEDS: LEVOTHYROXINE SODIUM 100 MCG TAB PO SCH (08:36)
[2022-03-20] MEDS: SODIUM CHLORIDE 0.9% 1,000 ML IV SCH ×2 (08:37→20:18)
[2022-03-20] MEDS ORDERED: ASPirin 81 mg TAB PO SCH (10:00)
[2022-03-20] MEDS: LISINOPRIL 20 MG TAB PO SCH (10:00)
[2022-03-20] MEDS: PANTOPRAZOLE 40 MG TAB PO SCH (10:14)
[2022-03-20 10:28] LABS: Urine Bacteria NONE SEEN /hpf (None Seen); Urine Blood TRACE /uL (Negative); Urine Specific Gravity 1.022 (1.001-1.035); Urine WBC 1 /hpf (0 - 5)
[2022-03-20] MEDS: ACCU-CHEK COMFORT CURVE STRIP VI SCH ×3 (12:22→23:49)
[2022-03-20] MEDS: InsuLIN REG 1unit/0.01ml Soln (100units/ml) SC SCH ×3 (12:25→23:55)
[2022-03-20] MEDS ORDERED: PIPERACILLIN-TAZO 4.5GM 100 ML IV SCH (14:00)
[2022-03-20] MEDS ORDERED: VANCOMYCIN 1GM/250ML 250 ML IV ONE (14:30)
[2022-03-20] MEDS ORDERED: VANCOMYCIN PER PHARMACY 0 MG IV SCH (14:30)
[2022-03-20] MEDS ORDERED: IODIXANOL 320MG/ML 100ML BTL IV ONE (14:43)
[2022-03-20] MEDS ORDERED: LIDOCAINE 2%HCL (LOCAL ANESTH.) INJ 10ml MDV ONE (14:43)
[2022-03-20 16:00] LABS: Alcohol, Urine < 3.0 mg/dL (0-10); Amphetamine Screen, Urine NEGATIVE (NEGATIVE); Barbiturate Scree,Urine NEGATIVE (NEGATIVE); Benzodiazephine Screen, Urine NEGATIVE (NEGATIVE); Cannabinoid Screen, Urine NEGATIVE (NEGATIVE); Cocaine Screen, Urine NEGATIVE (NEGATIVE); Opiate Scree,Urine NEGATIVE (NEGATIVE); Phencyclidine Screen, Urine NEGATIVE (NEGATIVE)
[2022-03-20] MEDS ORDERED: ANGIOMAX 250 MG VIAL IV ONE (16:25)
[2022-03-20] MEDS ORDERED: VERAPAMIL 2.5MG/ML INJ 2ML VIAL IV ONE (16:25)
[2022-03-20] MEDS ORDERED: HEPARIN SODIUM (PORCINE) 5000 UNITS/ML 1ML VIAL ONE (16:25)
[2022-03-20] MEDS ORDERED: SODIUM CHL 0.9% 0 ML ONE (16:26)
[2022-03-20] MEDS ORDERED: fentaNYL CITRATE 100 MCG/2 ML VL ONE (16:26)
[2022-03-20] MEDS ORDERED: MIDAZOLAM HCL 2MG/2ML 2ml VIAL (1mg/ml) ONE (16:26)
[2022-03-20] MEDS: glipiZIDE 5 MG TAB PO SCH (18:38)
[2022-03-20] MEDS: HYDROcodone-ACET 5/325MG TAB PO PRN (20:22)
[2022-03-20] MEDS: diphenhdrAMINE HCL 50 MG/1 ML VL IV PRN (20:22)
[2022-03-20] MEDS: CEFEPIME 1GM/ 50ML 50 ML IV SCH (21:14)
[2022-03-20] MEDS: INSULIN LANTUS (GLARGINE) 1 /0.01ml (100units/ml) SC SCH (21:32)
[2022-03-20] MEDS ORDERED: ATORVASTATIN 20 MG TAB PO SCH (22:00)
[2022-03-21] MEDS: VANCOMYCIN 1GM/250ML 250 ML IV SCH ×2 (01:50→14:09)
[2022-03-21 05:00] VITALS: BP 100/63
[2022-03-21 06:04] LABS: Basophils # (auto) 0 10 ^3/uL (0-0.2); Basophils % (auto) 0.1 % (0.0-2.0); Eosinophils # (auto) 0 10 ^3/uL (0-0.8); Hematocrit 35.2 % (36.0-46.0); Hemoglobin 12.1 g/dL (12.2-16.2); Lymphocytes # (auto) 1.6 10 ^3/uL (0.4-5.4); Lymphocytes % (auto) 15.7 % (10.0-50.0); Mean Corpuscular Hemoglobin 32.6 pg (28.0-32.0); Mean Corpuscular Hgb Conc. 34.3 g/dL (32.0-36.0); Mean Corpuscular Volume 94.9 fL (80.0-100.0); Monocytes # (auto) 0.6 10 ^3/uL (0-1.3); Monocytes % (auto) 5.7 % (0.0-12.0); Neutrophils # (auto) 8.1 10 ^3/uL (1.6-8.6); Neutrophils % (auto) 78.5 % (37.0-80.0); Red Blood Cells 3.71 10^6/uL (4.0-5.20); Red Cell Distribution Width 13.3 % (11.8-14.3); White Blood Cell 10.3 10^3/uL (4.4-10.8)
[2022-03-21] MEDS: ACCU-CHEK COMFORT CURVE STRIP VI SCH ×4 (06:08→23:41)
[2022-03-21] MEDS: SODIUM CHLOR 0.9% PF (SALINE LOCK) 10ML VIAL/SYR IV SCH ×6 (06:08→20:57)
[2022-03-21 06:11] LABS: Albumin 2.5 g/dL (3.4-5.0); Calcium 8.4 mg/dL (8.5-10.1); Potassium 3.9 mmol/L (3.5-5.1)
[2022-03-21] MEDS: InsuLIN REG 1unit/0.01ml Soln (100units/ml) SC SCH ×4 (06:11→23:43)
[2022-03-21] MEDS: LEVOTHYROXINE SODIUM 100 MCG TAB PO SCH (06:12)
[2022-03-21] MEDS: glipiZIDE 5 MG TAB PO SCH ×2 (06:12→18:32)
[2022-03-21 06:13] LABS: BUN/Creatinine Ratio 12.5
[2022-03-21 06:16] LABS: Bilirubin, Total 0.5 mg/dL (0.2-1.0); Total Protein 5.9 g/dL (6.4-8.2)
[2022-03-21] MEDS: diphenhdrAMINE HCL 50 MG/1 ML VL IV PRN ×4 (06:20→21:23)
[2022-03-21] MEDS: SODIUM CHLORIDE 0.9% 1,000 ML IV SCH ×4 (06:22→22:45)
[2022-03-21] MEDS: CEFEPIME 1GM/ 50ML 50 ML IV SCH ×3 (06:22→20:56)
[2022-03-21 09:00] VITALS: BP 102/59
[2022-03-21] MEDS: PANTOPRAZOLE 40 MG TAB PO SCH (09:51)
[2022-03-21] MEDS: LISINOPRIL 20 MG TAB PO SCH (09:51)
[2022-03-21] MEDS: HYDROcodone-ACET 5/325MG TAB PO PRN (09:52)
[2022-03-21] MEDS: INSULIN LANTUS (GLARGINE) 1 /0.01ml (100units/ml) SC SCH ×2 (09:55→21:21)
[2022-03-21] MEDS ORDERED: ASPirin 81 mg TAB PO SCH (10:00)
[2022-03-21] MEDS: methylPREDNISolone SOD SUCC 40 MG/ML VL IV SCH ×2 (11:12→20:57)
[2022-03-21 13:00] VITALS: BP 115/65
[2022-03-21 16:19] LABS: Hepatitis A Ab IgM Negative; Hepatitis B Core IgM Negative; Hepatitis C Antibody Negative (Negative)
[2022-03-21 17:00] VITALS: BP 98/58
[2022-03-21 22:00] VITALS: BP 106/70
[2022-03-22] MEDS: VANCOMYCIN 1GM/250ML 250 ML IV SCH ×2 (01:56→13:55)
[2022-03-22 05:00] VITALS: BP 92/55
[2022-03-22 05:21] LABS: Basophils # (auto) 0 10 ^3/uL (0-0.2); Basophils % (auto) 0.2 % (0.0-2.0); Eosinophils # (auto) 0 10 ^3/uL (0-0.8); Hematocrit 36.8 % (36.0-46.0); Hemoglobin 12.6 g/dL (12.2-16.2); Lymphocytes # (auto) 1.3 10 ^3/uL (0.4-5.4); Lymphocytes % (auto) 14.5 % (10.0-50.0); Mean Corpuscular Hemoglobin 32.5 pg (28.0-32.0); Mean Corpuscular Hgb Conc. 34.2 g/dL (32.0-36.0); Monocytes # (auto) 0.3 10 ^3/uL (0-1.3); Monocytes % (auto) 3.3 % (0.0-12.0); Neutrophils # (auto) 7.6 10 ^3/uL (1.6-8.6); Red Blood Cells 3.88 10^6/uL (4.0-5.20); Red Cell Distribution Width 13.4 % (11.8-14.3); White Blood Cell 9.3 10^3/uL (4.4-10.8)
[2022-03-22] MEDS: SODIUM CHLOR 0.9% PF (SALINE LOCK) 10ML VIAL/SYR IV SCH ×4 (06:01→13:57)
[2022-03-22] MEDS: ACCU-CHEK COMFORT CURVE STRIP VI SCH ×2 (06:01→11:42)
[2022-03-22] MEDS: InsuLIN REG 1unit/0.01ml Soln (100units/ml) SC SCH ×2 (06:03→11:43)
[2022-03-22] MEDS: glipiZIDE 5 MG TAB PO SCH (06:04)
[2022-03-22] MEDS: LEVOTHYROXINE SODIUM 100 MCG TAB PO SCH (06:04)
[2022-03-22] MEDS: CEFEPIME 1GM/ 50ML 50 ML IV SCH ×2 (06:05→13:56)
[2022-03-22 09:00] VITALS: BP 106/63
[2022-03-22] MEDS: methylPREDNISolone SOD SUCC 40 MG/ML VL IV SCH (09:21)
[2022-03-22] MEDS: PANTOPRAZOLE 40 MG TAB PO SCH (09:21)
[2022-03-22] MEDS: INSULIN LANTUS (GLARGINE) 1 /0.01ml (100units/ml) SC SCH (09:22)
[2022-03-22] MEDS: LISINOPRIL 20 MG TAB PO SCH (09:31)
[2022-03-22] MEDS: SODIUM CHLORIDE 0.9% 1,000 ML IV SCH (11:48)
[2022-03-22] MEDS ORDERED: METH4PAK PO (12:13)
[2022-03-22] MEDS ORDERED: LEVO-28 PO (12:13)
[2022-03-22 12:49] VITALS: BP 106/63
[2022-03-22 13:00] VITALS: BP 116/68
== END 2022-03-22 15:18 | disposition home or self-care (01) | DRG 282 ==
LOC: ER 21:18 → TELE 03-20 06:43 → EAST 03-20 15:56 → TELE-EAST 03-20 18:18 → EAST 03-21 17:41
PROVIDERS: ADMIT Nurse Practitioner; ATTEND Internal Medicine
PROC: 4A023N7 Measurement of Cardiac Sampling and Pressure, Left Heart, Percutaneous Approach (ICD-10-PCS; principal; 2022-03-20)
PROC: B211YZZ Fluoroscopy of Multiple Coronary Arteries using Other Contrast (ICD-10-PCS; 2022-03-20)
PROC: B215YZZ Fluoroscopy of Left Heart using Other Contrast (ICD-10-PCS; 2022-03-20)
DX: I21.A1 Myocardial infarction type 2 (principal); E78.5 Hyperlipidemia, unspecified; I10 Essential (primary) hypertension; E03.9 Hypothyroidism, unspecified; R21 Rash and other nonspecific skin eruption; D69.2 Other nonthrombocytopenic purpura; Z90.49 Acquired absence of other specified parts of digestive tract; Z63.4 Disappearance and death of family member; Z82.49 Family history of ischemic heart disease and other diseases of the circulatory system; Z83.3 Family history of diabetes mellitus; Z86.16 Personal history of COVID-19; Z90.710 Acquired absence of both cervix and uterus; Z20.822 Contact with and (suspected) exposure to COVID-19
CPT/HCPCS: 36415; 71045; 80053; 80061; 80074; 80202; 80307; 81001; 82565; 82784; 82962; 83036; 83516; 83735; 84484; 85025; 85610; 85652; 85730; 86141; 86225; 86235; 86664; 86703; 87040; 87070; 87880; 93005; 93306; 93458; 96361; 96365; 96367; 96375; 99152; 99291; G0378; J1100; J1815; J2001; J2250; J2405; J2543; Q9967

== ENCOUNTER → 2022-05-22 | Outpatient (CLI) | payer BC ==
[~2022-05-22] MED LIST changes: +LEVO-28 PO; +METH4PAK PO
[2022-05-22 08:57] LABS: Albumin 3.4 g/dL (3.4-5.0); Potassium 3.4 mmol/L (3.5-5.1)
[2022-05-22 09:02] LABS: BUN/Creatinine Ratio 8.2; Bilirubin, Total 0.8 mg/dL (0.2-1.0); Total Protein 7.7 g/dL (6.4-8.2)
== END | disposition home or self-care (01) ==
LOC: LAB 07:35
PROVIDERS: ATTEND Internal Medicine Gastroenterology
DX: R94.5 Abnormal results of liver function studies (principal)
CPT/HCPCS: 36415; 80053; 80061; 83036; 86038

== ENCOUNTER → 2022-06-19 | Outpatient (CLI) | payer BC ==
[2022-06-19 08:22] LABS: Urine Bacteria MOD /hpf (None Seen); Urine Blood 2+ /uL (Negative); Urine Specific Gravity 1.017 (1.001-1.035); Urine WBC 463 /hpf (0 - 5); Urine WBC Clumps PRESENT /hpf (None Seen)
[2022-06-19 08:39] LABS: Protein, Urine 15.3 mg/dL (0.0-11.9)
== END | disposition home or self-care (01) ==
LOC: LAB 07:14
PROVIDERS: ATTEND Internal Medicine Rheumatology
DX: Z11.1 Encounter for screening for respiratory tuberculosis (principal); L95.9 Vasculitis limited to the skin, unspecified; R94.5 Abnormal results of liver function studies
CPT/HCPCS: 36415; 81001; 82570; 84156; 85652; 86141; 86160; 86200; 86256; 86431; 86671; 86704

== ENCOUNTER → 2023-04-14 | Outpatient (CLI) | payer BC ==
[2023-04-14 08:18] LABS: Basophils # (auto) 0.1 10 ^3/uL (0-0.2); Basophils % (auto) 1.4 % (0.0-2.0); Eosinophils # (auto) 0.2 10 ^3/uL (0-0.8); Eosinophils % (auto) 1.7 % (0.0-7.0); Hematocrit 39.1 % (36.0-46.0); Hemoglobin 13.1 g/dL (12.2-16.2); Lymphocytes % (auto) 20.6 % (10.0-50.0); Mean Corpuscular Hemoglobin 31.8 pg (28.0-32.0); Mean Corpuscular Hgb Conc. 33.4 g/dL (32.0-36.0); Monocytes # (auto) 1.1 10 ^3/uL (0-1.3); Monocytes % (auto) 11.1 % (0.0-12.0); Neutrophils # (auto) 6.2 10 ^3/uL (1.6-8.6); Neutrophils % (auto) 65.2 % (37.0-80.0); Nucleated Red Blood Cells % 0.1 %; Red Blood Cells 4.12 10^6/uL (4.0-5.20); Red Cell Distribution Width 13.8 % (11.8-14.3); White Blood Cell 9.6 10^3/uL (4.4-10.8)
[2023-04-14 09:01] LABS: Albumin 1.9 g/dL (3.4-5.0); Calcium 8.2 mg/dL (8.5-10.1); Potassium 3.4 mmol/L (3.5-5.1)
[2023-04-14 09:06] LABS: BUN/Creatinine Ratio 5.6 (10.0-20.0); Bilirubin, Total 1.8 mg/dL (0.2-1.0); Total Protein 8.3 g/dL (6.4-8.2)
== END | disposition home or self-care (01) ==
LOC: LAB 07:35
PROVIDERS: ATTEND Nurse Practitioner Family
DX: E11.42 Type 2 diabetes mellitus with diabetic polyneuropathy (principal); I10 Essential (primary) hypertension; E03.9 Hypothyroidism, unspecified
CPT/HCPCS: 36415; 80053; 80061; 82043; 83036; 84439; 84443; 85025

== ENCOUNTER 2023-05-13 17:09 | Emergency (ER) | payer BC ==
[~2023-05-13] VITALS: Ht 167.6 cm; Wt 71.9 kg
[~2023-05-13 17:09] MED LIST changes: -LEVO-28 PO; +LEVO500T91 PO; -LISI20TA28 PO; +LISI20TA56 PO
[2023-05-13] MEDS ORDERED: SODIUM CHLORIDE 0.9% 1,000 ML IV ONE ×2 (17:45→20:00)
[2023-05-13] MEDS ORDERED: ONDANSETRON HCL 4 MG/2 ML VIAL IV ONE (17:45)
[2023-05-13 18:04] LABS: Basophils # (auto) 0 10 ^3/uL (0-0.2); Basophils % (auto) 0.4 % (0.0-2.0); Eosinophils # (auto) 0 10 ^3/uL (0-0.8); Eosinophils % (auto) 0.2 % (0.0-7.0); Hemoglobin 12.4 g/dL (12.2-16.2); Lymphocytes # (auto) 2.3 10 ^3/uL (0.4-5.4); Lymphocytes % (auto) 25.2 % (10.0-50.0); Mean Corpuscular Hemoglobin 32.4 pg (28.0-32.0); Mean Corpuscular Hgb Conc. 33.6 g/dL (32.0-36.0); Mean Corpuscular Volume 96.5 fL (80.0-100.0); Monocytes # (auto) 1.2 10 ^3/uL (0-1.3); Monocytes % (auto) 13.4 % (0.0-12.0); Neutrophils # (auto) 5.6 10 ^3/uL (1.6-8.6); Neutrophils % (auto) 60.8 % (37.0-80.0); Red Blood Cells 3.84 10^6/uL (4.0-5.20); Red Cell Distribution Width 14.2 % (11.8-14.3); White Blood Cell 9.3 10^3/uL (4.4-10.8)
[2023-05-13 18:15] LABS: Albumin 2.3 g/dL (3.4-5.0); Calcium 8.1 mg/dL (8.5-10.1)
[2023-05-13 18:18] LABS: BUN/Creatinine Ratio 3.3 (10.0-20.0); Bilirubin, Total 0.5 mg/dL (0.2-1.0); Total Protein 8.2 g/dL (6.4-8.2)
[2023-05-13] MEDS ORDERED: InsuLIN REG 1unit/0.01ml Soln (100units/ml) IV ONE (20:00)
[2023-05-14] MEDS ORDERED: ACETAMINOPHEN/CODEINE#3 (300/30mg) TAB PO ONE (00:30)
[2023-05-14 00:57] VITALS: BP 125/70
[2023-05-14] MEDS ORDERED: NITR-87 PO (01:12)
[2023-05-14] MEDS ORDERED: ZOFR4T PO (01:12)
== END 2023-05-14 01:25 | disposition home or self-care (01) ==
LOC: ER 17:09
DX: N39.0 Urinary tract infection, site not specified (principal); E11.9 Type 2 diabetes mellitus without complications; E78.5 Hyperlipidemia, unspecified; I10 Essential (primary) hypertension; Z88.5 Allergy status to narcotic agent; Z79.899 Other long term (current) drug therapy; Z79.4 Long term (current) use of insulin; Z79.84 Long term (current) use of oral hypoglycemic drugs; Z90.49 Acquired absence of other specified parts of digestive tract; Z90.710 Acquired absence of both cervix and uterus
CPT/HCPCS: 36415; 71101; 73110; 80053; 82962; 83690; 85025; 93005; 96361; 96374; 99285; J2405; J7030

== ENCOUNTER → 2023-06-13 | Outpatient (CLI) | payer BC ==
[~2023-06-13] MED LIST changes: +NITR-87 PO; +ZOFR4T PO
[2023-06-13 08:35] LABS: Albumin 1.8 g/dL (3.4-5.0); Calcium 8.3 mg/dL (8.5-10.1)
[2023-06-13 08:39] LABS: Bilirubin, Total 1.2 mg/dL (0.2-1.0); Total Protein 8.3 g/dL (6.4-8.2)
[2023-06-13 08:46] LABS: Potassium 2.8 mmol/L (3.5-5.1)
== END | disposition home or self-care (01) ==
LOC: LAB 07:32
DX: E03.9 Hypothyroidism, unspecified (principal); E87.6 Hypokalemia
CPT/HCPCS: 36415; 80053; 84439; 84443

== ENCOUNTER 2023-06-16 13:47 | Inpatient (IN) | payer BC, OTHER ==
[~2023-06-16] VITALS: Ht 167.6 cm; Wt 82.0 kg
[2023-06-16] MEDS ORDERED: SODIUM CHLORIDE 0.9% 1,000 ML IV ONE ×2 (17:00)
[2023-06-16] MEDS ORDERED: methylPREDNISolone SOD SUCC 40 MG/ML VL IV ONE (17:00)
[2023-06-16] MEDS ORDERED: PANTOPRAZOLE 40 MG/10 ML VIAL INJ IV ONE (17:00)
[2023-06-16] MEDS ORDERED: ACETAMINOPHEN 325 MG TAB PO ONE (17:00)
[2023-06-16] MEDS ORDERED: metroNIDAZOLE 500MG/100ML 100 ML IV ONE (17:00)
[2023-06-16] MEDS ORDERED: IOHEXOL 300 MG/ML 100ML BOTTLE IJ ONE (17:26)
[2023-06-16 17:44] LABS: INR 1.59 (0.9-1.15); Partial Thromboplastin Time 30.7 SEC (24.5-34.5)
[2023-06-16] MEDS ORDERED: methylPREDNISolone SOD SUCC 40 MG/ML VL ONE (17:53)
[2023-06-16] MEDS ORDERED: ONDANSETRON HCL 4 MG/2 ML VIAL ONE (17:58)
[2023-06-16 18:00] LABS: Albumin 1.9 g/dL (3.4-5.0); Calcium 8.4 mg/dL (8.5-10.1); Magnesium 1.8 mg/dL (1.6-2.6); Potassium 3.8 mmol/L (3.5-5.1)
[2023-06-16 18:03] LABS: BUN/Creatinine Ratio 2.4 (10.0-20.0); Bilirubin, Total 1.3 mg/dL (0.2-1.0); Total Protein 8.5 g/dL (6.4-8.2)
[2023-06-16 18:04] LABS: Lactic Acid w/Reflex 6.5 mmol/L (0.4-2.0)
[2023-06-16] MEDS ORDERED: ONDANSETRON HCL 4 MG/2 ML VIAL IV ONE (18:15)
[2023-06-16] MEDS ORDERED: cefTRIAXone 1GM/50ML D5W 50 ML IV ONE (19:15)
[2023-06-16] MEDS ORDERED: SODIUM CHLORIDE 0.9% 2,350 ML IV ONE (19:30)
[2023-06-16] MEDS ORDERED: ALBUMIN 5% 50 ML IV ONE (19:45)
[2023-06-16 20:41] LABS: Lactic Acid w/Reflex 4.9 mmol/L (0.4-2.0)
[2023-06-16] MEDS ORDERED: MORPHINE SULFATE INJ 2 MG/ml SYRG IV PRN (21:45)
[2023-06-16] MEDS ORDERED: ONDANSETRON HCL 4 MG/2 ML VIAL IV PRN (21:45)
[2023-06-16 21:51] LABS: Basophils # (auto) 0 10 ^3/uL (0-0.2); Basophils % (auto) 0.3 % (0.0-2.0); Eosinophils # (auto) 0 10 ^3/uL (0-0.8); Eosinophils % (auto) 0.2 % (0.0-7.0); Hematocrit 33.1 % (36.0-46.0); Hemoglobin 11.2 g/dL (12.2-16.2); Lymphocytes % (auto) 11.7 % (10.0-50.0); Mean Corpuscular Hemoglobin 32.7 pg (28.0-32.0); Mean Corpuscular Hgb Conc. 33.8 g/dL (32.0-36.0); Mean Corpuscular Volume 96.7 fL (80.0-100.0); Monocytes # (auto) 0.3 10 ^3/uL (0-1.3); Monocytes % (auto) 3.1 % (0.0-12.0); Neutrophils # (auto) 7.3 10 ^3/uL (1.6-8.6); Neutrophils % (auto) 84.7 % (37.0-80.0); Nucleated Red Blood Cells % 0.2 %; Red Blood Cells 3.42 10^6/uL (4.0-5.20); Red Cell Distribution Width 14.6 % (11.8-14.3); White Blood Cell 8.6 10^3/uL (4.4-10.8)
[2023-06-16] MEDS ORDERED: VANCOMYCIN 1GM/250ML 250 ML IV SCH (22:00)
[2023-06-16 22:48] LABS: Lactic Acid w/Reflex 3.9 mmol/L (0.4-2.0)
[2023-06-16] MEDS: metroNIDAZOLE 500MG/100ML 100 ML IV SCH (22:53)
[2023-06-16 23:34] LABS: Basophils # (auto) 0 10 ^3/uL (0-0.2); Basophils % (auto) 0.1 % (0.0-2.0); Eosinophils # (auto) 0 10 ^3/uL (0-0.8); Hemoglobin 11.3 g/dL (12.2-16.2); Lymphocytes # (auto) 0.8 10 ^3/uL (0.4-5.4); Lymphocytes % (auto) 10.5 % (10.0-50.0); Mean Corpuscular Hemoglobin 32.1 pg (28.0-32.0); Mean Corpuscular Hgb Conc. 33.3 g/dL (32.0-36.0); Mean Corpuscular Volume 96.4 fL (80.0-100.0); Monocytes # (auto) 0.1 10 ^3/uL (0-1.3); Monocytes % (auto) 1.7 % (0.0-12.0); Neutrophils # (auto) 7.1 10 ^3/uL (1.6-8.6); Neutrophils % (auto) 87.7 % (37.0-80.0); Nucleated Red Blood Cells % 0.2 %; Red Blood Cells 3.53 10^6/uL (4.0-5.20); Red Cell Distribution Width 14.3 % (11.8-14.3); White Blood Cell 8.1 10^3/uL (4.4-10.8)
[2023-06-16 23:45] VITALS: PULSE 98; RESP 20; O2SAT 98
[2023-06-17 05:43] LABS: Basophils # (auto) 0 10 ^3/uL (0-0.2); Basophils % (auto) 0.2 % (0.0-2.0); Eosinophils # (auto) 0 10 ^3/uL (0-0.8); Hematocrit 31.1 % (36.0-46.0); Hemoglobin 10.1 g/dL (12.2-16.2); Lymphocytes # (auto) 1.1 10 ^3/uL (0.4-5.4); Lymphocytes % (auto) 16.8 % (10.0-50.0); Mean Corpuscular Hemoglobin 32.3 pg (28.0-32.0); Mean Corpuscular Hgb Conc. 32.4 g/dL (32.0-36.0); Mean Corpuscular Volume 99.8 fL (80.0-100.0); Monocytes # (auto) 0.2 10 ^3/uL (0-1.3); Monocytes % (auto) 2.5 % (0.0-12.0); Neutrophils # (auto) 5.2 10 ^3/uL (1.6-8.6); Neutrophils % (auto) 80.5 % (37.0-80.0); Nucleated Red Blood Cells % 0.1 %; Red Blood Cells 3.11 10^6/uL (4.0-5.20); White Blood Cell 6.4 10^3/uL (4.4-10.8)
[2023-06-17 05:56] LABS: Potassium 3.6 mmol/L (3.5-5.1)
[2023-06-17 06:05] LABS: Albumin 1.4 g/dL (3.4-5.0); BUN/Creatinine Ratio 4.2 (10.0-20.0); Bilirubin, Total 0.9 mg/dL (0.2-1.0); Calcium 7.3 mg/dL (8.5-10.1); Total Protein 6.9 g/dL (6.4-8.2)
[2023-06-17] MEDS: metroNIDAZOLE 500MG/100ML 100 ML IV SCH (06:17)
[2023-06-17 08:00] VITALS: PULSE 98; RESP 20; O2SAT 96
[2023-06-17] MEDS: cefTRIAXone 1GM/50ML D5W 50 ML IV SCH (09:32)
[2023-06-17] MEDS ORDERED: PANTOPRAZOLE 40 MG/10 ML VIAL INJ IV SCH (10:00)
[2023-06-17] MEDS ORDERED: ALBUMIN 5% 250 ML IV ONE (13:30)
[2023-06-17] MEDS ORDERED: ONDANSETRON HCL 4 MG/2 ML VIAL IV PRN (13:30)
[2023-06-17] MEDS ORDERED: cefTRIAXone 1GM/50ML D5W 50 ML IV SCH (13:30)
[2023-06-17] MEDS ORDERED: ACETAMINOPHEN 500 MG TAB PO SCH (13:30)
[2023-06-17] MEDS ORDERED: metroNIDAZOLE 500MG/100ML 100 ML IV SCH (14:00)
[2023-06-17] MEDS ORDERED: DEXTROSE (50%) 50ML SYRG IV PRN (15:15)
[2023-06-17 16:43] VITALS: PULSE 68; RESP 16; O2SAT 96
[2023-06-17 16:54] VITALS: BP 114/72; PULSE 90; RESP 18; TEMP 97.9
[2023-06-17] MEDS: InsuLIN REG 1unit/0.01ml Soln (100units/ml) SC SCH (17:00)
[2023-06-17] MEDS ORDERED: InsuLIN REG 1unit/0.01ml Soln (100units/ml) SC SCH ×2 (17:00→22:00)
[2023-06-17] MEDS: ACCU-CHEK COMFORT CURVE STRIP VI SCH ×2 (17:00→21:46)
[2023-06-17 17:04] VITALS: BP 114/72; PULSE 90; RESP 18; TEMP 97.9
[2023-06-17] MEDS: SODIUM CHLORIDE 0.9% 1,000 ML IV SCH (18:57)
[2023-06-17] MEDS: methylPREDNISolone 4 MG TAB PO SCH ×2 (19:08→23:35)
[2023-06-17] MEDS: MESALAMINE 400mg Delayed Release Cap PO SCH (21:45)
[2023-06-17 21:46] VITALS: BP 101/65; PULSE 85; RESP 17; TEMP 98.2; O2SAT 92
[2023-06-18] MEDS: metroNIDAZOLE 500MG/100ML 100 ML IV SCH ×2 (02:59→11:40)
[2023-06-18 04:52] VITALS: BP 108/70; PULSE 85; RESP 19; TEMP 98.5; O2SAT 91
[2023-06-18] MEDS: methylPREDNISolone 4 MG TAB PO SCH (06:36)
[2023-06-18] MEDS: MESALAMINE 400mg Delayed Release Cap PO SCH ×2 (06:36→14:30)
[2023-06-18] MEDS: InsuLIN REG 1unit/0.01ml Soln (100units/ml) SC SCH ×3 (06:43→17:00)
[2023-06-18] MEDS: ACCU-CHEK COMFORT CURVE STRIP VI SCH ×3 (06:43→17:00)
[2023-06-18 07:02] LABS: Basophils # (auto) 0 10 ^3/uL (0-0.2); Basophils % (auto) 0.2 % (0.0-2.0); Eosinophils # (auto) 0 10 ^3/uL (0-0.8); Hemoglobin 10.1 g/dL (12.2-16.2); Lymphocytes # (auto) 1.3 10 ^3/uL (0.4-5.4); Lymphocytes % (auto) 14.9 % (10.0-50.0); Mean Corpuscular Hemoglobin 32.9 pg (28.0-32.0); Mean Corpuscular Hgb Conc. 33.7 g/dL (32.0-36.0); Mean Corpuscular Volume 97.4 fL (80.0-100.0); Monocytes # (auto) 0.5 10 ^3/uL (0-1.3); Monocytes % (auto) 5.7 % (0.0-12.0); Neutrophils # (auto) 7.1 10 ^3/uL (1.6-8.6); Neutrophils % (auto) 79.2 % (37.0-80.0); Nucleated Red Blood Cells % 0.1 %; Red Blood Cells 3.07 10^6/uL (4.0-5.20); Red Cell Distribution Width 14.6 % (11.8-14.3); White Blood Cell 8.9 10^3/uL (4.4-10.8)
[2023-06-18 07:16] LABS: Calcium 7.9 mg/dL (8.5-10.1); Potassium 3.7 mmol/L (3.5-5.1)
[2023-06-18 07:18] LABS: BUN/Creatinine Ratio 8.1 (10.0-20.0)
[2023-06-18] MEDS ORDERED: methylPREDNISolone SOD SUCC 40 MG/ML VL IV SCH (07:30)
[2023-06-18 08:00] VITALS: PULSE 82; RESP 16; O2SAT 95
[2023-06-18 09:20] VITALS: BP 100/67; PULSE 80; RESP 18; TEMP 98; O2SAT 94
[2023-06-18] MEDS ORDERED: PANTOPRAZOLE 40 MG/10 ML VIAL INJ IV SCH (10:00)
[2023-06-18] MEDS ORDERED: FOLIC ACID 1 MG TAB PO SCH (10:00)
[2023-06-18] MEDS: cefTRIAXone 1GM/50ML D5W 50 ML IV SCH (10:06)
[2023-06-18 12:07] VITALS: BP 111/73; PULSE 83; RESP 18; TEMP 97.9; O2SAT 95
[2023-06-18] MEDS: SODIUM CHLORIDE 0.9% 1,000 ML IV SCH (13:30)
[2023-06-18 16:49] VITALS: BP 102/63; PULSE 82; RESP 20; TEMP 98.3; O2SAT 91
[2023-06-18 17:26] VITALS: TEMP 36.8
[2023-06-19 12:41] LABS: Hepatitis C Antibody Negative (Negative)
== END 2023-06-18 18:55 | disposition home or self-care (01) | DRG 385 ==
LOC: ER 13:47 → OVERFLOW 21:50 → EDUNIT# 21:50 → CENTRAL 06-17 15:59
PROVIDERS: ADMIT Internal Medicine; ATTEND Student in an Organized Health Care Education/Training Program
DX: K50.911 Crohn's disease, unspecified, with rectal bleeding (principal); E43 Unspecified severe protein-calorie malnutrition; K29.71 Gastritis, unspecified, with bleeding; D68.9 Coagulation defect, unspecified; C22.0 Liver cell carcinoma; E87.20 Acidosis, unspecified; K52.9 Noninfective gastroenteritis and colitis, unspecified; R00.0 Tachycardia, unspecified; E11.9 Type 2 diabetes mellitus without complications; K74.60 Unspecified cirrhosis of liver; K64.9 Unspecified hemorrhoids; N28.89 Other specified disorders of kidney and ureter; E11.65 Type 2 diabetes mellitus with hyperglycemia; K76.0 Fatty (change of) liver, not elsewhere classified; Z82.49 Family history of ischemic heart disease and other diseases of the circulatory system; Z83.3 Family history of diabetes mellitus; Z90.710 Acquired absence of both cervix and uterus; Z90.49 Acquired absence of other specified parts of digestive tract; Z88.5 Allergy status to narcotic agent; Z68.29 Body mass index [BMI] 29.0-29.9, adult
CPT/HCPCS: 36415; 71045; 74177; 74183; 76705; 80048; 80053; 82105; 82270; 82553; 83605; 83690; 83735; 83986; 84484; 85025; 85048; 85384; 85610; 85730; 86803; 86850; 86900; 86901; 87040; 87045; 87340; 87493; 93005; 96361; 96365; 96366; 96367; 96375; 96376; C9113; G0378; J0696; J1815; J2405; J3490

== ENCOUNTER → 2023-08-06 | Outpatient (CLI) | payer BC ==
[2023-08-06 14:11] LABS: Blood Urea Nitrogen < 5 mg/dL (9-23)
== END | disposition home or self-care (01) ==
LOC: LAB 13:18
PROVIDERS: ATTEND Nurse Practitioner Family
DX: D35.00 Benign neoplasm of unspecified adrenal gland (principal)
CPT/HCPCS: 36415; 82565; 84520

== ENCOUNTER → 2023-10-06 | Outpatient (CLI) | payer BC ==
[~2023-10-06] MED LIST changes: +CEPH500C PO; +PHEN-1045 PO
[2023-10-06 13:43] LABS: Basophils # (auto) 0 10 ^3/uL (0-0.2); Basophils % (auto) 0.5 % (0.0-2.0); Eosinophils # (auto) 0.1 10 ^3/uL (0-0.8); Eosinophils % (auto) 1.2 % (0.0-7.0); Hematocrit 34.7 % (36.0-46.0); Hemoglobin 11.5 g/dL (12.2-16.2); Lymphocytes # (auto) 2.8 10 ^3/uL (0.4-5.4); Lymphocytes % (auto) 31.6 % (10.0-50.0); Mean Corpuscular Hemoglobin 32.6 pg (28.0-32.0); Mean Corpuscular Hgb Conc. 33.2 g/dL (32.0-36.0); Mean Corpuscular Volume 98.2 fL (80.0-100.0); Monocytes # (auto) 0.6 10 ^3/uL (0-1.3); Monocytes % (auto) 6.5 % (0.0-12.0); Neutrophils # (auto) 5.4 10 ^3/uL (1.6-8.6); Neutrophils % (auto) 60.2 % (37.0-80.0); Nucleated Red Blood Cells % 0.1 %; Red Blood Cells 3.54 10^6/uL (4.0-5.20); Red Cell Distribution Width 15.4 % (11.8-14.3); White Blood Cell 8.9 10^3/uL (4.4-10.8)
[2023-10-06 13:57] LABS: Urine Bacteria FEW /hpf (None Seen); Urine Blood 3+ /uL (Negative); Urine Clarity HAZY (Clear); Urine Color Yellow (Yellow); Urine Protein, UAD TRACE (Negative); Urine Specific Gravity 1.019 (1.001-1.035); Urine Urobilinogen Normal (Negative); Urine WBC 20 /hpf (0 - 5)
[2023-10-06 14:14] LABS: Alanine Aminotransferase 38 U/L (7-40); Albumin 2.8 g/dL (3.2-4.8); Alkaline Phosphatase 192 U/L (46-116); Anion Gap 14 (5-15); Aspartate Aminotransferase 99 U/L (13-40); BUN/Creatinine Ratio 4.3 (10.0-20.0); Blood Urea Nitrogen 5 mg/dL (9-23); Calcium 8.4 mg/dL (8.5-10.1); Carbon Dioxide 27 mmol/L (20-30); Chloride 92 mmol/L (98-107); Glucose 266 mg/dL (74-106); Potassium 3.1 mmol/L (3.5-5.1); Sodium 133 mmol/L (136-145)
[2023-10-06 14:15] LABS: Total Protein 6.8 g/dL (5.7-8.2)
== END | disposition home or self-care (01) ==
LOC: LAB 13:15
PROVIDERS: ATTEND Nurse Practitioner Family
DX: N39.0 Urinary tract infection, site not specified (principal); R19.7 Diarrhea, unspecified
CPT/HCPCS: 36415; 80053; 81001; 84439; 84443; 85025; 87086

== ENCOUNTER 2023-10-09 12:19 | Inpatient (IN) | payer BC ==
[~2023-10-09] VITALS: Ht 165.1 cm; Wt 73.0 kg
[2023-10-09 14:04] LABS: Basophils # (auto) 0 10 ^3/uL (0-0.2); Basophils % (auto) 0.4 % (0.0-2.0); Eosinophils # (auto) 0.1 10 ^3/uL (0-0.8); Hematocrit 35.3 % (36.0-46.0); Hemoglobin 11.7 g/dL (12.2-16.2); Lymphocytes # (auto) 3.1 10 ^3/uL (0.4-5.4); Mean Corpuscular Hemoglobin 32.4 pg (28.0-32.0); Mean Corpuscular Hgb Conc. 33.2 g/dL (32.0-36.0); Mean Corpuscular Volume 97.5 fL (80.0-100.0); Monocytes % (auto) 8.2 % (0.0-12.0); Neutrophils # (auto) 7.7 10 ^3/uL (1.6-8.6); Neutrophils % (auto) 64.4 % (37.0-80.0); Red Blood Cells 3.62 10^6/uL (4.0-5.20); Red Cell Distribution Width 15.1 % (11.8-14.3); White Blood Cell 11.9 10^3/uL (4.4-10.8)
[2023-10-09 14:23] LABS: Alanine Aminotransferase 43 U/L (7-40); Alkaline Phosphatase 191 U/L (46-116); Anion Gap 12 (5-15); Aspartate Aminotransferase 113 U/L (13-40); Bilirubin, Total 0.9 mg/dL (0.2-1.0); Calcium 8.6 mg/dL (8.5-10.1); Carbon Dioxide 32 mmol/L (20-30); Chloride 93 mmol/L (98-107); Glucose 162 mg/dL (74-106); Sodium 137 mmol/L (136-145); Total Protein 7.3 g/dL (5.7-8.2)
[2023-10-09 15:14] LABS: BUN/Creatinine Ratio 4.2 (10.0-20.0); Blood Urea Nitrogen < 5 mg/dL (9-23); Potassium 2.8 mmol/L (3.5-5.1)
[2023-10-09] MEDS ORDERED: POTASSIUM CHL 20MEQ/100ML 100 ML IV ONE (17:15)
[2023-10-09] MEDS ORDERED: ACETAMINOPHEN 325 MG TAB PO ONE (17:15)
[2023-10-09] MEDS ORDERED: POTASSIUM CHL 20 Meq TABLET PO ONE (17:15)
[2023-10-09 18:21] LABS: INR 1.35 (0.9-1.15); Partial Thromboplastin Time 29.7 SEC (24.5-34.5); Prothrombin Time 13.9 sec (9.3-11.8)
[2023-10-09] MEDS ORDERED: NITROGLYCERIN 0.4 MG SL TAB SL PRN (21:15)
[2023-10-09] MEDS ORDERED: MORPHINE SULFATE INJ 2 MG/ml SYRG IV PRN (21:15)
[2023-10-09] MEDS ORDERED: ONDANSETRON HCL 4 MG/2 ML VIAL IV PRN (21:15)
[2023-10-09] MEDS ORDERED: ACETAMINOPHEN 325 MG TAB PO PRN (21:15)
[2023-10-09] MEDS ORDERED: DOCUSATE SOD 100 MG CAP PO PRN (21:15)
[2023-10-09] MEDS ORDERED: LOPERAMIDE HCL 2 MG CAP/TAB PO PRN (21:30)
[2023-10-09] MEDS ORDERED: DEXTROSE (50%) 50ML SYRG IV PRN (21:30)
[2023-10-09 21:50] VITALS: PULSE 118; RESP 20; O2SAT 93
[2023-10-09] MEDS: MAGNESIUM SULFATE 1GM/100ML 100 ML IV SCH ×2 (21:52→22:30)
[2023-10-09] MEDS: ACCU-CHEK COMFORT CURVE STRIP VI SCH (23:06)
[2023-10-09] MEDS: InsuLIN REG 1unit/0.01ml Soln (100units/ml) SC SCH (23:09)
[2023-10-10 04:00] VITALS: PULSE 97; RESP 14; O2SAT 98
[2023-10-10 05:55] LABS: Basophils # (auto) 0 10 ^3/uL (0-0.2); Basophils % (auto) 0.4 % (0.0-2.0); Eosinophils # (auto) 0.1 10 ^3/uL (0-0.8); Eosinophils % (auto) 1.2 % (0.0-7.0); Hematocrit 33.6 % (36.0-46.0); Hemoglobin 11.3 g/dL (12.2-16.2); Lymphocytes # (auto) 3.1 10 ^3/uL (0.4-5.4); Mean Corpuscular Hemoglobin 32.5 pg (28.0-32.0); Mean Corpuscular Hgb Conc. 33.5 g/dL (32.0-36.0); Monocytes # (auto) 1.1 10 ^3/uL (0-1.3); Monocytes % (auto) 11.3 % (0.0-12.0); Neutrophils # (auto) 5.6 10 ^3/uL (1.6-8.6); Neutrophils % (auto) 56.1 % (37.0-80.0); Nucleated Red Blood Cells % 0.1 %; Red Blood Cells 3.47 10^6/uL (4.0-5.20); White Blood Cell 9.9 10^3/uL (4.4-10.8)
[2023-10-10 06:10] LABS: Urine Bacteria FEW /hpf (None Seen); Urine Blood 3+ /uL (Negative); Urine Clarity Clear (Clear); Urine Color Yellow (Yellow); Urine Protein, UAD 1+ (Negative); Urine Specific Gravity 1.015 (1.001-1.035); Urine Urobilinogen Normal (Negative); Urine WBC 8 /hpf (0 - 5); Urine pH 6.5 (5.0-8.0)
[2023-10-10 06:15] LABS: Alanine Aminotransferase 35 U/L (7-40); Albumin 2.8 g/dL (3.2-4.8); Alkaline Phosphatase 198 U/L (46-116); Anion Gap 10 (5-15); Aspartate Aminotransferase 89 U/L (13-40); BUN/Creatinine Ratio 4.9 (10.0-20.0); Bilirubin, Total 1.3 mg/dL (0.2-1.0); Blood Urea Nitrogen 6 mg/dL (9-23); Calcium 8.6 mg/dL (8.7-10.4); Carbon Dioxide 34 mmol/L (20-30); Chloride 92 mmol/L (98-107); Glucose 83 mg/dL (74-106); Sodium 136 mmol/L (136-145); Total Protein 6.9 g/dL (5.7-8.2)
[2023-10-10] MEDS ORDERED: LEVOTHYROXINE SODIUM 100 MCG TAB PO SCH (07:00)
[2023-10-10] MEDS: InsuLIN REG 1unit/0.01ml Soln (100units/ml) SC SCH ×4 (07:00→21:27)
[2023-10-10] MEDS: ACCU-CHEK COMFORT CURVE STRIP VI SCH ×4 (07:03→21:23)
[2023-10-10] MEDS ORDERED: cefTRIAXone 1GM/50ML D5W 50 ML IV SCH (09:00)
[2023-10-10] MEDS ORDERED: LISINOPRIL 20 MG TAB PO SCH (10:00)
[2023-10-10] MEDS ORDERED: SPIRONOLACTONE 25 MG TAB PO SCH (10:00)
[2023-10-10] MEDS: ATORVASTATIN 20 MG TAB PO SCH (11:17)
[2023-10-10] MEDS ORDERED: LEVOTHYROXINE SODIUM 50 MCG TAB PO ONE (11:45)
[2023-10-10] MEDS ORDERED: POTASSIUM CHL 20 Meq TABLET PO ONE (11:45)
[2023-10-10] MEDS: SODIUM CHLORIDE 0.9% 1,000 ML IV SCH (12:45)
[2023-10-10 17:58] VITALS: BP 121/71; PULSE 107; RESP 18; TEMP 99.1; O2SAT 97
[2023-10-10 20:00] VITALS: PULSE 101; O2SAT 95
[2023-10-10] MEDS: CEPHALEXIN 250 MG CAP PO SCH (21:22)
[2023-10-10 22:00] VITALS: BP 103/61; PULSE 94; RESP 18; TEMP 99.3; O2SAT 93
[2023-10-11] MEDS: SODIUM CHLORIDE 0.9% 1,000 ML IV SCH (00:03)
[2023-10-11 05:00] VITALS: BP 90/48; PULSE 94; RESP 17; TEMP 99.3; O2SAT 92
[2023-10-11 06:01] LABS: Basophils # (auto) 0 10 ^3/uL (0-0.2); Basophils % (auto) 0.4 % (0.0-2.0); Eosinophils # (auto) 0.1 10 ^3/uL (0-0.8); Eosinophils % (auto) 1.9 % (0.0-7.0); Hematocrit 31.1 % (36.0-46.0); Hemoglobin 10.3 g/dL (12.2-16.2); Lymphocytes # (auto) 1.9 10 ^3/uL (0.4-5.4); Lymphocytes % (auto) 32.2 % (10.0-50.0); Mean Corpuscular Hemoglobin 32.3 pg (28.0-32.0); Mean Corpuscular Hgb Conc. 33.2 g/dL (32.0-36.0); Mean Corpuscular Volume 97.4 fL (80.0-100.0); Monocytes # (auto) 0.7 10 ^3/uL (0-1.3); Monocytes % (auto) 11.2 % (0.0-12.0); Neutrophils # (auto) 3.2 10 ^3/uL (1.6-8.6); Neutrophils % (auto) 54.3 % (37.0-80.0); Nucleated Red Blood Cells % 0.3 %; Red Blood Cells 3.19 10^6/uL (4.0-5.20); Red Cell Distribution Width 14.7 % (11.8-14.3); White Blood Cell 5.9 10^3/uL (4.4-10.8)
[2023-10-11 06:23] LABS: Alanine Aminotransferase 26 U/L (7-40); Albumin 2.3 g/dL (3.2-4.8); Alkaline Phosphatase 169 U/L (46-116); Anion Gap 2 (5-15); Aspartate Aminotransferase 88 U/L (13-40); Calcium 8.3 mg/dL (8.7-10.4); Carbon Dioxide 33 mmol/L (20-30); Chloride 106 mmol/L (98-107); Glucose 93 mg/dL (74-106); Magnesium 1.8 mg/dL (1.6-2.6); Potassium 3.6 mmol/L (3.5-5.1); Sodium 141 mmol/L (136-145)
[2023-10-11 06:24] LABS: Total Protein 5.8 g/dL (5.7-8.2)
[2023-10-11 06:25] LABS: BUN/Creatinine Ratio 4.4 (10.0-20.0); Blood Urea Nitrogen < 5 mg/dL (9-23)
[2023-10-11] MEDS: InsuLIN REG 1unit/0.01ml Soln (100units/ml) SC SCH ×2 (06:45→12:06)
[2023-10-11] MEDS: ACCU-CHEK COMFORT CURVE STRIP VI SCH ×2 (06:45→11:59)
[2023-10-11] MEDS ORDERED: LEVOTHYROXINE SODIUM 50 MCG TAB PO SCH (07:00)
[2023-10-11] MEDS ORDERED: LEVOTHYROXINE SODIUM 25 MCG TAB PO SCH ×2 (07:00)
[2023-10-11] MEDS ORDERED: LEVOTHYROXINE SODIUM 100 MCG TAB PO SCH (07:00)
[2023-10-11 07:47] VITALS: PULSE 93
[2023-10-11 08:05] VITALS: PULSE 94; RESP 17; O2SAT 97
[2023-10-11 09:00] VITALS: BP 109/69; PULSE 92; RESP 18; TEMP 98.7; O2SAT 97
[2023-10-11] MEDS: ATORVASTATIN 20 MG TAB PO SCH (10:44)
[2023-10-11] MEDS: CEPHALEXIN 250 MG CAP PO SCH (10:45)
[2023-10-11] MEDS ORDERED: CEPH500C PO ×2 (10:56)
[2023-10-11 13:00] VITALS: BP 119/70; PULSE 92; RESP 19; TEMP 98.3; O2SAT 95
[2023-10-11 14:15] VITALS: BP 90/48; PULSE 94; RESP 17; TEMP 99.3; O2SAT 92
== END 2023-10-11 15:00 | disposition home or self-care (01) | DRG 603 ==
LOC: ER 12:19 → TELE 21:14 → TELE-EAST 10-10 17:38
PROVIDERS: ADMIT Internal Medicine Pulmonary Disease; ATTEND Student in an Organized Health Care Education/Training Program
DX: L03.115 Cellulitis of right lower limb (principal); K50.90 Crohn's disease, unspecified, without complications; N17.9 Acute kidney failure, unspecified; K74.60 Unspecified cirrhosis of liver; D72.829 Elevated white blood cell count, unspecified; E87.6 Hypokalemia; I10 Essential (primary) hypertension; E86.0 Dehydration; R74.01 Elevation of levels of liver transaminase levels; E03.9 Hypothyroidism, unspecified; E11.9 Type 2 diabetes mellitus without complications; E78.5 Hyperlipidemia, unspecified; Z82.49 Family history of ischemic heart disease and other diseases of the circulatory system; Z83.3 Family history of diabetes mellitus; Z90.710 Acquired absence of both cervix and uterus
CPT/HCPCS: 36415; 71045; 80053; 81001; 82088; 82962; 83036; 83735; 83880; 84443; 85025; 85610; 85730; 87086; 93970; G0378; J0696; J1815; J3480

== ENCOUNTER 2024-01-10 15:30 | Emergency (ER) | payer BC ==
[~2024-01-10] VITALS: Ht 167.6 cm; Wt 86.4 kg
[~2024-01-10 15:30] MED LIST changes: -EMPA1TAB PO
[2024-01-10 17:29] LABS: Basophils # (auto) 0.1 10 ^3/uL (0-0.2); Basophils % (auto) 1.5 % (0.0-2.0); Eosinophils # (auto) 0 10 ^3/uL (0-0.8); Eosinophils % (auto) 0.4 % (0.0-7.0); Hematocrit 27.1 % (36.0-46.0); Hemoglobin 8.7 g/dL (12.2-16.2); Lymphocytes # (auto) 1.7 10 ^3/uL (0.4-5.4); Lymphocytes % (auto) 23.5 % (10.0-50.0); Mean Corpuscular Hemoglobin 29.9 pg (28.0-32.0); Mean Corpuscular Hgb Conc. 32.2 g/dL (32.0-36.0); Mean Corpuscular Volume 92.9 fL (80.0-100.0); Monocytes # (auto) 0.8 10 ^3/uL (0-1.3); Monocytes % (auto) 10.9 % (0.0-12.0); Neutrophils # (auto) 4.7 10 ^3/uL (1.6-8.6); Neutrophils % (auto) 63.7 % (37.0-80.0); Red Blood Cells 2.92 10^6/uL (4.0-5.20); Red Cell Distribution Width 14.1 % (11.8-14.3); White Blood Cell 7.4 10^3/uL (4.4-10.8)
[2024-01-10 17:33] LABS: Alanine Aminotransferase 22 U/L (7-40); Alkaline Phosphatase 148 U/L (46-116); Anion Gap 9 (5-15); Aspartate Aminotransferase 63 U/L (13-40); BUN/Creatinine Ratio 7.3 (10.0-20.0); Bilirubin, Total 0.8 mg/dL (0.2-1.0); Blood Urea Nitrogen 14 mg/dL (9-23); Calcium 7.7 mg/dL (8.7-10.4); Carbon Dioxide 23 mmol/L (20-30); Chloride 99 mmol/L (98-107); Glucose 217 mg/dL (74-106); Sodium 131 mmol/L (136-145)
[2024-01-10] MEDS ORDERED: FERR325T24 PO (18:54)
[2024-01-10 19:44] VITALS: BP 122/79; PULSE 110; RESP 16; TEMP 98.2; O2SAT 99
== END 2024-01-10 19:58 | disposition home or self-care (01) ==
LOC: ER 15:30
DX: E11.22 Type 2 diabetes mellitus with diabetic chronic kidney disease (principal); N18.9 Chronic kidney disease, unspecified; D64.9 Anemia, unspecified; R60.0 Localized edema; Z98.890 Other specified postprocedural states; Z88.8 Allergy status to other drugs, medicaments and biological substances; Z79.899 Other long term (current) drug therapy
CPT/HCPCS: 36415; 80053; 83880; 84484; 85025; 93005; 93970

== ENCOUNTER 2024-01-21 09:49 | Inpatient (IN) | payer BC ==
[~2024-01-21] VITALS: Ht 167.6 cm; Wt 74.1 kg
[~2024-01-21 09:49] MED LIST changes: +FERR325T24 PO
[2024-01-21 10:36] LABS: Basophils # (auto) 0.1 10 ^3/uL (0-0.2); Basophils % (auto) 1.2 % (0.0-2.0); Eosinophils # (auto) 0.1 10 ^3/uL (0-0.8); Eosinophils % (auto) 1.3 % (0.0-7.0); Hemoglobin 9.8 g/dL (12.2-16.2); Lymphocytes # (auto) 2.3 10 ^3/uL (0.4-5.4); Lymphocytes % (auto) 33.3 % (10.0-50.0); Mean Corpuscular Hgb Conc. 31.7 g/dL (32.0-36.0); Mean Corpuscular Volume 91.5 fL (80.0-100.0); Monocytes # (auto) 0.6 10 ^3/uL (0-1.3); Monocytes % (auto) 8.2 % (0.0-12.0); Neutrophils # (auto) 3.9 10 ^3/uL (1.6-8.6); Nucleated Red Blood Cells % 0.1 %; Red Blood Cells 3.39 10^6/uL (4.0-5.20); Red Cell Distribution Width 13.7 % (11.8-14.3); White Blood Cell 6.9 10^3/uL (4.4-10.8)
[2024-01-21 10:56] LABS: Alanine Aminotransferase 18 U/L (7-40); Albumin 2.1 g/dL (3.2-4.8); Alkaline Phosphatase 114 U/L (46-116); Anion Gap 8 (5-15); Aspartate Aminotransferase 65 U/L (13-40); BUN/Creatinine Ratio 6.4 (10.0-20.0); Bilirubin, Total 1.1 mg/dL (0.2-1.0); Blood Urea Nitrogen 13 mg/dL (9-23); Calcium 8.1 mg/dL (8.5-10.1); Carbon Dioxide 25 mmol/L (20-30); Chloride 100 mmol/L (98-107); Glucose 180 mg/dL (74-106); Potassium 3.7 mmol/L (3.5-5.1); Sodium 133 mmol/L (136-145)
[2024-01-21] MEDS: LACTULOSE 20Gm/30ML SOLN PO ONE (12:08)
[2024-01-21] MEDS: SODIUM CHLORIDE 0.9% 1,000 ML IV ONE (12:09)
[2024-01-21 12:39] LABS: Magnesium 1.5 mg/dL (1.6-2.6)
[2024-01-21 12:40] LABS: INR 1.41 (0.9-1.15); Partial Thromboplastin Time 30.6 SEC (24.5-34.5); Prothrombin Time 14.5 sec (9.3-11.8)
[2024-01-21] MEDS ORDERED: ALBUTEROL SULF 2.5 MG/0.5ML(0.5%) NEB SOLN NEB PRN (16:00)
[2024-01-21] MEDS: FUROSEMIDE 20 MG/2 ML VIAL IV ONE (16:00)
[2024-01-21] MEDS ORDERED: DEXTROSE (50%) 50ML SYRG IV PRN (16:00)
[2024-01-21 17:16] LABS: Bilirubin, Direct 0.7 mg/dL (<0.3); Phosphorus 4.9 mg/dL (2.4-5.1)
[2024-01-21 19:28] VITALS: BP 101/69; PULSE 79; RESP 16; TEMP 98.4; O2SAT 97
[2024-01-21] MEDS: ACETAMINOPHEN 325 MG TAB PO PRN (19:58)
[2024-01-21 22:47] VITALS: BP 90/61; PULSE 82; RESP 16; TEMP 97.9; O2SAT 96
[2024-01-21] MEDS: MIDODRINE HCL 10 MG TAB PO SCH (22:55)
[2024-01-21] MEDS: FERROUS SULFATE 325mg EC TAB PO SCH (22:55)
[2024-01-21] MEDS: ACCU-CHEK COMFORT CURVE STRIP VI SCH (22:55)
[2024-01-21 23:00] VITALS: O2SAT 97
[2024-01-21] MEDS: InsuLIN REG 1unit/0.01ml Soln (100units/ml) SC SCH (23:01)
[2024-01-21] MEDS: ALBUMIN 25% 50 ML IV SCH (23:24)
[2024-01-22] VITALS (7 sets, daily range): BP systolic 91–106; BP diastolic 45–76; PULSE 70–101; RESP 16–20; TEMP 97.9–98.5; O2SAT 90–94
[2024-01-22] MEDS: MAGNESIUM SULFATE 1GM/100ML 100 ML IV SCH ×2 (00:12)
[2024-01-22] MEDS: OCTREOTIDE ACETATE 100 MCG/ML VL SUBCUT ONE ×2 (00:25→00:27)
[2024-01-22] MEDS: LEVOTHYROXINE SODIUM 100 MCG TAB PO SCH (06:07)
[2024-01-22 06:52] LABS: Basophils # (auto) 0.1 10 ^3/uL (0-0.2); Eosinophils # (auto) 0.1 10 ^3/uL (0-0.8); Eosinophils % (auto) 1.5 % (0.0-7.0); Hemoglobin 8.2 g/dL (12.2-16.2); Lymphocytes # (auto) 3.4 10 ^3/uL (0.4-5.4); Neutrophils # (auto) 4.2 10 ^3/uL (1.6-8.6); Nucleated Red Blood Cells % 0.1 %
[2024-01-22 06:55] LABS: Basophils % (auto) 0.9 % (0.0-2.0); Hematocrit 25.1 % (36.0-46.0); Lymphocytes % (auto) 39.2 % (10.0-50.0); Mean Corpuscular Hemoglobin 29.8 pg (28.0-32.0); Mean Corpuscular Hgb Conc. 32.7 g/dL (32.0-36.0); Mean Corpuscular Volume 91.3 fL (80.0-100.0); Monocytes # (auto) 0.9 10 ^3/uL (0-1.3); Monocytes % (auto) 10.5 % (0.0-12.0); Neutrophils % (auto) 47.9 % (37.0-80.0); Red Blood Cells 2.75 10^6/uL (4.0-5.20); Red Cell Distribution Width 13.4 % (11.8-14.3); White Blood Cell 8.8 10^3/uL (4.4-10.8)
[2024-01-22 07:11] LABS: Alanine Aminotransferase 15 U/L (7-40); Alkaline Phosphatase 91 U/L (46-116); Anion Gap 9 (5-15); Calcium 7.9 mg/dL (8.7-10.4); Carbon Dioxide 24 mmol/L (20-30); Chloride 101 mmol/L (98-107); Potassium 3.7 mmol/L (3.5-5.1); Sodium 134 mmol/L (136-145)
[2024-01-22 07:12] LABS: Aspartate Aminotransferase 49 U/L (13-40)
[2024-01-22 07:14] LABS: BUN/Creatinine Ratio 5.8 (10.0-20.0); Blood Urea Nitrogen 13 mg/dL (9-23); Glucose 153 mg/dL (74-106)
[2024-01-22 07:16] LABS: Total Protein 6.3 g/dL (5.7-8.2)
[2024-01-22] MEDS: FUROSEMIDE 20 MG/2 ML VIAL IV SCH (09:43)
[2024-01-22] MEDS: ATORVASTATIN 20 MG TAB PO SCH (09:44)
[2024-01-22] MEDS: LISINOPRIL 20 MG TAB PO SCH (09:44)
[2024-01-22] MEDS ORDERED: ALBUMIN 25% 100 ML IV SCH (12:00)
[2024-01-22 19:06] LABS: Sodium Urine < 10 mmol/L (40-220); Urine Bacteria FEW /hpf (None Seen); Urine Blood 3+ /uL (Negative); Urine Clarity HAZY (Clear); Urine Color Yellow (Yellow); Urine Hyaline Cast MANY /lpf (0 - 2); Urine Mucus FEW (None Seen); Urine Protein, UAD TRACE (Negative); Urine Specific Gravity 1.013 (1.001-1.035); Urine Urobilinogen Normal (Negative); Urine WBC 18 /hpf (0 - 5)
[2024-01-22 19:11] LABS: Protein, Urine 35.7 mg/dL (0.0-11.9)
[2024-01-22 19:14] LABS: Creatinine, Urine 142.14 mg/dL (30.0-125.0); Urine Protein/Creatinine Ratio 0.25
[2024-01-22 19:51] LABS: Body Fluid Polymorphonuclear 55 % (0-25); Body Fluid White Blood Cells 165 CUMM (0-200)
[2024-01-22 19:53] LABS: Body Fluid Red Blood Cells 1363 CUMM (0-2000)
[2024-01-22] MEDS: CHOLECALCIFEROL (VITD3) 1,000UNIT=25mCg TAB PO ONE (22:01)
[2024-01-23] VITALS (11 sets, daily range): BP systolic 87–115; BP diastolic 46–89; PULSE 71–91; RESP 16–18; TEMP 98.4–98.8; O2SAT 91–97
[2024-01-23] MEDS: ALBUMIN 25% 50 ML IV ONE (05:38)
[2024-01-23 06:00] LABS: Basophils # (auto) 0.1 10 ^3/uL (0-0.2); Eosinophils % (auto) 0.5 % (0.0-7.0); Red Cell Distribution Width 13.6 % (11.8-14.3)
[2024-01-23 06:05] LABS: Basophils % (auto) 0.8 % (0.0-2.0); Eosinophils # (auto) 0 10 ^3/uL (0-0.8); Hematocrit 23.4 % (36.0-46.0); Hemoglobin 7.8 g/dL (12.2-16.2); Lymphocytes # (auto) 3.4 10 ^3/uL (0.4-5.4); Lymphocytes % (auto) 33.8 % (10.0-50.0); Mean Corpuscular Hemoglobin 30.2 pg (28.0-32.0); Mean Corpuscular Hgb Conc. 33.4 g/dL (32.0-36.0); Mean Corpuscular Volume 90.5 fL (80.0-100.0); Monocytes % (auto) 9.9 % (0.0-12.0); Neutrophils # (auto) 5.5 10 ^3/uL (1.6-8.6); Nucleated Red Blood Cells % 0.2 %; Red Blood Cells 2.59 10^6/uL (4.0-5.20)
[2024-01-23 06:06] LABS: INR 1.61 (0.9-1.15); Partial Thromboplastin Time 34.8 SEC (24.5-34.5); Prothrombin Time 16.4 sec (9.3-11.8)
[2024-01-23 06:17] LABS: % Iron Saturation 36.3 % (15-50); Alanine Aminotransferase 10 U/L (7-40); Albumin 1.6 g/dL (3.2-4.8); Alkaline Phosphatase 74 U/L (46-116); Anion Gap 8 (5-15); Aspartate Aminotransferase 36 U/L (13-40); BUN/Creatinine Ratio 5.8 (10.0-20.0); Blood Urea Nitrogen 13 mg/dL (9-23); Calcium 7.5 mg/dL (8.7-10.4); Carbon Dioxide 26 mmol/L (20-30); Chloride 102 mmol/L (98-107); Glucose 138 mg/dL (74-106); Magnesium 1.8 mg/dL (1.6-2.6); Potassium 3.8 mmol/L (3.5-5.1); Sodium 136 mmol/L (136-145)
[2024-01-23 06:18] LABS: Bilirubin, Total 0.9 mg/dL (0.2-1.0); Total Protein 4.9 g/dL (5.7-8.2)
[2024-01-23 06:20] LABS: Ferritin 242.7 ng/mL (10-291); Folate (Folic Acid) 7.05 ng/mL (>5.38)
[2024-01-23] MEDS: LACTULOSE 20Gm/30ML SOLN PO SCH (09:59)
[2024-01-23] MEDS: CHOLECALCIFEROL (VITD3) 1,000UNIT=25mCg TAB PO SCH (09:59)
[2024-01-23 12:06] LABS: Protein, Body Fluid 1.5 g/dL (.)
[2024-01-23 12:16] LABS: Lactic Acid w/Reflex 2.3 mmol/L (0.4-2.0)
[2024-01-23] MEDS: cefTRIAXone 1GM/50ML D5W 50 ML IV ONE (16:11)
[2024-01-23] MEDS: MIDODRINE HCL 10 MG TAB PO SCH (18:09)
[2024-01-23] MEDS: CALCIUM ACETATE 667 MG CAP PO SCH (18:09)
[2024-01-23] MEDS: ATORVASTATIN 20 MG TAB PO SCH (22:10)
[2024-01-24] VITALS (10 sets, daily range): BP systolic 90–112; BP diastolic 50–69; PULSE 77–97; RESP 14–18; TEMP 36.7; O2SAT 92–97
[2024-01-24 06:25] LABS: Eosinophils # (auto) 0.1 10 ^3/uL (0-0.8); Hematocrit 23.3 % (36.0-46.0); Hemoglobin 7.8 g/dL (12.2-16.2); Mean Corpuscular Hemoglobin 29.9 pg (28.0-32.0); Red Blood Cells 2.61 10^6/uL (4.0-5.20); White Blood Cell 8.6 10^3/uL (4.4-10.8)
[2024-01-24 06:26] LABS: Basophils # (auto) 0 10 ^3/uL (0-0.2); Basophils % (auto) 0.5 % (0.0-2.0); Eosinophils % (auto) 0.8 % (0.0-7.0); Lymphocytes # (auto) 3.2 10 ^3/uL (0.4-5.4); Lymphocytes % (auto) 36.8 % (10.0-50.0); Mean Corpuscular Hgb Conc. 33.5 g/dL (32.0-36.0); Mean Corpuscular Volume 89.3 fL (80.0-100.0); Monocytes % (auto) 11.7 % (0.0-12.0); Neutrophils # (auto) 4.3 10 ^3/uL (1.6-8.6); Neutrophils % (auto) 50.2 % (37.0-80.0); Nucleated Red Blood Cells % 0.1 %; Red Cell Distribution Width 13.2 % (11.8-14.3)
[2024-01-24 06:27] LABS: Alanine Aminotransferase 10 U/L (7-40); Albumin 1.8 g/dL (3.2-4.8); Alkaline Phosphatase 74 U/L (46-116); Anion Gap 5 (5-15); Aspartate Aminotransferase 36 U/L (13-40); BUN/Creatinine Ratio 5.3 (10.0-20.0); Blood Urea Nitrogen 11 mg/dL (9-23); Calcium 7.8 mg/dL (8.7-10.4); Carbon Dioxide 26 mmol/L (20-30); Chloride 106 mmol/L (98-107); Glucose 101 mg/dL (74-106); Magnesium 1.9 mg/dL (1.6-2.6); Potassium 3.3 mmol/L (3.5-5.1); Sodium 137 mmol/L (136-145)
[2024-01-24 06:28] LABS: Bilirubin, Total 0.7 mg/dL (0.2-1.0); Total Protein 5.2 g/dL (5.7-8.2)
[2024-01-24 06:29] LABS: INR 1.59 (0.9-1.15); Partial Thromboplastin Time 34.2 SEC (24.5-34.5); Prothrombin Time 16.2 sec (9.3-11.8)
[2024-01-24] MEDS: POTASSIUM CHL 20 Meq TABLET PO ONE ×3 (09:28→14:21)
[2024-01-24] MEDS: cefTRIAXone 1GM/50ML D5W 50 ML IV SCH (09:29)
[2024-01-24] MEDS ORDERED: MIDODRINE HCL 10 MG TAB PO SCH (12:00)
[2024-01-24] MEDS ORDERED: ALBUMIN 25% 50 ML IV SCH (12:15)
[2024-01-24] MEDS: MAGNESIUM OXIDE 400 MG TAB PO ONE (14:22)
[2024-01-24] MEDS: MIDODRINE HCL 10 MG TAB PO SCH (14:22)
[2024-01-24] MEDS: FUROSEMIDE 100 MG/10ML VIAL IV ONE (14:34)
[2024-01-24] MEDS: ALBUMIN 25% 50 ML IV SCH (14:37)
[2024-01-25] VITALS (10 sets, daily range): BP systolic 86–112; BP diastolic 46–67; PULSE 82–103; RESP 18–20; TEMP 97.4–98.5; O2SAT 90–97
[2024-01-25 06:47] LABS: Basophils # (auto) 0.1 10 ^3/uL (0-0.2); Basophils % (auto) 0.8 % (0.0-2.0); Eosinophils # (auto) 0.1 10 ^3/uL (0-0.8); Eosinophils % (auto) 1.6 % (0.0-7.0); Hematocrit 21.7 % (36.0-46.0); Hemoglobin 7.1 g/dL (12.2-16.2); Lymphocytes % (auto) 38.2 % (10.0-50.0); Mean Corpuscular Hemoglobin 29.5 pg (28.0-32.0); Mean Corpuscular Hgb Conc. 32.8 g/dL (32.0-36.0); Mean Corpuscular Volume 89.9 fL (80.0-100.0); Monocytes # (auto) 0.9 10 ^3/uL (0-1.3); Monocytes % (auto) 10.7 % (0.0-12.0); Neutrophils # (auto) 3.9 10 ^3/uL (1.6-8.6); Neutrophils % (auto) 48.7 % (37.0-80.0); Nucleated Red Blood Cells % 0.1 %; Red Blood Cells 2.41 10^6/uL (4.0-5.20); Red Cell Distribution Width 13.5 % (11.8-14.3)
[2024-01-25 07:17] LABS: Alanine Aminotransferase 10 U/L (7-40); Albumin 2.1 g/dL (3.2-4.8); Alkaline Phosphatase 73 U/L (46-116); Anion Gap 8 (5-15); Aspartate Aminotransferase 35 U/L (13-40); BUN/Creatinine Ratio 5.6 (10.0-20.0); Blood Urea Nitrogen 11 mg/dL (9-23); Carbon Dioxide 26 mmol/L (20-30); Chloride 106 mmol/L (98-107); Glucose 113 mg/dL (74-106); Magnesium 1.7 mg/dL (1.6-2.6); Potassium 3.3 mmol/L (3.5-5.1); Sodium 140 mmol/L (136-145)
[2024-01-25 07:18] LABS: Bilirubin, Total 0.7 mg/dL (0.2-1.0); Total Protein 5.3 g/dL (5.7-8.2)
[2024-01-25 11:06] LABS: Creatinine, Urine 53.63 mg/dL (30.0-125.0)
[2024-01-25] MEDS: POTASSIUM EFFERVESENT TAB 25 MEQ PO ONE ×2 (11:46→16:45)
[2024-01-25] MEDS: BUMETANIDE 2.5mg/10ml (0.25 mg/ml) INJ IV ONE (17:36)
[2024-01-25] MEDS: SPIRONOLACTONE 25 MG TAB PO SCH (17:37)
[2024-01-25] MEDS: metOLazone 5 MG TAB PO ONE (17:37)
[2024-01-26] VITALS (14 sets, daily range): BP systolic 89–124; BP diastolic 48–73; PULSE 58–98; RESP 16–22; TEMP 97.2–98.3; O2SAT 93–99
[2024-01-26 05:57] LABS: Basophils # (auto) 0.1 10 ^3/uL (0-0.2); Eosinophils # (auto) 0.2 10 ^3/uL (0-0.8); Lymphocytes # (auto) 2.6 10 ^3/uL (0.4-5.4); Mean Corpuscular Hemoglobin 29.5 pg (28.0-32.0); Mean Corpuscular Hgb Conc. 33.3 g/dL (32.0-36.0); Monocytes # (auto) 0.7 10 ^3/uL (0-1.3); Monocytes % (auto) 10.2 % (0.0-12.0)
[2024-01-26 06:00] LABS: Basophils % (auto) 0.8 % (0.0-2.0); Eosinophils % (auto) 2.5 % (0.0-7.0); Lymphocytes % (auto) 36.9 % (10.0-50.0); Mean Corpuscular Volume 88.5 fL (80.0-100.0); Neutrophils # (auto) 3.5 10 ^3/uL (1.6-8.6); Neutrophils % (auto) 49.6 % (37.0-80.0); Red Blood Cells 2.37 10^6/uL (4.0-5.20); Red Cell Distribution Width 13.4 % (11.8-14.3); White Blood Cell 7.1 10^3/uL (4.4-10.8)
[2024-01-26 06:06] LABS: Alanine Aminotransferase 15 U/L (7-40); Albumin 2.2 g/dL (3.2-4.8); Alkaline Phosphatase 77 U/L (46-116); Anion Gap 8 (5-15); Aspartate Aminotransferase 57 U/L (13-40); BUN/Creatinine Ratio 5.1 (10.0-20.0); Bilirubin, Total 0.6 mg/dL (0.2-1.0); Blood Urea Nitrogen 9 mg/dL (9-23); Calcium 7.8 mg/dL (8.7-10.4); Carbon Dioxide 26 mmol/L (20-30); Chloride 105 mmol/L (98-107); Glucose 134 mg/dL (74-106); Magnesium 1.6 mg/dL (1.6-2.6); Potassium 3.2 mmol/L (3.5-5.1); Sodium 139 mmol/L (136-145)
[2024-01-26 06:07] LABS: Total Protein 5.2 g/dL (5.7-8.2)
[2024-01-26 06:08] LABS: INR 1.64 (0.9-1.15); Partial Thromboplastin Time 37.6 SEC (24.5-34.5); Prothrombin Time 16.7 sec (9.3-11.8)
[2024-01-26] MEDS: FAMOTIDINE (10MG/ML) 2ML VL IV SCH (09:09)
[2024-01-26] MEDS: MAGNESIUM OXIDE 400 MG TAB PO ONE (09:10)
[2024-01-26] MEDS: POTASSIUM CHL 20 Meq TABLET PO ONE ×2 (09:10→15:10)
[2024-01-26] MEDS: ALBUMIN 25% 100 ML IV SCH (10:20)
[2024-01-26] MEDS: diphenhdrAMINE HCL 25 MG CAP PO PRN (12:06)
[2024-01-26] MEDS: FUROSEMIDE 20 MG/2 ML VIAL IV ONE (15:09)
[2024-01-26] MEDS: SPIRONOLACTONE 25 MG TAB PO ONE (15:10)
[2024-01-26 19:46] LABS: Basophils # (auto) 0.1 10 ^3/uL (0-0.2); Basophils % (auto) 0.8 % (0.0-2.0); Eosinophils # (auto) 0.2 10 ^3/uL (0-0.8); Eosinophils % (auto) 3.1 % (0.0-7.0); Hematocrit 26.8 % (36.0-46.0); Hemoglobin 8.8 g/dL (12.2-16.2); Lymphocytes # (auto) 2.4 10 ^3/uL (0.4-5.4); Lymphocytes % (auto) 32.2 % (10.0-50.0); Mean Corpuscular Hemoglobin 28.5 pg (28.0-32.0); Mean Corpuscular Hgb Conc. 32.7 g/dL (32.0-36.0); Mean Corpuscular Volume 87.3 fL (80.0-100.0); Monocytes # (auto) 0.8 10 ^3/uL (0-1.3); Monocytes % (auto) 10.6 % (0.0-12.0); Neutrophils % (auto) 53.3 % (37.0-80.0); Nucleated Red Blood Cells % 0.1 %; Red Blood Cells 3.07 10^6/uL (4.0-5.20); Red Cell Distribution Width 14.6 % (11.8-14.3); White Blood Cell 7.4 10^3/uL (4.4-10.8)
[2024-01-26 19:58] LABS: Chloride 106 mmol/L (98-107); Potassium 3.2 mmol/L (3.5-5.1); Sodium 140 mmol/L (136-145)
[2024-01-26 19:59] LABS: Anion Gap 8 (5-15); Carbon Dioxide 26 mmol/L (20-30)
[2024-01-26 20:00] LABS: Calcium 8.7 mg/dL (8.7-10.4)
[2024-01-26 20:04] LABS: BUN/Creatinine Ratio 3.9 (10.0-20.0); Blood Urea Nitrogen 7 mg/dL (9-23); Glucose 168 mg/dL (74-106)
[2024-01-26 20:05] LABS: Magnesium 1.6 mg/dL (1.6-2.6)
[2024-01-27 05:32] VITALS: BP 113/54; PULSE 76; RESP 22; TEMP 97.6; O2SAT 100
[2024-01-27 06:25] LABS: Basophils # (auto) 0 10 ^3/uL (0-0.2); Hemoglobin 7.9 g/dL (12.2-16.2); Lymphocytes # (auto) 2.1 10 ^3/uL (0.4-5.4); Red Blood Cells 2.73 10^6/uL (4.0-5.20); Red Cell Distribution Width 14.9 % (11.8-14.3)
[2024-01-27 06:27] LABS: Basophils % (auto) 0.6 % (0.0-2.0); Eosinophils # (auto) 0.2 10 ^3/uL (0-0.8); Eosinophils % (auto) 3.1 % (0.0-7.0); Hematocrit 23.8 % (36.0-46.0); Lymphocytes % (auto) 36.6 % (10.0-50.0); Mean Corpuscular Hgb Conc. 33.4 g/dL (32.0-36.0); Monocytes # (auto) 0.7 10 ^3/uL (0-1.3); Monocytes % (auto) 12.2 % (0.0-12.0); Neutrophils # (auto) 2.7 10 ^3/uL (1.6-8.6); Neutrophils % (auto) 47.5 % (37.0-80.0); White Blood Cell 5.7 10^3/uL (4.4-10.8)
[2024-01-27 06:47] LABS: Alanine Aminotransferase 13 U/L (7-40); Albumin 2.7 g/dL (3.2-4.8); Alkaline Phosphatase 60 U/L (46-116); Anion Gap 9 (5-15); Aspartate Aminotransferase 46 U/L (13-40); BUN/Creatinine Ratio 4.9 (10.0-20.0); Bilirubin, Total 0.9 mg/dL (0.2-1.0); Blood Urea Nitrogen 8 mg/dL (9-23); Calcium 8.4 mg/dL (8.7-10.4); Carbon Dioxide 25 mmol/L (20-30); Chloride 107 mmol/L (98-107); Glucose 148 mg/dL (74-106); Magnesium 1.5 mg/dL (1.6-2.6); Sodium 141 mmol/L (136-145); Total Protein 5.2 g/dL (5.7-8.2)
[2024-01-27 07:38] VITALS: O2SAT 97
[2024-01-27 08:00] VITALS: BP 101/58; PULSE 89; RESP 16; TEMP 98.5; O2SAT 97
[2024-01-27 08:30] VITALS: PULSE 80; PULSE 90; RESP 18
[2024-01-27] MEDS: MAGNESIUM OXIDE 400 MG TAB PO ONE (09:08)
[2024-01-27] MEDS: POTASSIUM CHL 20 Meq TABLET PO ONE (09:08)
[2024-01-27] MEDS: SPIRONOLACTONE 25 MG TAB PO SCH (09:09)
[2024-01-27] MEDS: FUROSEMIDE 20 MG/2 ML VIAL IV SCH (09:16)
[2024-01-27] MEDS ORDERED: LACT10PA2 PO (10:36)
[2024-01-27] MEDS ORDERED: SPIR25TA PO (10:36)
[2024-01-27] MEDS ORDERED: FURO40TA4 PO (10:36)
[2024-01-27] MEDS ORDERED: POTA10TA51 PO (10:36)
[2024-01-27] MEDS ORDERED: CHOL20007 PO (10:43)
[2024-01-27] MEDS ORDERED: MAGN400T40 PO (10:43)
== END 2024-01-27 12:10 | disposition home or self-care (01) | DRG 432 ==
LOC: ER 09:49 → OVERFLOW 16:08 → WEST WING 22:47 → TELE-WESTW 01-23 05:39
PROVIDERS: ADMIT Internal Medicine Geriatric Medicine; ATTEND Internal Medicine Geriatric Medicine
PROC: 0W9G3ZZ Drainage of Peritoneal Cavity, Percutaneous Approach (ICD-10-PCS; principal; 2024-01-25)
PROC: 30233N1 Transfusion of Nonautologous Red Blood Cells into Peripheral Vein, Percutaneous Approach (ICD-10-PCS; 2024-01-26)
DX: K70.31 Alcoholic cirrhosis of liver with ascites (principal); E43 Unspecified severe protein-calorie malnutrition; J96.01 Acute respiratory failure with hypoxia; N18.4 Chronic kidney disease, stage 4 (severe); E87.1 Hypo-osmolality and hyponatremia; N17.9 Acute kidney failure, unspecified; N39.0 Urinary tract infection, site not specified; F32.A Depression, unspecified; F41.9 Anxiety disorder, unspecified; F10.10 Alcohol abuse, uncomplicated; E11.21 Type 2 diabetes mellitus with diabetic nephropathy; E11.22 Type 2 diabetes mellitus with diabetic chronic kidney disease; E11.65 Type 2 diabetes mellitus with hyperglycemia; N28.89 Other specified disorders of kidney and ureter; E66.01 Morbid (severe) obesity due to excess calories; E83.42 Hypomagnesemia; E03.9 Hypothyroidism, unspecified; D63.1 Anemia in chronic kidney disease; L29.9 Pruritus, unspecified; E27.8 Other specified disorders of adrenal gland; I95.9 Hypotension, unspecified; E83.39 Other disorders of phosphorus metabolism; E87.6 Hypokalemia; Z88.5 Allergy status to narcotic agent; Z90.710 Acquired absence of both cervix and uterus; Z68.26 Body mass index [BMI] 26.0-26.9, adult; Z82.49 Family history of ischemic heart disease and other diseases of the circulatory system; Z83.3 Family history of diabetes mellitus; Z79.84 Long term (current) use of oral hypoglycemic drugs; Z79.4 Long term (current) use of insulin
CPT/HCPCS: 36415; 71046; 74176; 76775; 76942; 80048; 80053; 80061; 81001; 82105; 82140; 82248; 82306; 82570; 82607; 82728; 82746; 82962; 83010; 83036; 83540; 83550; 83605; 83615; 83690; 83735; 83880; 83930; 83970; 83986; 84100; 84133; 84156; 84300; 84443; 84484; 85025; 85045; 85384; 85610; 85730; 86850; 86900; 86901; 86920; 87040; 87086; 87205; 89051; 93005; 96360; G0378; J1815; J3490; P9047

== ENCOUNTER 2024-03-11 09:52 | Inpatient (IN) | payer BC, MEDICAID ==
[~2024-03-11] VITALS: Ht 167.6 cm; Wt 73.1 kg
[~2024-03-11 09:52] MED LIST changes: -ATOR20TA50 PO; -CEPH500C PO; +CHOL20007 PO; -FERR325T24 PO; +GLIP1TAB8 PO; -GLIP5TAB12 PO; -INSUINJ37 SUBCUT; +LEV50T PO; -LEVO100T8 PO; -LEVO500T31 PO; -LEVO500T91 PO; -LISI20TA56 PO; +MAGN400T40 PO; -METH4PAK PO; -METR500T PO; -NITR-87 PO; -PHEN-1045 PO; -ZOFR4T PO
[2024-03-11 10:20] VITALS: PULSE 110; RESP 20; O2SAT 99
[2024-03-11] MEDS ORDERED: HYDROmorphone HCL 2 MG/ML VL/or syr IV ONE (11:00)
[2024-03-11] MEDS ORDERED: ONDANSETRON HCL 4 MG/2 ML VIAL IV ONE (11:00)
[2024-03-11 11:15] LABS: Basophils # (auto) 0.2 10 ^3/uL (0-0.2); Basophils % (auto) 1.3 % (0.0-2.0); Eosinophils # (auto) 0 10 ^3/uL (0-0.8); Eosinophils % (auto) 0.3 % (0.0-7.0); Hematocrit 27.7 % (36.0-46.0); Lymphocytes # (auto) 1.6 10 ^3/uL (0.4-5.4); Mean Corpuscular Hemoglobin 27.5 pg (28.0-32.0); Mean Corpuscular Hgb Conc. 32.6 g/dL (32.0-36.0); Mean Corpuscular Volume 84.3 fL (80.0-100.0); Monocytes # (auto) 0.6 10 ^3/uL (0-1.3); Monocytes % (auto) 4.8 % (0.0-12.0); Neutrophils # (auto) 9.6 10 ^3/uL (1.6-8.6); Neutrophils % (auto) 80.6 % (37.0-80.0); Nucleated Red Blood Cells % 0.1 %; Red Blood Cells 3.28 10^6/uL (4.0-5.20); Red Cell Distribution Width 19.1 % (11.8-14.3); White Blood Cell 11.9 10^3/uL (4.4-10.8)
[2024-03-11 11:32] LABS: Lipase 20 U/L (12-53)
[2024-03-11 11:38] LABS: Blood Alcohol < 3.0 mg/dL (<10)
[2024-03-11 11:45] LABS: Alanine Aminotransferase 22 U/L (7-40); Albumin 2.1 g/dL (3.2-4.8); Alkaline Phosphatase 155 U/L (46-116); Anion Gap 16 (5-15); Aspartate Aminotransferase 48 U/L (13-40); BUN/Creatinine Ratio 12.3 (10.0-20.0); Blood Urea Nitrogen 35 mg/dL (9-23); Calcium 8.9 mg/dL (8.7-10.4); Carbon Dioxide 13 mmol/L (20-30); Chloride 99 mmol/L (98-107); Glucose 144 mg/dL (74-106); Magnesium 1.8 mg/dL (1.6-2.6); Potassium 5.2 mmol/L (3.5-5.1); Sodium 128 mmol/L (136-145)
[2024-03-11 11:46] LABS: Total Protein 7.7 g/dL (5.7-8.2)
[2024-03-11 12:20] LABS: Lactic Acid w/Reflex 6.7 mmol/L (0.4-2.0)
[2024-03-11 12:49] LABS: INR 1.67 (0.9-1.15); Partial Thromboplastin Time 37.6 SEC (24.5-34.5)
[2024-03-11] MEDS: diphenhdrAMINE HCL 50 MG/1 ML VL IV ONE (13:00)
[2024-03-11] MEDS: ONDANSETRON HCL 4 MG/2 ML VIAL IV ONE (13:00)
[2024-03-11] MEDS: PIPERACILLIN-TAZOB 3.375GM 100 ML IV ONE (13:01)
[2024-03-11] MEDS: fentaNYL CITRATE 100 MCG/2 ML VL IV ONE (13:34)
[2024-03-11] MEDS ORDERED: ONDANSETRON HCL 4 MG/2 ML VIAL IV PRN (15:45)
[2024-03-11] MEDS ORDERED: DOCUSATE SOD 100 MG CAP PO PRN (15:45)
[2024-03-11] MEDS: SODIUM CHLORIDE 0.9% 1,000 ML IV SCH (16:20)
[2024-03-11 17:09] LABS: Lactic Acid w/Reflex 7.6 mmol/L (0.4-2.0)
[2024-03-11] MEDS ORDERED: VANCOMYCIN PER PHARMACY 0 MG IV ONE (17:15)
[2024-03-11] MEDS ORDERED: VANCOMYCIN PER PHARMACY 0 MG IV SCH (17:30)
[2024-03-11] MEDS: VANCOMYCIN 1GM/200ML 200 ML IV ONE (17:47)
[2024-03-11] MEDS: SODIUM CHLORIDE 0.9% 1,000 ML IV ONE (17:47)
[2024-03-11 18:46] LABS: Body Fluid Polymorphonuclear 9 % (0-25); Body Fluid Red Blood Cells 845 CUMM (0-2000); Body Fluid White Blood Cells 38 CUMM (0-200)
[2024-03-11 19:15] VITALS: BP 95/55; PULSE 110; RESP 18; TEMP 98.2; O2SAT 98
[2024-03-11 20:00] VITALS: PULSE 110; PULSE 118; RESP 18; O2SAT 98
[2024-03-11 21:00] VITALS: BP 100/45; PULSE 110; RESP 16; TEMP 97.9; O2SAT 99
[2024-03-11] MEDS: LACTULOSE 20Gm/30ML SOLN PO SCH (21:31)
[2024-03-11] MEDS: PIPERACILLIN-TAZOB 3.375GM 100 ML IV SCH (21:31)
[2024-03-11] MEDS: HYDROcodone-ACET 5/325MG TAB PO PRN (21:34)
[2024-03-11] MEDS ORDERED: LACTULOSE 20Gm/30ML SOLN PO PRN (22:00)
[2024-03-12] VITALS (7 sets, daily range): BP systolic 90–121; BP diastolic 35–91; PULSE 71–114; RESP 16–20; TEMP 97.5–98.3; O2SAT 94–100
[2024-03-12] MEDS: LEVOTHYROXINE SODIUM 50 MCG TAB PO SCH (05:41)
[2024-03-12 05:49] LABS: Basophils # (auto) 0.1 10 ^3/uL (0-0.2); Eosinophils # (auto) 0.1 10 ^3/uL (0-0.8); Hemoglobin 7.7 g/dL (12.2-16.2); Lymphocytes # (auto) 3.1 10 ^3/uL (0.4-5.4)
[2024-03-12 05:51] LABS: Basophils % (auto) 0.3 % (0.0-2.0); Eosinophils % (auto) 0.6 % (0.0-7.0); Hematocrit 23.2 % (36.0-46.0); Lymphocytes % (auto) 19.3 % (10.0-50.0); Mean Corpuscular Hgb Conc. 33.3 g/dL (32.0-36.0); Monocytes # (auto) 1.1 10 ^3/uL (0-1.3); Neutrophils # (auto) 11.6 10 ^3/uL (1.6-8.6); Neutrophils % (auto) 72.8 % (37.0-80.0); Red Blood Cells 2.76 10^6/uL (4.0-5.20); Red Cell Distribution Width 18.9 % (11.8-14.3); White Blood Cell 15.9 10^3/uL (4.4-10.8)
[2024-03-12 06:09] LABS: Alanine Aminotransferase 20 U/L (7-40); Albumin 1.7 g/dL (3.2-4.8); Alkaline Phosphatase 125 U/L (46-116); Anion Gap 14 (5-15); Aspartate Aminotransferase 46 U/L (13-40); BUN/Creatinine Ratio 15.5 (10.0-20.0); Blood Urea Nitrogen 42 mg/dL (9-23); Calcium 8.3 mg/dL (8.5-10.1); Carbon Dioxide 14 mmol/L (20-30); Chloride 102 mmol/L (98-107); Glucose 115 mg/dL (74-106); Potassium 5.1 mmol/L (3.5-5.1); Sodium 130 mmol/L (136-145)
[2024-03-12 06:10] LABS: Bilirubin, Total 0.9 mg/dL (0.2-1.0); Total Protein 5.7 g/dL (5.7-8.2)
[2024-03-12] MEDS: VANCOMYCIN 750mg/150ml 150 ML IV ONE (11:00)
[2024-03-12] MEDS: FUROSEMIDE 20 MG/2 ML VIAL IV ONE (12:30)
[2024-03-12 13:06] LABS: Protein, Body Fluid 1.5 g/dL (.)
[2024-03-12] MEDS: phytonadione 10 MG in SODIUM CHL 0.9% 50 ML IV ONE (13:06)
[2024-03-12 18:24] LABS: Urine Bacteria FEW /hpf (None Seen); Urine Blood 1+ /uL (Negative); Urine Clarity Clear (Clear); Urine Color Light-Yellow (Yellow); Urine Protein, UAD Negative (Negative); Urine Specific Gravity 1.019 (1.001-1.035); Urine Urobilinogen Normal (Negative); Urine WBC 8 /hpf (0 - 5); Urine pH 5.5 (5.0-9.0)
[2024-03-12 18:33] LABS: Amphetamine Screen, Urine Neg (NEGATIVE); Barbiturate Scree,Urine Neg (NEGATIVE); Benzodiazephine Screen, Urine Neg (NEGATIVE); Cannabinoid Screen, Urine Neg (NEGATIVE); Cocaine Screen, Urine Neg (NEGATIVE); Opiate Scree,Urine Neg (NEGATIVE); Phencyclidine Screen, Urine Neg (NEGATIVE)
[2024-03-12] MEDS: LINEZOLID 600MG/300ML 300 ML IV SCH (21:36)
[2024-03-13] MEDS: PIPERACILLIN-TAZOB 3.375GM 100 ML IV SCH (01:23)
[2024-03-13 05:00] VITALS: BP 102/58; PULSE 110; RESP 18; TEMP 97.9; O2SAT 99
[2024-03-13 07:30] LABS: Basophils # (auto) 0 10 ^3/uL (0-0.2); Basophils % (auto) 0.9 % (0.0-2.0); Eosinophils # (auto) 0.2 10 ^3/uL (0-0.8); Eosinophils % (auto) 4.2 % (0.0-7.0); Hematocrit 31.5 % (36.0-46.0); Hemoglobin 9.9 g/dL (12.2-16.2); Lymphocytes # (auto) 1.5 10 ^3/uL (0.4-5.4); Lymphocytes % (auto) 33.9 % (10.0-50.0); Mean Corpuscular Hemoglobin 28.3 pg (28.0-32.0); Mean Corpuscular Hgb Conc. 31.6 g/dL (32.0-36.0); Mean Corpuscular Volume 89.6 fL (80.0-100.0); Monocytes # (auto) 0.3 10 ^3/uL (0-1.3); Monocytes % (auto) 7.7 % (0.0-12.0); Neutrophils # (auto) 2.4 10 ^3/uL (1.6-8.6); Neutrophils % (auto) 53.3 % (37.0-80.0); Nucleated Red Blood Cells % 0.3 %; Red Blood Cells 3.51 10^6/uL (4.0-5.20); Red Cell Distribution Width 19.9 % (11.8-14.3); White Blood Cell 4.4 10^3/uL (4.4-10.8)
[2024-03-13 07:47] LABS: INR 1.09 (0.9-1.15); Prothrombin Time 11.4 sec (9.3-11.8)
[2024-03-13 07:57] LABS: Alanine Aminotransferase 24 U/L (7-40); Albumin 2.9 g/dL (3.2-4.8); Alkaline Phosphatase 115 U/L (46-116); Anion Gap 9 (5-15); Aspartate Aminotransferase 29 U/L (13-40); Bilirubin, Total 0.3 mg/dL (0.2-1.0); Calcium 7.4 mg/dL (8.5-10.1); Carbon Dioxide 23 mmol/L (20-30); Chloride 108 mmol/L (98-107); Glucose 79 mg/dL (74-106); Potassium 3.2 mmol/L (3.5-5.1); Sodium 140 mmol/L (136-145); Total Protein 5.1 g/dL (5.7-8.2)
[2024-03-13 07:59] LABS: BUN/Creatinine Ratio 9.6 (10.0-20.0); Blood Urea Nitrogen < 5 mg/dL (9-23)
[2024-03-13 08:00] VITALS: PULSE 108
[2024-03-13] MEDS: FUROSEMIDE 20 MG/2 ML VIAL IV SCH (10:10)
[2024-03-13 13:09] VITALS: BP 95/55; PULSE 66; RESP 17; TEMP 97.9; O2SAT 95
[2024-03-13 17:00] VITALS: BP 100/46; PULSE 79; RESP 19; TEMP 97.9; O2SAT 99
[2024-03-13] MEDS: SODIUM CHLORIDE 0.9% 1,000 ML IV SCH (18:20)
[2024-03-13] MEDS: MIDODRINE HCL 10 MG TAB PO SCH (18:25)
[2024-03-13] MEDS: DOCUSATE SOD 100 MG CAP PO SCH (18:25)
[2024-03-13 20:00] VITALS: PULSE 113
[2024-03-13 21:00] VITALS: BP 95/59; PULSE 100; RESP 16; TEMP 97.5; O2SAT 97
[2024-03-14] VITALS (7 sets, daily range): BP systolic 86–99; BP diastolic 56–59; PULSE 95–105; RESP 16–20; TEMP 97.4–97.9; O2SAT 98–100
[2024-03-14] MEDS: KETOROLAC TROMETH 30 MG/ML 1ML VIAL IV ONE (23:44)
[2024-03-15] VITALS (8 sets, daily range): BP systolic 90–99; BP diastolic 52–60; PULSE 86–102; RESP 17–20; TEMP 97.4–97.8; O2SAT 97–100
[2024-03-15] MEDS ORDERED: POTASSIUM CHL 20 Meq TABLET PO ONE (11:30)
[2024-03-15] MEDS ORDERED: LACTULOSE 20Gm/30ML SOLN PO PRN (11:30)
[2024-03-15] MEDS: POTASSIUM EFFERVESENT TAB 25 MEQ PO ONE (13:45)
[2024-03-15] MEDS: HYDROcodone-ACET 5/325MG TAB PO PRN (20:12)
[2024-03-16] VITALS (7 sets, daily range): BP systolic 84–109; BP diastolic 45–60; PULSE 71–108; RESP 16–19; TEMP 97.2–98.4; O2SAT 96–100
[2024-03-16 06:29] LABS: Alanine Aminotransferase 19 U/L (7-40); Albumin 1.6 g/dL (3.2-4.8); Alkaline Phosphatase 123 U/L (46-116); Anion Gap 7 (5-15); Aspartate Aminotransferase 42 U/L (13-40); Blood Urea Nitrogen 33 mg/dL (9-23); Carbon Dioxide 18 mmol/L (20-30); Chloride 102 mmol/L (98-107); Glucose 98 mg/dL (74-106); Magnesium 1.8 mg/dL (1.6-2.6); Potassium 4.1 mmol/L (3.5-5.1)
[2024-03-16 06:30] LABS: Bilirubin, Total 0.9 mg/dL (0.2-1.0); Total Protein 5.9 g/dL (5.7-8.2)
[2024-03-16 06:34] LABS: Basophils # (auto) 0.1 10 ^3/uL (0-0.2); Eosinophils # (auto) 0.2 10 ^3/uL (0-0.8); Hemoglobin 7.4 g/dL (12.2-16.2)
[2024-03-16 06:38] LABS: Basophils % (auto) 0.7 % (0.0-2.0); Eosinophils % (auto) 1.9 % (0.0-7.0); Hematocrit 21.8 % (36.0-46.0); Lymphocytes # (auto) 2.5 10 ^3/uL (0.4-5.4); Lymphocytes % (auto) 25.2 % (10.0-50.0); Mean Corpuscular Hemoglobin 28.4 pg (28.0-32.0); Mean Corpuscular Hgb Conc. 34.2 g/dL (32.0-36.0); Mean Corpuscular Volume 82.9 fL (80.0-100.0); Monocytes # (auto) 0.6 10 ^3/uL (0-1.3); Monocytes % (auto) 5.9 % (0.0-12.0); Neutrophils # (auto) 6.7 10 ^3/uL (1.6-8.6); Neutrophils % (auto) 66.3 % (37.0-80.0); Nucleated Red Blood Cells % 0.1 %; Red Blood Cells 2.63 10^6/uL (4.0-5.20); Sodium 127 mmol/L (136-145); White Blood Cell 10.1 10^3/uL (4.4-10.8)
[2024-03-16] MEDS: FUROSEMIDE 20 MG TAB PO SCH (09:49)
[2024-03-16] MEDS: SPIRONOLACTONE 25 MG TAB PO SCH (09:49)
[2024-03-17 05:00] VITALS: BP 94/54; PULSE 107; RESP 16; TEMP 97.6; O2SAT 98
[2024-03-17 07:05] LABS: Basophils # (auto) 0.1 10 ^3/uL (0-0.2); Eosinophils # (auto) 0 10 ^3/uL (0-0.8); Eosinophils % (auto) 0.2 % (0.0-7.0); Hemoglobin 7.7 g/dL (12.2-16.2); Neutrophils # (auto) 12.3 10 ^3/uL (1.6-8.6); Nucleated Red Blood Cells % 0.1 %; White Blood Cell 14.5 10^3/uL (4.4-10.8)
[2024-03-17 07:08] LABS: Basophils % (auto) 0.4 % (0.0-2.0); Hematocrit 23.8 % (36.0-46.0); Lymphocytes # (auto) 1.5 10 ^3/uL (0.4-5.4); Lymphocytes % (auto) 10.4 % (10.0-50.0); Mean Corpuscular Hemoglobin 27.4 pg (28.0-32.0); Mean Corpuscular Hgb Conc. 32.4 g/dL (32.0-36.0); Mean Corpuscular Volume 84.7 fL (80.0-100.0); Monocytes # (auto) 0.7 10 ^3/uL (0-1.3); Monocytes % (auto) 4.5 % (0.0-12.0); Neutrophils % (auto) 84.5 % (37.0-80.0); Red Blood Cells 2.82 10^6/uL (4.0-5.20); Red Cell Distribution Width 19.8 % (11.8-14.3)
[2024-03-17 07:30] LABS: Alanine Aminotransferase 20 U/L (7-40); Albumin 1.8 g/dL (3.2-4.8); Alkaline Phosphatase 144 U/L (46-116); Anion Gap 11 (5-15); Aspartate Aminotransferase 49 U/L (13-40); BUN/Creatinine Ratio 10.3 (10.0-20.0); Blood Urea Nitrogen 34 mg/dL (9-23); Calcium 8.5 mg/dL (8.7-10.4); Carbon Dioxide 14 mmol/L (20-30); Chloride 101 mmol/L (98-107); Glucose 111 mg/dL (74-106); Magnesium 1.8 mg/dL (1.6-2.6); Potassium 4.4 mmol/L (3.5-5.1); Sodium 126 mmol/L (136-145)
[2024-03-17 07:31] LABS: Bilirubin, Total 1.2 mg/dL (0.2-1.0); Total Protein 6.6 g/dL (5.7-8.2)
[2024-03-17 08:00] VITALS: PULSE 110
[2024-03-17 09:00] VITALS: BP 156/93; PULSE 116; RESP 19; TEMP 97.7; O2SAT 99
[2024-03-17] MEDS: MORPHINE SULFATE INJ 2 MG/ml SYRG IV PRN (09:59)
[2024-03-17 12:00] VITALS: BP 88/49; PULSE 112; RESP 19; TEMP 97.7; O2SAT 99
[2024-03-17 14:54] VITALS: BP 113/52; TEMP 36.5
[2024-03-17 20:13] LABS: Body Fluid Red Blood Cells 605 CUMM (0-2000); Body Fluid White Blood Cells 133 CUMM (0-200)
[2024-03-17 20:16] LABS: Body Fluid Polymorphonuclear 42 % (0-25)
[2024-03-18 13:06] LABS: Protein, Body Fluid 1.2 g/dL (.)
== END 2024-03-17 15:20 | disposition hospice, home (50) | DRG 280 ==
LOC: ER 09:52 → EDBD 09:52 → TELE 15:44 → TELE-CENTR 18:43
PROVIDERS: ADMIT Nurse Practitioner Family; ATTEND Internal Medicine Geriatric Medicine
PROC: 0W9G3ZZ Drainage of Peritoneal Cavity, Percutaneous Approach (ICD-10-PCS; principal; 2024-03-11)
PROC: 0W9G3ZZ Drainage of Peritoneal Cavity, Percutaneous Approach (ICD-10-PCS; 2024-03-17)
DX: K70.31 Alcoholic cirrhosis of liver with ascites (principal); K76.7 Hepatorenal syndrome; G93.41 Metabolic encephalopathy; K65.2 Spontaneous bacterial peritonitis; E44.0 Moderate protein-calorie malnutrition; E87.21 Acute metabolic acidosis; K72.10 Chronic hepatic failure without coma; R65.10 Systemic inflammatory response syndrome (SIRS) of non-infectious origin without acute organ dysfunction; E87.1 Hypo-osmolality and hyponatremia; D63.8 Anemia in other chronic diseases classified elsewhere; N17.9 Acute kidney failure, unspecified; Z66 Do not resuscitate; K76.82 Hepatic encephalopathy; N18.9 Chronic kidney disease, unspecified; E03.9 Hypothyroidism, unspecified; F32.A Depression, unspecified; E11.22 Type 2 diabetes mellitus with diabetic chronic kidney disease; E87.6 Hypokalemia; Z90.49 Acquired absence of other specified parts of digestive tract; Z90.710 Acquired absence of both cervix and uterus; Z88.5 Allergy status to narcotic agent; Z68.27 Body mass index [BMI] 27.0-27.9, adult
CPT/HCPCS: 36415; 49083; 71045; 76705; 76942; 80053; 80202; 80307; 80320; 81001; 82140; 83605; 83615; 83690; 83735; 83880; 83986; 84484; 85025; 85610; 85730; 87040; 87081; 87205; 89051; 93005; 96365; 96366; 96375; 97110; 97116; 97163; 97530; G0378; J1885; J2405; J2543; J3430